=== PATIENT | male | born 1965 | race Caucasian/White ===

== ENCOUNTER → 2019-11-23 15:45 | Outpatient (BNVA) | payer MEDICARE, MEDICAID, SELFPAY | PROVIDERS: Family Provider Internal Medicine; PCP Internal Medicine; Visit Provider Urology | DX: N50.812 Left testicular pain (principal); Q55.22 Retractile testis; Z12.5 Encounter for screening for malignant neoplasm of prostate; R39.9 Unspecified symptoms and signs involving the genitourinary system; F17.210 Nicotine dependence, cigarettes, uncomplicated | CPT/HCPCS: 81001 ==

== ENCOUNTER → 2019-12-01 09:39 | Outpatient (BNVA) | payer MEDICARE, MEDICAID, SELFPAY | PROVIDERS: Family Provider Internal Medicine; PCP Internal Medicine; Visit Provider Urology | DX: N50.812 Left testicular pain (principal); Q55.22 Retractile testis; R39.9 Unspecified symptoms and signs involving the genitourinary system | CPT/HCPCS: 81001 ==

== ENCOUNTER 2020-07-10 16:34 | Emergency (ER) | payer MEDICARE, MEDICAID, SELFPAY ==
[2020-07-10 16:40] VITALS: BP 157/92; PULSE 102; RESP 18; TEMP 36.8; O2SAT 97; BMI 32.5
--- NOTE | 2020-07-10 16:48 | CTR_ITS ---
PROCEDURE INFORMATION: Exam: CT Head Without Contrast Exam date and time: 07/10/2020 4:58 PM Age: 54 years old Clinical indication: Injury or trauma; Fall; Blunt trauma (contusions or hematomas); Patient HX: PT could not hold still. Best images possible; Additional info: Frequent falling TECHNIQUE: Imaging protocol: Computed tomography of the head without contrast. Radiation optimization: All CT scans at this facility use at least one of these dose optimization techniques: automated exposure control; mA and/or kV adjustment per patient size (includes targeted exams where dose is matched to clinical indication); or iterative reconstruction. COMPARISON: No relevant prior studies available. RADIATION DOSE METRICS: Total DLP (mGy-cm): 969.8 FINDINGS: Brain: Mild diffuse cortical volume loss. No abnormal brain attenuation. No intracranial hemorrhage. Cerebral ventricles: Cavum septum pellucidum. Bones/joints: Unremarkable. No acute fracture. Paranasal sinuses: Visualized sinuses are unremarkable. No fluid levels. Mastoid air cells: Visualized mastoid air cells are well aerated. Auditory system: Filling defects in the bilateral external auditory canals are most likely cerumen. Vasculature: No hyperdense artery. Soft tissues: Right frontal scalp contusion or scar. Other findings: Images are degraded by motion artifact. CT/CT head wo con* [id number] IMPRESSION: 1. No fracture or acute intracranial abnormality. Radiation Dose CTDIVOL = (mGy): DLP = 969.8 (mGy-cm)
--- NOTE | 2020-07-10 16:48 | CTR_ITS ---
PROCEDURE INFORMATION: Exam: CT Lumbar Spine Without Contrast Exam date and time: 07/10/2020 4:58 PM Age: 54 years old Clinical indication: Injury or trauma; Fall; Blunt trauma (contusions or hematomas); Patient HX: Best images possible. PT unable to hold still or raise arms. ; Additional info: Lbp, frequent falling TECHNIQUE: Imaging protocol: Computed tomography images of the lumbar spine without contrast. Radiation optimization: All CT scans at this facility use at least one of these dose optimization techniques: automated exposure control; mA and/or kV adjustment per patient size (includes targeted exams where dose is matched to clinical indication); or iterative reconstruction. COMPARISON: MRI Lumbar Spine w/o [id number] 07/15/2015 10:01 AM RADIATION DOSE METRICS: Total DLP (mGy-cm): 0 FINDINGS: Vertebrae: Vertebral body heights are preserved. No compression fractures are noted. Vertebral alignment is physiologic. Chronic coarse bridging ossification noted of the right transverse processes from L3 through L5. This may represent a degenerative, congenital, or posttraumatic change. Discs/Spinal canal/Neural foramina: No significant intervertebral disc narrowing. There are disc bulges identified at L1-L2, L2-L3, L3-L4, L4-L5, and L5-S1. There is mild spinal stenosis at each of these levels. Soft tissues: Paraspinous soft tissues are unremarkable. CT/CT lumbar spine wo con* [id number] IMPRESSION: 1. Chronic degenerative changes are noted in the lumbar spine. 2. No acute abnormality demonstrated. Radiation Dose CTDIVOL = (mGy): DLP = 0 (mGy-cm)
--- NOTE | 2020-07-10 16:48 | CTR_ITS ---
PROCEDURE INFORMATION: Exam: CT Cervical Spine Without Contrast Exam date and time: 07/10/2020 4:58 PM Age: 54 years old Clinical indication: Injury or trauma; Fall; Blunt trauma; Patient HX: Best images, PT cannot stay still. ; Additional info: Fall, cerivcal spine point tenderness TECHNIQUE: Imaging protocol: Computed tomography images of the cervical spine without contrast. Radiation optimization: All CT scans at this facility use at least one of these dose optimization techniques: automated exposure control; mA and/or kV adjustment per patient size (includes targeted exams where dose is matched to clinical indication); or iterative reconstruction. COMPARISON: No relevant prior studies available. RADIATION DOSE METRICS: Total DLP (mGy-cm): 1345.55 FINDINGS: Bones/joints: The vertebral body alignment and stature is maintained. 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 The facets are intact with mild degenerative changes. Large subchondral cyst in the left C3 facet. No fracture. Old healed fractures in the posterior right 1st through 3rd ribs. Discs/Spinal canal/Neural foramina: Disc space narrowing at C5-C6 and C6-C7. Bilateral bony foraminal stenosis from C3-C4 through C5-C6. Disc bulges with mild central canal stenosis at C3-C4 and C5-C6. Soft tissues: Normal. Lungs: Lung apices are normal. CT/CT cervical spin wo con* [id number] IMPRESSION: 1. No acute fracture. Radiation Dose CTDIVOL = (mGy): DLP = 1345.55 (mGy-cm)
--- NOTE | 2020-07-10 16:53 | CTR_ITS ---
PROCEDURE INFORMATION: Exam: CT Thoracic Spine Without Contrast Exam date and time: 07/10/2020 4:58 PM Age: 54 years old Clinical indication: Injury or trauma; Fall; Blunt trauma (contusions or hematomas); Patient HX: Best images possible. PT unable to hold still and unable to raise arms. ; Additional info: Throacic spine pain S/P fall TECHNIQUE: Imaging protocol: Computed tomography images of the thoracic spine without contrast. Radiation optimization: All CT scans at this facility use at least one of these dose optimization techniques: automated exposure control; mA and/or kV adjustment per patient size (includes targeted exams where dose is matched to clinical indication); or iterative reconstruction. COMPARISON: No relevant prior studies available. RADIATION DOSE METRICS: Total DLP (mGy-cm): 1630.4 FINDINGS: Vertebrae: Vertebral body heights are preserved. No compression fractures are noted. Vertebral alignment is physiologic. Small bridging syndesmophytes are seen in the upper thoracic spine. Discs/Spinal canal/Neural foramina: No significant intervertebral disc narrowing. No spinal canal or neural foraminal stenosis. Other bones/joints: Old healed fractures of the right 1st through 6th posteromedial ribs. Soft tissues: The paraspinous soft tissues appear unremarkable. CT/CT thoracic spin wo con* [id number] IMPRESSION: 1. No acute fracture demonstrated. 2. Degenerative and old posttraumatic changes of the thoracic spine are noted. Radiation Dose CTDIVOL = (mGy): DLP = 1630.4 (mGy-cm)
--- NOTE | 2020-07-10 16:58 | XR_ITS ---
WS: [id number] Portable AP supine chest, 07/10/2020 Clinical Data: fall Comparison: None. Findings: No nodules, masses or effusions are seen. The heart is slightly enlarged. The pulmonary vas cularity is not increased. No pneumonia or pneumothorax is seen. There are calcified granulomas in th e left hilum and in both lungs.. There are old fractures involving the right first through third ribs in the posterior aspect and an old right clavicular fracture. XR/XR chest 1V portable [id number] Impression: Minimal cardiomegaly and old granulomatous disease.
--- NOTE | 2020-07-10 16:58 | XR_ITS ---
WS: [id number] Right shoulder, 3 views, 07/10/2020 Clinical Data: rt shoulder pain s/p fall Comparison: None. Findings: No new fractures or dislocations are seen. The AC joint is normal. There is an old right midclavicula r fracture. There are old fractures of the posterior right ribs.The soft tissues are normal. XR/XR shoulder RT min 2V* [id number] Impression: 1. Healed fractures of the posterior right ribs and right mid clavicle. 2. Negative right shoulder.
--- NOTE | 2020-07-10 17:11 | PC.NURSE ---
pt off unit to CT
--- NOTE | 2020-07-10 17:20 | ED_ITS ---
Documented by User: KRISTIAN Gonzalez 07/10/20 18:00 HPI - Fall General: Chief Complaint: Fall Stated Complaint: fall / neck pain / ETOH Time Seen by Provider: 07/10/20 16:35 Source: patient and EMS Mode of arrival: EMS Limitations: altered mental status History of Present Illness: HPI Narrative: 54-year-old male patient presents to the emergency department via EMS. EMS report patient was called to the residence, he had fallen and was not able to get up. Unknown amount of time he was down. Is complaining of neck pain and right shoulder pain. He reports numerous falls over the past several weeks, at least 1-2 daily. He reports intake of EtOH, 2 beers , today. Patient reports neck pain and low back pain upon exam. He also report c omplaining of right shoulder pain. He reports tripped on a rock which caused him to fall. MD complaint: fall Fall from: standing Fall witnessed: no Place fall occurred: home Loss of consciousness: Unsure Prolonged down time: unclear Symptoms prior to fall: other (Patient reports he tripped) Context: tripped/slipped (On a rock) Location of injury: neck, back and other (Right shoulder) Location of injury - extremities: Right: shoulder Severity: moderate Quality: dull and aching Associated symptoms-after fall: Reports confusion, difficulty walking, neck pain and weakness; Denies abdominal pain or chest pain Review of Systems General: Reports: 10 or more systems reviewed and unremarkable except in HPI and below Const: Reports: fatigue; Denies: fever(s), chills or diaphoresis Eyes: Denies: blurry vision or eye redness ENMT: Denies: throat pain, hoarseness, dental pain, disequilibrium, nasal discharge, nasal congestion, post nasal drip or sinus pain Card: Reports: orthopnea (after fall today); Denies: chest pain, palpitations or irregular heart rhythm Resp: Reports: dyspnea and wheezing; Denies: productive cough, non-productive cough, pain on inspiration or chest congestion GI: Denies: abdominal pain, nausea, vomiting, coffee ground emesis, diarrhea, constipation, fecal incontinence or hematochezia : Denies: difficulty urinating, dysuria, urinary urgency or urinary incontinence Musc: Reports: neck pain, back pain and joint pain (rt knee, rt shoulder) Skin/Breast: Denies: rash, pruritus, erythema, changing lesions or changes in skin color Neuro: Reports: difficulty walking and confusion Psych: Reports: difficulty concentrating; Denies: anxiety, depression or change in appetite Soto/Lymph: Denies: easy bruising [facility] ED PFSH: Medical History (Updated 07/10/20 @ 18:36 by LON Leblanc) Left testicular pain Lower urinary tract symptoms (LUTS) Retractile testis Family History Mother No problems noted. Father , 45-Cancer Cancer Social History Smoking and tobacco status: current every day smoker Alcohol intake: current Alcohol intake frequency: 3 or more drinks per day Marital status: Current occupational status: disabled History of recent travel: No Physical Exam Const: COMMON NORMALS: no acute distress, healthy appearing, alert and well nourished EXAM LIMITATIONS: altered mental status (smell of ETOH) GENERAL APPEARANCE: cooperative, well kempt, well hydrated and odor of alcohol detected NUTRITIONAL APPEARANCE: obese ORIENTATION/CONSCIOUSNESS: Yes awake, Yes oriented to person and Yes oriented to place HENMT: COMMON NORMALS: normocephalic, atraumatic, external ears normal, Normal external nose present and moist oral mucous membranes HEAD & SCALP: normal to inspection, normocephalic and atraumatic; no contusion, no hematoma and no scalp tenderness FACE & SINUS: normal facial exam, sinuses nontender and face symmetric NOSE: Normal external nose present and Normal nares present EXTERNAL EAR: Yes external ears normal MOUTH: Normal oral and palatal mucosa present Eye: COMMON NORMALS: Equal, round and reactive pupils present and EOMs intact bilaterally GENERAL EYE: appearance normal, both eyes and all related structures PUPIL: Yes Equal, round and reactive pupils present Neck/C-Spine: COMMON NORMALS: full ROM and no lymphadenopathy GENERAL: Yes normal visual inspection and Yes trachea midline CERVICAL SPINE: Yes cervical ROM normal, Yes pain with cervical ROM, Yes Cervical spine tenderness, Yes Trapezius muscle tenderness right and Yes collar present Lymph: LYMPHATIC: no lymphadenopathy noted Chest: COMMONS NORMALS: normal inspection of the chest, normal palpation of entire chest wall, normal inspection of the breasts and normal palpation of the breasts CHEST: No localized rib tenderness with anteroposterior compression Breast/axilla inspection: Yes normal inspection of the breasts BREAST/AXILLA PALPATION: Yes normal palpation of the breasts Resp: COMMON NORMALS: normal respiratory effort, No retractions and No use of accessory muscles EFFORT & INSPECTION: Yes able to speak in complete sentences, Yes symmetric chest movement and No respiratory distress AUSCULTATION: rhonchi right upper and right lower and wheezes right lower and right upper Cardio: COMMON NORMALS: regular rhythm, S1 normal heart sound present, S2 normal heart sound present and Peripheral pulses 2+ throughout RHYTHM: regular rhythm HEART SOUNDS: S1 normal heart sound present and S2 normal heart sound present PERIPHERAL PULSES: Peripheral pulses 2+ throughout GI: COMMON NORMALS: Normal to inspection, nondistended, normoactive bowel sounds present, Soft to palpation and non-tender INSPECTION: Yes normal to inspection PALPATION: Yes Soft to palpation : COMMON NORMALS: Yes no CVA tenderness BLADDER/KIDNEY EXAM: Yes no CVA tenderness Back/Pelvis: COMMON NORMALS: no CVA tenderness THORACIC SPINE/UPPER BACK: Yes normal to inspection, Yes thoracic spinal tenderness, Yes paraspinal muscle tenderness and Yes paraspinal muscle spasm LUMBAR SPINE/LOWER BACK: Yes normal to inspection, Yes lumbar spinal tenderness, Yes paraspinal muscle tenderness, Yes paraspinal muscle spasm, Yes straight leg raise positive right and Yes straight leg raise positive left SACROILIAC JOINTS: Yes SI joints normal Extremity: COMMON NORMALS: normal to inspection and capillary refill normal GENERAL: Yes normal exam except as noted RIGHT UPPER EXTREMITY: Yes shoulder joint (non-tender) Right shoulder: Yes Right shoulder joint inspection exam (small ecchymosis to the anterior axilla), Yes palpation, Yes Right shoulder joint ROM exam (limited due to pain) and Yes Right shoulder joint neurovascular exam (distally intact) RIGHT LOWER EXTREMITY: Yes knee joint Right knee: Yes palpation (pain with palpation), Yes ROM (limited flexion due to pain) and Yes neurovascular exam (distally intact) Neuro: DAMIEN COMA SCALE: document [facility] findings [place] coma scale eye opening: Spontaneous [place] coma scale verbal response: Confused Damien coma scale motor response: Obey commands Damien coma scale total score: 14 COMMON NORMALS: no focal motor deficits SENSORIUM/ORIENTATION: Yes alert, Yes oriented to person and Yes oriented to place SPEECH: speech normal GAIT: Yes Unable to assess gait MOTOR EXAM: 5/5 motor strength present throughout DEEP TENDON REFLEXES: Right ankle reflex intensity grade: 2+ and Left ankle reflex intensity grade: 2+ Right pupil size (mm): 4 Left pupil size (mm): 4 Psych: COMMON NORMALS: mental status grossly normal, Normal thought process present, cooperative, normal affect and speech normal APPEARANCE: Yes well kempt ATTITUDE: Yes calm ACTIVITY/MOTOR BEHAVIOR: Yes appropriate eye contact SPEECH: Yes normal speech THOUGHT PROCESS: Normal thought process present Skin: COMMON NORMALS: no rashes or lesions noted and turgor normal GENERAL SKIN EXAM: no rashes or lesions noted and turgor normal Course Vital Signs: Vital signs: Vital Signs Temperature 98.2 F 07/10/20 16:40 Pulse Rate 105 H 07/10/20 17:52 Respiratory Rate 17 07/10/20 17:52 Blood Pressure 148/87 07/10/20 17:52 Pulse Oximetry 96 07/10/20 17:52 - Fall Lab Data: Labs: Lab Results 07/10/20 07/10/20 Range/Units 17:57 17:57 WBC 8.6 (4.0-10.0) 10^3/ uL RBC 4.53 (4.1-5.3) 10^6/u L Hgb 14.7 (11.7-16.6) g/dL Hct 43.0 (42.0-52.0) % MCV 94.9 H (80-94) fL MCH 32.5 (28.0-34.0) pg MCHC 34.2 (30.0-36.0) g/dL RDW 11.5 L (12.1-15.1) % Plt Count 324 (130-400) 10^3/c mm MPV 9.2 (7.4-10.4) fL Neut % (Auto) 54.7 % Lymph % (Auto) 34.3 % [place] % (Auto) 8.8 % Eos % (Auto) 1.4 % Baso % (Auto) 0.6 % Neut # (Auto) 4.71 (1.8-7.7) 10^3/u L Lymph # (Auto) 3.0 (0.8-4.8) 10^3/u L [place] # (Auto) 0.8 (0.2-0.9) 10^3/u L Eos # (Auto) 0.1 (0.0-0.8) 10^3/u L Baso # (Auto) 0.1 (0.0-0.1) 10^3/u L Nucleated RBC % (a uto) 0 % Nucleated RBCs # 0.0 /100WBC Sodium 141 (136-145) mmol/L Potassium 3.9 (3.5-5.1) mmol/L Chloride 104 (98-107) mmol/L Carbon Dioxide 27 (22-29) mmol/L Anion Gap 13.9 (5-19) BUN 14 (6-20) mg/dL Creatinine 0.7 (0.7-1.2) mg/dL GFR Calculation 117.1 (90-130) mL/min Glucose 132 H (65-115) mg/dL Calculated Osmolal ity 294 (285-295) mOsm/k g Calcium 8.8 (8.5-10.5) mg/dL Total Bilirubin 0.2 (0.15-1.2) mg/dL AST 25 (0-40) U/L ALT 37 (0-41) U/L Alkaline Phosphata se 77 (40-130) IU/L Creatine Kinase 347 H* (39-308) U/L Total Protein 6.3 L (6.6-8.7) g/dL Albumin 4.0 (3.5-5.2) g/dL Globulin 2.3 (1.3-4.6) g/dL Ethyl Alcohol < 10 (0-10) mg/dL Discharge Plan Discharge Patient Disposition: Home Clinical Impression: Neck and shoulder pain Back pain Qualifiers: Back pain location: back pain in other location Chronicity: chronic Qualified Code(s): M54.9 - Dorsalgia, unspecified Condition: Stable Prescriptions: New tramadol 50 mg tablet 50 mg PO TID PRN (Reason: pain) Qty: 10 RF: 0 prednisone 10 mg tablet 20 mg PO DAILY 7 Days Qty: 14 RF: 0 No Action quetiapine [Seroquel] 25 mg tablet 50 mg PO DAILY RF: 0 tamsulosin 0.4 mg capsule 0.4 mg PO .at bedtime Qty: 90 RF: 3 Discharge Orders: Discharge ED (Routine); Ordered 07/10/20 Ordered By: Alberto Barker Referrals: Edward Garcia DO [Primary Care Provider] - Discharge Diet: Usual diet Discharge Activity: Increase activity as tolerated Patient Instructions: Cervical Radiculopathy (ED), Chronic Back Pain (ED) Activity Restrictions/Additional Instructions: Follow-up with medical provider as directed. Take medications as prescribed. Return to the ER or your medical provider if condition worsens. Please read and understand discharge instructions. If any questions ask please. Follow-up your primary care provider concerning your right arm pain that you are having in your neck pain also consider requesting MRI to further evaluate your chronic neck and back changes. Coding Level of Care Code ED Accounts Adjustable Clerk for Chg Fwd Exam Comprehensive Documented by User: LON Leblanc 07/10/20 18:38 HPI - Fall General: Chief Complaint: Fall Stated Complaint: fall / neck pain / ETOH Time Seen by Provider: 07/10/20 16:35 [facility] ED PFSH: Medical History (Updated 07/10/20 @ 18:36 by LON Leblanc) Left testicular pain Lower urinary tract symptoms (LUTS) Retractile testis Family History Mother No problems noted. Father , 45-Cancer Cancer Social History Smoking and tobacco status: current every day smoker Alcohol intake: current Alcohol intake frequency: 3 or more drinks per day Marital status: Current occupational status: disabled History of recent travel: No Course Vital Signs: Vital signs: Vital Signs Temperature 98.2 F 07/10/20 16:40 Pulse Rate 105 H 07/10/20 17:52 Respiratory Rate 17 07/10/20 17:52 Blood Pressure 148/87 07/10/20 17:52 Pulse Oximetry 96 07/10/20 17:52 MDM - Fall MDM Narrative: Medical decision making narrative: I have just discussed case with Dr. dunham. Patient knows he is to follow-up with his primary care provider see about getting MRI on his neck does have chronic degenerative changes neck and back. Patient denies any alcohol abuse call level appeared fine here today patient is drinking to help with his discomfort. Lab Data: Labs: Lab Results 07/10/20 07/10/20 Range/Units 17:57 17:57 WBC 8.6 (4.0-10.0) 10^3/ uL RBC 4.53 (4.1-5.3) 10^6/u L Hgb 14.7 (11.7-16.6) g/dL Hct 43.0 (42.0-52.0) % MCV 94.9 H (80-94) fL MCH 32.5 (28.0-34.0) pg MCHC 34.2 (30.0-36.0) g/dL RDW 11.5 L (12.1-15.1) % Plt Count 324 (130-400) 10^3/c mm MPV 9.2 (7.4-10.4) fL Neut % (Auto) 54.7 % Lymph % (Auto) 34.3 % [place] % (Auto) 8.8 % Eos % (Auto) 1.4 % Baso % (Auto) 0.6 % Neut # (Auto) 4.71 (1.8-7.7) 10^3/u L Lymph # (Auto) 3.0 (0.8-4.8) 10^3/u L [place] # (Auto) 0.8 (0.2-0.9) 10^3/u L Eos # (Auto) 0.1 (0.0-0.8) 10^3/u L Baso # (Auto) 0.1 (0.0-0.1) 10^3/u L Nucleated RBC % (a uto) 0 % Nucleated RBCs # 0.0 /100WBC Sodium 141 (136-145) mmol/L Potassium 3.9 (3.5-5.1) mmol/L Chloride 104 (98-107) mmol/L Carbon Dioxide 27 (22-29) mmol/L Anion Gap 13.9 (5-19) BUN 14 (6-20) mg/dL Creatinine 0.7 (0.7-1.2) mg/dL GFR Calculation 117.1 (90-130) mL/min Glucose 132 H (65-115) mg/dL Calculated Osmolal ity 294 (285-295) mOsm/k g Calcium 8.8 (8.5-10.5) mg/dL Total Bilirubin 0.2 (0.15-1.2) mg/dL AST 25 (0-40) U/L ALT 37 (0-41) U/L Alkaline Phosphata se 77 (40-130) IU/L Creatine Kinase 347 H* (39-308) U/L Total Protein 6.3 L (6.6-8.7) g/dL Albumin 4.0 (3.5-5.2) g/dL Globulin 2.3 (1.3-4.6) g/dL Ethyl Alcohol < 10 (0-10) mg/dL Discharge Plan Discharge Patient Disposition: Home Clinical Impression: Neck and shoulder pain Back pain Qualifiers: Back pain location: back pain in other location Chronicity: chronic Qualified Code(s): M54.9 - Dorsalgia, unspecified Condition: Stable Prescriptions: New tramadol 50 mg tablet 50 mg PO TID PRN (Reason: pain) Qty: 10 RF: 0 prednisone 10 mg tablet 20 mg PO DAILY 7 Days Qty: 14 RF: 0 No Action quetiapine [Seroquel] 25 mg tablet 50 mg PO DAILY RF: 0 tamsulosin 0.4 mg capsule 0.4 mg PO .at bedtime Qty: 90 RF: 3 Discharge Orders: Discharge ED (Routine); Ordered 07/10/20 Ordered By: Alberto Barker Referrals: Edward Garcia DO [Primary Care Provider] - Discharge Diet: Usual diet Discharge Activity: Increase activity as tolerated Patient Instructions: Cervical Radiculopathy (ED), Chronic Back Pain (ED) Activity Restrictions/Additional Instructions: Follow-up with medical provider as directed. Take medications as prescribed. Return to the ER or your medical provider if condition worsens. Please read and understand discharge instructions. If any questions ask please. Follow-up your primary care provider concerning your right arm pain that you are having in your neck pain also consider requesting MRI to further evaluate your chronic neck and back changes. Coding Level of Care Code ED Accounts Adjustable Clerk for Joe Fwd Exam Comprehensive
--- NOTE | 2020-07-10 17:23 | XR_ITS ---
WS: [id number] Right knee, 3 views, 07/10/2020 Clinical Data: rt knee pain Comparison: None. Findings: No new fractures or dislocations are seen. There is an healed fracture of the proximal right fibula T here is narrowing of the medial joint compartment with small spurs of the medial femoral condyle and medial tibial plateau.There is an anterior superior and a posterior superior patellar spur but no pat ellar fracture. The soft tissues are normal. XR/XR knee RT 3V* [id number] Impression: 1. 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 2. Old fracture of the proximal right fibula. 3. Negative for new fractures.
--- NOTE | 2020-07-10 17:36 | PC.NURSE ---
pt back from CT, Xray in room
[2020-07-10 17:52] VITALS: BP 148/87; PULSE 105; RESP 17; O2SAT 96
[2020-07-10] MEDS: sodium chloride 0.9% 500 ML 999 ML IV (18:04)
[2020-07-10 18:06] LABS: Basophils # 0.1 10^3/uL (0.0-0.1); Basophils % 0.6 %; Eosinophils # 0.1 10^3/uL (0.0-0.8); Eosinophils % 1.4 %; Hemoglobin 14.7 g/dL (11.7-16.6); Lymphocytes % 34.3 %; Mean Corpuscular HGB Conc 34.2 g/dL (30.0-36.0); Mean Corpuscular Hemoglobin 32.5 pg (28.0-34.0); Mean Corpuscular Volume 94.9 fL (80-94); Mean Platelet Volume 9.2 fL (7.4-10.4); Monocytes # 0.8 10^3/uL (0.2-0.9); Monocytes % 8.8 %; Neutrophils # 4.71 10^3/uL (1.8-7.7); Neutrophils % 54.7 %; Nucleated Red Blood Cells % 0 %; Platelet Count 324 10^3/cmm (130-400); Red Blood Count 4.53 10^6/uL (4.1-5.3); Red Cell Distribution Width 11.5 % (12.1-15.1); White Blood Count 8.6 10^3/uL (4.0-10.0)
[2020-07-10] MEDS: cyanocobalamin 1,000 mcg/mL SDV 1000 MCG IM (18:08)
[2020-07-10 18:22] LABS: Alanine Aminotransferase 37 U/L (0-41); Alkaline Phosphatase 77 IU/L (40-130); Aspartate Amino Transferase 25 U/L (0-40); Blood Urea Nitrogen 14 mg/dL (6-20); Calcium 8.8 mg/dL (8.5-10.5); Carbon Dioxide 27 mmol/L (22-29); Chloride 104 mmol/L (98-107); Globulin 2.3 g/dL (1.3-4.6); Glomerular Filtration Rate 117.1 mL/min (90-130); Glucose 132 mg/dL (65-115); Osmolality Calculated 294 mOsm/kg (285-295); Sodium 141 mmol/L (136-145); Total Bilirubin 0.2 mg/dL (0.15-1.2); Total Protein 6.3 g/dL (6.6-8.7)
[2020-07-10 18:23] LABS: Alcohol Level < 10 mg/dL (0-10); Anion Gap 13.9 (5-19); Potassium 3.9 mmol/L (3.5-5.1)
[2020-07-10 18:24] LABS: Creatine Phosphokinase 347 U/L (39-308)
[2020-07-10 18:54] VITALS: BP 147/99; PULSE 109; RESP 17; O2SAT 98
--- NOTE | 2020-07-11 00:46 | PC.NURSE ---
well patient call at [phone] by this RN no answer by patient
--- NOTE | 2020-07-11 06:16 | PC.NURSE ---
This RN called patient home phone for well check, no answer at [phone]
== END 2020-07-10 18:55 | disposition home or self-care (01) ==
PROVIDERS: Nurse Practitioner Family; Emergency Provider Nurse Practitioner Family; PCP Internal Medicine
DX: M54.2 Cervicalgia (principal); M54.9 Dorsalgia, unspecified; M25.511 Pain in right shoulder; F17.210 Nicotine dependence, cigarettes, uncomplicated
CPT/HCPCS: 12345; 70450; 71045; 72125; 72128; 72131; 73030; 73562; 80053; 80307; 82550; 85025; 96372; 99282; 99284; J3411; J3420; J7040

== ENCOUNTER 2020-08-02 19:59 | Inpatient (IN) | payer MEDICARE, MEDICAID, SELFPAY ==
[2020-08-02 19:59] VITALS: BP 163/112; PULSE 94; RESP 16; TEMP 37; O2SAT 98; BMI 31.7
--- NOTE | 2020-08-02 20:39 | XRR_ITS ---
PROCEDURE INFORMATION: Exam: XR Chest, 1 View Exam date and time: 08/02/2020 8:52 PM Age: 54 years old Clinical indication: Injury or trauma; Blunt trauma (contusions or hematomas); Injury date: 2 weeks ago; Injury details: Fall, right rib pain. ; Additional info: Dyspnea. Right rib pain TECHNIQUE: Imaging protocol: XR of the chest Views: 1 view. Total images: 1 COMPARISON: CR XR chest 1V portable [id number] 07/10/2020 5:30 PM FINDINGS: Lungs: No visible active interstitial or alveolar airspace disease. Evidence of antecedent granulomatous disease. Pleural space: Unremarkable. No pleural effusion. No pneumothorax. Heart/Mediastinum: Cardiac structures and configuration stable and within normal limits for age. Bones/joints: Unremarkable. XR/XR chest 1V portable [id number] IMPRESSION: Nonacute.
--- NOTE | 2020-08-02 20:49 | XRR_ITS ---
NOTE: Order was edited. Original signature date/time was: 08/02/20 2313 PROCEDURE INFORMATION: Exam: XR Bilateral Hips with Pelvis when Performed Exam date and time: 08/02/2020 8:52 PM Age: 54 years old Clinical indication: Injury or trauma; Blunt trauma (contusions or hematomas); Bilateral; Injury details: Fall x 2 weeks ago, hit right side of body, right leg pain and right rib pain. ; Prior surgery; Surgery type: Lt hip; Additional info: Falls/pain TECHNIQUE: Imaging protocol: XR bilateral hips with pelvis when performed. Views: 2 views. Total images: 5 COMPARISON: MRI Hip w/o RIGHT [id number] 07/19/2019 9:53 AM FINDINGS: Bones/joints: No visible acute osseous abnormality. Left total hip prosthesis in satisfactory position without evidence for loosening or dislocation. Soft tissues: Associated extensive myositis ossificans left hip. MTDD XR/XR hip BI 2V wo/w pel [id number] IMPRESSION: Nonacute.
--- NOTE | 2020-08-02 20:51 | ECG_ITS ---
[facility] Test Date: 2020-08-02 Pat Name: Spenser Lunsford Department: Room: Gender: Male Principal Trainer: : 1965 Requested By: Johnny Kaiser Order Number: [id number] Diaz MD: Magdy Washington M.D. Measurements Intervals [place] Rate: 93 P: 75 UT: 119 QRS: 56 QRSD: 81 T: 76 QT: 360 QTc: 448 Interpretive Statements SINUS RHYTHM WITH SINUS ARRHYTHMIA WITH SHORT UT INTERVAL No previous ECG available for comparison Electronically Signed On 08-03-2020 16:43:03 APPLICATION SUPPORT ENGINEER by Magdy Washington M.D. [email or web address] medical [email or web address] county [email or web address] Skip [id number] f
--- NOTE | 2020-08-02 20:51 | ED_ITS ---
HPI - Fall General: Chief Complaint: Fall Stated Complaint: WEAKNESS Time Seen by Provider: 08/02/20 20:09 History of Present Illness: HPI Narrative: The patient is a 54-year-old male with known alcoholism and drug abuse comes to the ER by ambulance today compl aining of continued right rib pain and bilateral hip pain related to falls 2 and 4 weeks ago. He says he comes in today to get admitted because he needs to stay for 3 days so he can get into a skilled nursing for rehab so he can get better to take care of his kids. He says he has chronic issues and weakness and shortness of breath related to his COPD and admits he is short of breath chronically with exertion and he is short of breath during history taking. He also admits to chronic alcoholism and stopping drinking alcohol within the last week or 2. He says over the past number of days he has started having his lower extremities shake uncontrollably and stiffen. Associated symptoms-after fall: Denies abdominal pain, chest pain, confusion, difficulty walking, headache(s) or neck pain Review of Systems General: Reports: 10 or more systems reviewed and unremarkable except in HPI and below Const: Denies: fatigue Eyes: Denies: change in vision, blurry vision or eye redness ENMT: Denies: throat pain, swelling of lips/tongue, ear or mastoid pain or nasal congestion Card: Reports: dyspnea on exertion; Denies: chest pain, palpitations, irregular heart rhythm, edema or orthopnea Resp: Reports: dyspnea and non-productive cough; Denies: productive cough GI: Denies: abdominal pain, diarrhea or GI cramping : Denies: flank pain, urinary frequency or urinary urgency Musc: Denies: neck pain, back pain, extremity pain, joint pain, joint redness, limited range of motion or muscle weakness Skin/Breast: Denies: rash, pruritus, erythema, skin pain or skin tenderness Neuro: Reports: involuntary movements (Of lower extremities); Denies: headache(s), numbness in extremities, weakness in extremities, sensory changes, difficulty walking, dizziness, confusion or Slurred speech present Psych: Denies: anxiety or depression Endo: Denies: polyuria All/Imm: Denies: urticaria, throat swelling or tongue swelling [facility] ED PFSH: Medical History COPD (chronic obstructive pulmonary disease) Left testicular pain Lower urinary tract symptoms (LUTS) Retractile testis Surgical History S/P hip arthroscopy Family History Mother No problems noted. Father , 45-Cancer Cancer Social History Smoking and tobacco status: current every day smoker Alcohol intake: current Alcohol intake frequency: 3 or more drinks per day Marital status: Current occupational status: disabled History of recent travel: No Physical Exam Narrative: EXAM NARRATIVE: He has myoclonic jerking of his lower extremities and horizontal nystagmus. These findings are consistent with alcohol withdrawal disorder. Also he is tachycardic which is also consistent. He has mild tenderness to his right chest wall and hips bilaterally. He has many scabs on his calfs and feet bilaterally possibly from injecting drugs versus picking scabs. He has very poor dentition. Const: COMMON NORMALS: no acute distress, average body habitus, patient oriented x3, no limitations, alert and well nourished GENERAL APPEARANCE: comfortable, well developed and disheveled ORIENTATION/CONSCIOUSNESS: Yes awake, Yes oriented to person, Yes oriented to place and Yes oriented to time HENMT: COMMON NORMALS: normocephalic, external ears normal and Normal external nose present HEAD & SCALP: normal to inspection and normocephalic NOSE: Normal external nose present EXTERNAL EAR: Yes external ears normal MOUTH: Normal oral and palatal mucosa present THROAT: posterior oropharynx normal Eye: COMMON NORMALS: Equal, round and reactive pupils present and EOMs intact bilaterally GENERAL EYE: appearance normal, both eyes and all related structures PUPIL: Yes Equal, round and reactive pupils present EOM: Yes Nystagmus present Neck/C-Spine: COMMON NORMALS: full ROM, no lymphadenopathy, no meningeal signs and no JVD GENERAL: Yes normal visual inspection Lymph: LYMPHATIC: no lymphadenopathy noted Chest: COMMONS NORMALS: normal inspection of the chest (Mild discomfort to palpation of right lower chest wall. ) Resp: COMMON NORMALS: normal respiratory effort, No retractions, No use of accessory muscles and percussion normal EFFORT & INSPECTION: Yes able to sp eak in complete sentences AUSCULTATION: wheezes and diminished lung sounds PERCUSSION: percussion normal Cardio: COMMON NORMALS: no JVD, regular rhythm, S1 normal heart sound present, S2 normal heart sound present and Peripheral pulses 2+ throughout RATE: tachycardic RHYTHM: regular rhythm HEART SOUNDS: S1 normal heart sound present and S2 normal heart sound present PERIPHERAL PULSES: Peripheral pulses 2+ throughout GI: COMMON NORMALS: Normal to inspection, nondistended, normoactive bowel sounds present, Soft to palpation, non-tender and no masses INSPECTION: Yes normal to inspection PALPATION: Yes Soft to palpation : COMMON NORMALS: Yes no CVA tenderness BLADDER/KIDNEY EXAM: Yes no CVA t enderness Back/Pelvis: COMMON NORMALS: no CVA tenderness, thoracic and lumbar spine normal to inspection, no thoracic nor lumbar tenderness and thoraco-lumbar ROM normal Extremity: COMMON NORMALS: normal to inspection, full ROM, capillary refill normal, no joint enlargement and no pedal edema NARRATIVE EXTREMITY EXAM: Scabs to lower extremities approximately 20 in number possibly from picking scabs versus drug injection but unclear of cause. GENERAL: Yes normal exam except as noted Neuro: COMMON NORMALS: patient oriented x3, CN's II-XII intact bilaterally, moves all extremities, no focal motor deficits and no sensory deficits noted SENSORIUM/ORIENTATION: Yes alert, Yes oriented to person, Yes oriented to place and Yes oriented to time MENINGEAL SIGNS: Yes no meningeal signs GAIT: Yes Unable to assess gait MOTOR EXAM: 5/5 motor strength present throughout (Power 4 to 5 out of 5 in all extremities. No focal deficit) OTHER: Distal lower extremities bilaterally. Consistent with alcohol withdrawal disorder Psych: COMMON NORMALS: mental status grossly normal, Normal thought process present, cooperative and speech normal APPEARANCE: Yes unkempt ATTITUDE: Yes paranoid, Yes bizarre and Yes uncooperative SPEECH: Yes normal speech THOUGHT PROCESS: Normal thought process present Skin: COMMON NORMALS: no rashes or lesions noted GENERAL SKIN EXAM: no rashes or lesions noted Course Vital Signs: Vital signs: Vital Signs Temperature 98.6 F 08/02/20 19:59 Pulse Rate 79 08/02/20 21:54 Respiratory Rate 16 08/02/20 21:40 Blood Pressure 163/112 08/02/20 19:59 Pulse Oximetry 97 08/02/20 21:40 MDM - Fall MDM Narrative: Medical decision making narrative: This patient came in for pain related to recent falls although he is clearly in alcohol withdrawal disorder with myoclonus to bilateral lower extremities. He is also tachycardic. He was given Ativan and is resting comfortably. Recommended admission to the ICU which he is excepting of. accepts to ICU. Differential Diagnosis: Fall Differential Diagnosis: Likely syncope and compression fracture Lab Data: Labs: Lab Results 08/02/20 08/02/20 08/02/20 Range/Units 20:40 20:40 20:40 WBC 5.8 (4.0-10.0) 10^3/ uL RBC 4.52 (4.1-5.3) 10^6/u L Hgb 14.5 (11.7-16.6) g/dL Hct 42.9 (42.0-52.0) % MCV 94.9 H (80-94) fL MCH 32.1 (28.0-34.0) pg MCHC 33.8 (30.0-36.0) g/dL RDW 11.3 L (12.1-15.1) % Plt Count 403 H (130-400) 10^3/c mm MPV 9.7 (7.4-10.4) fL Neut % (Auto) 49.3 % Lymph % (Auto) 36.1 % Candler % (Auto) 10.9 % Eos % (Auto) 2.8 % Baso % (Auto) 0.7 % Neut # (Auto) 2.84 (1.8-7.7) 10^3/u L Lymph # (Auto) 2.1 (0.8-4.8) 10^3/u L Candler # (Auto) 0.6 (0.2-0.9) 10^3/u L Eos # (Auto) 0.2 (0.0-0.8) 10^3/u L Baso # (Auto) 0.0 (0.0-0.1) 10^3/u L Nucleated RBC % (a uto) 0 % Nucleated RBCs # 0.0 /100WBC PT (12.1-14.9) SECO NDS INR (0.8-1.2) Specimen Type Sample Site ABG pH (7.35-7.45) ABG pCO2 (35-45) mmHg ABG pO2 (80.0-100.0) mmH g ABG HCO3 (22-26) mmol/L ABG Base Excess (-2.0-2.0) mmol/ L Servando Test Hematocrit (42-52) % Hgb O2 Saturation (95-100) % Carboxyhemoglobin (0.4-20.1) %THgb Methemoglobin (0.4-1.5) % Total Hemoglobin (14-18) g/dL O2 Delivery Device FiO2 % Road Design Engineer ID Sodium 143 (136-145) mmol/L Potassium 4.1 (3.5-5.1) mmol/L Chloride 105 (98-107) mmol/L Carbon Dioxide 30 H (22-29) mmol/L Anion Gap 12.1 (5-19) BUN 10 (6-20) mg/dL Creatinine 0.7 (0.7-1.2) mg/dL GFR Calculation 117.1 (90-130) mL/min Glucose 125 H (65-115) mg/dL Calculated Osmolal ity 297 H (285-295) mOsm/k g Lactate 1.7 (0.5-2.2) mmol/L Calcium 9.2 (8.5-10.5) mg/dL Total Bilirubin 0.3 (0.15-1.2) mg/dL AST 23 (0-40) U/L ALT 32 (0-41) U/L Alkaline Phosphata se 209 H (40-130) IU/L Troponin T Baselin e (0-15) ng/L Troponin T 120 Min [place] (0-15) ng/L Delta Troponin T (0-10) ABS# Total Protein 6.2 L (6.6-8.7) g/dL Albumin 4.0 (3.5-5.2) g/dL Globulin 2.2 (1.3-4.6) g/dL TSH 2.34 (0.27-4.20) uIU/ mL Urine Color (Yellow) Urine Appearance (CLEAR) Urine pH (5-7) Ur Specific Gravit y (1.005-1.030) Urine Protein (Negative) Urine Glucose (UA) (Normal) Urine Ketones (Negative) Urine Blood (Negative) Urine Nitrate (Negative) Urine Bilirubin (Negative) Urine Urobilinogen (Negative) mg/dL Ur Leukocyte Dede ase (Negative) Urine Opiates Scre en (Negative) ng/mL Ur Barbiturates Sc reen (Negative) ng/mL Ur Phencyclidine S crn (Negative) ng/mL Ur Amphetamines Sc reen (Negative) ng/mL U Benzodiazepines Scrn (Negative) ng/mL Urine Cocaine Scre en (Negative) ng/mL U Marijuana (THC) Screen (Negative) ng/mL Ethyl Alcohol < 10 (0-10) mg/dL Influenza Type A A g (Negative) Influenza Type B A g (Negative) 08/02/20 08/02/20 08/02/20 Range/Units 20:40 20:40 21:50 WBC (4.0-10.0) 10^3/ uL RBC (4.1-5.3) 10^6/u L Hgb (11.7-16.6) g/dL Hct (42.0-52.0) % MCV (80-94) fL MCH (28.0-34.0) pg MCHC (30.0-36.0) g/dL RDW (12.1-15.1) % Plt Count (130-400) 10^3/c mm MPV (7.4-10.4) fL Neut % (Auto) % Lymph % (Auto) % Candler % (Auto) % Eos % (Auto) % Baso % (Auto) % Neut # (Auto) (1.8-7.7) 10^3/u L Lymph # (Auto) (0.8-4.8) 10^3/u L Candler # (Auto) (0.2-0.9) 10^3/u L Eos # (Auto) (0.0-0.8) 10^3/u L Baso # (Auto) (0.0-0.1) 10^3/u L Nucleated RBC % (a uto) % Nucleated RBCs # /100WBC PT 12.70 (12.1-14.9) SECO NDS INR 0.93 (0.8-1.2) Specimen Type Arterial Sample Site Radial, left ABG pH 7.44 (7.35-7.45) ABG pCO2 45.4 H (35-45) mmHg ABG pO2 69.9 L (80.0-100.0) mmH g ABG HCO3 30.7 H (22-26) mmol/L ABG Base Excess 5.6 H (-2.0-2.0) mmol/ L Servando Test Pos Hematocrit 45.8 (42-52) % Hgb O2 Saturation 92.7 L (95-100) % Carboxyhemoglobin 2.3 (0.4-20.1) %THgb Methemoglobin 0.6 (0.4-1.5) % Total Hemoglobin 14.9 (14-18) g/dL O2 Delivery Device Room air FiO2 21.0 % Road Design Engineer ID Jlg Sodium (136-145) mmol/L Potassium (3.5-5.1) mmol/L Chloride (98-107) mmol/L Carbon Dioxide (22-29) mmol/L Anion Gap (5-19) BUN (6-20) mg/dL Creatinine (0.7-1.2) mg/dL GFR Calculation (90-130) mL/min Glucose (65-115) mg/dL Calculated Osmolal ity (285-295) mOsm/k g Lactate (0.5-2.2) mmol/L Calcium (8.5-10.5) mg/dL Total Bilirubin (0.15-1.2) mg/dL AST (0-40) U/L ALT (0-41) U/L Alkaline Phosphata se (40-130) IU/L Troponin T Baselin e 22 H (0-15) ng/L Troponin T 120 Min [place] (0-15) ng/L Delta Troponin T (0-10) ABS# Total Protein (6.6-8.7) g/dL Albumin (3.5-5.2) g/dL Globulin (1.3-4.6) g/dL TSH (0.27-4.20) uIU/ mL Urine Color (Yellow) Urine Appearance (CLEAR) Urine pH (5-7) Ur Specific Gravit y (1.005-1.030) Urine Protein (Negative) Urine Glucose (UA) (Normal) Urine Ketones (Negative) Urine Blood (Negative) Urine Nitrate (Negative) Urine Bilirubin (Negative) Urine Urobilinogen (Negative) mg/dL Ur Leukocyte Dede ase (Negative) Urine Opiates Scre en (Negative) ng/mL Ur Barbiturates Sc reen (Negative) ng/mL Ur Phencyclidine S crn (Negative) ng/mL Ur Amphetamines Sc reen (Negative) ng/mL U Benzodiazepines Scrn (Negative) ng/mL Urine Cocaine Scre en (Negative) ng/mL U Marijuana (THC) Screen (Negative) ng/mL Ethyl Alcohol (0-10) mg/dL Influenza Type A A g (Negative) Influenza Type B A g (Negative) 08/02/20 08/02/20 08/02/20 Range/Units 21:53 21:53 21:58 WBC (4.0-10.0) 10^3/ uL RBC (4.1-5.3) 10^6/u L Hgb (11.7-16.6) g/dL Hct (42.0-52.0) % MCV (80-94) fL MCH (28.0-34.0) pg MCHC (30.0-36.0) g/dL RDW (12.1-15.1) % Plt Count (130-400) 10^3/c mm MPV (7.4-10.4) fL Neut % (Auto) % Lymph % (Auto) % Candler % (Auto) % Eos % (Auto) % Baso % (Auto) % Neut # (Auto) (1.8-7.7) 10^3/u L Lymph # (Auto) (0.8-4.8) 10^3/u L Candler # (Auto) (0.2-0.9) 10^3/u L Eos # (Auto) (0.0-0.8) 10^3/u L Baso # (Auto) (0.0-0.1) 10^3/u L Nucleated RBC % (a uto) % Nucleated RBCs # /100WBC PT (12.1-14.9) SECO NDS INR (0.8-1.2) Specimen Type Sample Site ABG pH (7.35-7.45) ABG pCO2 (35-45) mmHg ABG pO2 (80.0-100.0) mmH g ABG HCO3 (22-26) mmol/L ABG Base Excess (-2.0-2.0) mmol/ L Servando Test Hematocrit (42-52) % Hgb O2 Saturation (95-100) % Carboxyhemoglobin (0.4-20.1) %THgb Methemoglobin (0.4-1.5) % Total Hemoglobin (14-18) g/dL O2 Delivery Device FiO2 % Road Design Engineer ID Sodium (136-145) mmol/L Potassium (3.5-5.1) mmol/L Chloride (98-107) mmol/L Carbon Dioxide (22-29) mmol/L Anion Gap (5-19) BUN (6-20) mg/dL Creatinine (0.7-1.2) mg/dL GFR Calculation (90-130) mL/min Glucose (65-115) mg/dL Calculated Osmolal ity (285-295) mOsm/k g Lactate (0.5-2.2) mmol/L Calcium (8.5-10.5) mg/dL Total Bilirubin (0.15-1.2) mg/dL AST (0-40) U/L ALT (0-41) U/L Alkaline Phosphata se (40-130) IU/L Troponin T Baselin e (0-15) ng/L Troponin T 120 Min [place] (0-15) ng/L Delta Troponin T (0-10) ABS# Total Protein (6.6-8.7) g/dL Albumin (3.5-5.2) g/dL Globulin (1.3-4.6) g/dL TSH (0.27-4.20) uIU/ mL Urine Color Yellow (Yellow) Urine Appearance Clear (CLEAR) Urine pH 7 (5-7) Ur Specific Gravit y 1.010 (1.005-1.030) Urine Protein Neg (Negative) Urine Glucose (UA) Norm (Normal) Urine Ketones 1+ H (Negative) Urine Blood Neg (Negative) Urine Nitrate Negative (Negative) Urine Bilirubin Neg (Negative) Urine Urobilinogen Norm (Negative) mg/dL Ur Leukocyte Dede ase Negative (Negative) Urine Opiates Scre en Negative (Negative) ng/mL Ur Barbiturates Sc reen Negative (Negative) ng/mL Ur Phencyclidine S crn Negative (Negative) ng/mL Ur Amphetamines Sc reen Positive H (Negative) ng/mL U Benzodiazepines Scrn Negative (Negative) ng/mL Urine Cocaine Scre en Negative (Negative) ng/mL U Marijuana (THC) Screen Positive H (Negative) ng/mL Ethyl Alcohol (0-10) mg/dL Influenza Type A A g Negative (Negative) Influenza Type B A g Negative (Negative) 08/02/20 Range/Units 23:30 WBC (4.0-10.0) 10^3/ uL RBC (4.1-5.3) 10^6/u L Hgb (11.7-16.6) g/dL Hct (42.0-52.0) % MCV (80-94) fL MCH (28.0-34.0) pg MCHC (30.0-36.0) g/dL RDW (12.1-15.1) % Plt Count (130-400) 10^3/c mm MPV (7.4-10.4) fL Neut % (Auto) % Lymph % (Auto) % Candler % (Auto) % Eos % (Auto) % Baso % (Auto) % Neut # (Auto) (1.8-7.7) 10^3/u L Lymph # (Auto) (0.8-4.8) 10^3/u L Candler # (Auto) (0.2-0.9) 10^3/u L Eos # (Auto) (0.0-0.8) 10^3/u L Baso # (Auto) (0.0-0.1) 10^3/u L Nucleated RBC % (a uto) % Nucleated RBCs # /100WBC PT (12.1-14.9) SECO NDS INR (0.8-1.2) Specimen Type Sample Site ABG pH (7.35-7.45) ABG pCO2 (35-45) mmHg ABG pO2 (80.0-100.0) mmH g ABG HCO3 (22-26) mmol/L ABG Base Excess (-2.0-2.0) mmol/ L Servando Test Hematocrit (42-52) % Hgb O2 Saturation (95-100) % Carboxyhemoglobin (0.4-20.1) %THgb Methemoglobin (0.4-1.5) % Total Hemoglobin (14-18) g/dL O2 Delivery Device FiO2 % Road Design Engineer ID Sodium (136-145) mmol/L Potassium (3.5-5.1) mmol/L Chloride (98-107) mmol/L Carbon Dioxide (22-29) mmol/L Anion Gap (5-19) BUN (6-20) mg/dL Creatinine (0.7-1.2) mg/dL GFR Calculation (90-130) mL/min Glucose (65-115) mg/dL Calculated Osmolal ity (285-295) mOsm/k g Lactate (0.5-2.2) mmol/L Calcium (8.5-10.5) mg/dL Total Bilirubin (0.15-1.2) mg/dL AST (0-40) U/L ALT (0-41) U/L Alkaline Phosphata se (40-130) IU/L Troponin T Baselin e (0-15) ng/L Troponin T 120 Min [place] 24.45 H (0-15) ng/L Delta Troponin T 2.45 (0-10) ABS# Total Protein (6.6-8.7) g/dL Albumin (3.5-5.2) g/dL Globulin (1.3-4.6) g/dL TSH (0.27-4.20) uIU/ mL Urine Color (Yellow) Urine Appearance (CLEAR) Urine pH (5-7) Ur Specific Gravit y (1.005-1.030) Urine Protein (Negative) Urine Glucose (UA) (Normal) Urine Ketones (Negative) Urine Blood (Negative) Urine Nitrate (Negative) Urine Bilirubin (Negative) Urine Urobilinogen (Negative) mg/dL Ur Leukocyte Dede ase (Negative) Urine Opiates Scre en (Negative) ng/mL Ur Barbiturates Sc reen (Negative) ng/mL Ur Phencyclidine S crn (Negative) ng/mL Ur Amphetamines Sc reen (Negative) ng/mL U Benzodiazepines Scrn (Negative) ng/mL Urine Cocaine Scre en (Negative) ng/mL U Marijuana (THC) Screen (Negative) ng/mL Ethyl Alcohol (0-10) mg/dL Influenza Type A A g (Negative) Influenza Type B A g (Negative) Discharge Plan Discharge Patient Disposition: Admitted As Inpatient Clinical Impression: Episode of generalized weakness Alcohol withdrawal Qualifiers: Complication of substance-induced condition: with unspecified complication Qualified Code(s): F10.239 - Alcohol dependence with withdrawal, unspecified Condition: Stable Discharge Diet: Usual diet Coding Level of Care Code ED Industrial Analyst for g Fwd Exam Comprehensive
[2020-08-02 21:08] LABS: Basophils % 0.7 %; Eosinophils # 0.2 10^3/uL (0.0-0.8); Eosinophils % 2.8 %; Hematocrit 42.9 % (42.0-52.0); Hemoglobin 14.5 g/dL (11.7-16.6); Lymphocytes # 2.1 10^3/uL (0.8-4.8); Lymphocytes % 36.1 %; Mean Corpuscular HGB Conc 33.8 g/dL (30.0-36.0); Mean Corpuscular Hemoglobin 32.1 pg (28.0-34.0); Mean Corpuscular Volume 94.9 fL (80-94); Mean Platelet Volume 9.7 fL (7.4-10.4); Monocytes # 0.6 10^3/uL (0.2-0.9); Monocytes % 10.9 %; Neutrophils # 2.84 10^3/uL (1.8-7.7); Neutrophils % 49.3 %; Nucleated Red Blood Cells % 0 %; Platelet Count 403 10^3/cmm (130-400); Red Blood Count 4.52 10^6/uL (4.1-5.3); Red Cell Distribution Width 11.3 % (12.1-15.1); White Blood Count 5.8 10^3/uL (4.0-10.0)
[2020-08-02 21:18] LABS: INR 0.93 (0.8-1.2)
[2020-08-02 21:28] LABS: Lactate (Lactic Acid level) 1.7 mmol/L (0.5-2.2)
[2020-08-02 21:30] LABS: Troponin(5th) Baseline 22 ng/L (0-15)
[2020-08-02 21:34] LABS: Alanine Aminotransferase 32 U/L (0-41); Alkaline Phosphatase 209 IU/L (40-130); Anion Gap 12.1 (5-19); Aspartate Amino Transferase 23 U/L (0-40); Blood Urea Nitrogen 10 mg/dL (6-20); Calcium 9.2 mg/dL (8.5-10.5); Carbon Dioxide 30 mmol/L (22-29); Chloride 105 mmol/L (98-107); Globulin 2.2 g/dL (1.3-4.6); Glomerular Filtration Rate 117.1 mL/min (90-130); Glucose 125 mg/dL (65-115); Osmolality Calculated 297 mOsm/kg (285-295); Potassium 4.1 mmol/L (3.5-5.1); Sodium 143 mmol/L (136-145); Thyroid Stimulating Hormone 2.34 uIU/mL (0.27-4.20); Total Bilirubin 0.3 mg/dL (0.15-1.2); Total Protein 6.2 g/dL (6.6-8.7)
[2020-08-02 21:39] LABS: Alcohol Level < 10 mg/dL (0-10)
[2020-08-02 21:40] VITALS: PULSE 77; RESP 16; O2SAT 97
[2020-08-02] MEDS: albuterol 8 gm MDI 2 PUFF INHALATION (21:40)
[2020-08-02 21:54] VITALS: PULSE 79
[2020-08-02 22:01] LABS: Add Urine Microscopic? NO
[2020-08-02 22:02] LABS: Blood Urine Neg (Negative); Glucose Urine UA Norm (Normal); Ketones Urine 1+ (Negative); Protein Urine Neg (Negative); Urine Appearance Clear (CLEAR); Urine Color Yellow (Yellow); pH Urine 7 (5-7)
[2020-08-02 22:03] LABS: Bilirubin Urine Neg (Negative); Leukocyte Esterase Urine Negative (Negative); Nitrate Urine Negative (Negative); Urobilinogen Urine Norm (Negative)
[2020-08-02 22:04] VITALS: BP 144/80; PULSE 109; RESP 18; O2SAT 95
[2020-08-02 22:06] LABS: ABG PCO2 45.4 mmHg (35-45); ABG PH Result 7.44 (7.35-7.45); Arterial Blood Gas Hematocrit 45.8 % (42-52); Base Excess ABG 5.6 mmol/L (-2.0-2.0); Blood Gas Allen Test Pos; Blood Gas Sample Site Radial, left; Blood Gas Sample Type Arterial; Carboxyhemoglobin 2.3 %THgb (0.4-20.1); HCO3 ABG 30.7 mmol/L (22-26); HGB O2 Sat 92.7 % (95-100); Methemoglobin 0.6 % (0.4-1.5); Oxygen Device ROOM AIR; PO2 ABG 69.9 mmHg (80.0-100.0); Total Hemoglobin 14.9 g/dL (14-18)
[2020-08-02 22:11] LABS: Amphetamines Screen Urine Positive (Negative); Barbiturates Screen Urine Negative (Negative); Benzodiazepines Screen Urine Negative (Negative); Cocaine Screen Urine Negative (Negative); Opiate Screen Urine Negative (Negative); PCP Screen Urine Negative (Negative); THC Screen Urine Positive (Negative)
[2020-08-02] MEDS: LORazepam 2 mg/mL INJ 1 mL 1 MG IVP (22:32)
[2020-08-02] MEDS: cefTRIAXone 1,000 MG in sodium chloride 0.9% (plus) 50 ML 100 MG IV (22:34)
[2020-08-02] MEDS: sodium chloride 0.9% 1,000 ML 999 ML IV (22:35)
[2020-08-02 23:28] LABS: Influenza A by IFA Negative (Negative); Influenza B by IFA Negative (Negative)
[2020-08-03] VITALS (63 sets, daily range): BP systolic 128–180; BP diastolic 81–110; PULSE 94–125; RESP 13–32; TEMP 36.5–37.2; O2SAT 92–99
--- NOTE | 2020-08-03 00:07 | P.HP_ITS ---
Providers/Chief Complaint Primary Care Provider: Edward Garcia DO Chief Complaint: WEAKNESS History of Present Illness Spenser Lunsford is a 54 year old male who is endorsing previous history of methamphetamine abuse, alcohol intoxication presented today for generalized weakness. Patient is stating that he fell twice last few months, his recent fall was about 2 weeks ago, he is not a reliable historian, he stating that he came to the hospital because he was feeling extremely weak and was thinking of getting to a jail in order to strengthen himself to take care of his children. Patient kept falling asleep during my interview, he stated that today he took sleeping pills and then he was not able to move his arms that is why he called EMS. He is endorsing methamphetamine abuse and stating marijuana is in my system: Diagnosis in the ER revealed tachycardia, hypertension, I do not have neck or head CT which I have requested however chest x-ray and hip x-ray did not show any fractures, Patient shows signs of alcohol withdrawal versus opioid withdrawal has autonomic dysfunction, myoclonus of lower extremity, his attention span is very short, no facial asymmetry NIH 6 last known well time is unknown, code stroke was not called in the ER, he will not be a TPA candidate because he is out of window because of unknown time of beginning of symptom. Drug screen revealed amphetamines and marijuana alcohol level undetectable telemetry showing sinus tachycardia with hypertension Review of Systems Const: Reports: chills and body aches Eyes: Denies: change in vision ENMT: Denies: throat pain Card: Denies: chest pain Resp: Denies: dyspnea GI: Denies: abdominal pain : Denies: flank pain Musc: Reports: neck pain, back pain, extremity pain, joint stiffness and limited range of motion Skin/Breast: Reports: rash, skin tenderness, changing lesions and changes in skin color Neuro: Denies: headache(s) Psych: Denies: anxiety or depression Endo: Denies: polyuria Soto/Lymph: Denies: easy bruising All/Imm: Denies: urticaria Medications/Allergies Home Medications Medication Instructions Recorded Confirmed Last Taken Type quetiapine 25 mg tablet 50 mg PO DAILY tab 08/23/19 07/10/20 07/10/20 History tamsulosin 0.4 mg capsule 0.4 mg PO .at bedtime #90 cap 11/28/19 07/10/20 Unknown Rx tramadol 50 mg PO TID PRN #10 tab 07/10/20 Unknown Rx Allergies Allergy/AdvReac Type Severity Reaction Status Date / Time No Known Allergies Allergy Verified 12/01/19 09:38 PFSH Acute PFSH: Medical History COPD (chronic obstructive pulmonary disease) Left testicular pain Lower urinary tract symptoms (LUTS) Retractile testis Surgical History S/P hip arthroscopy Family History Mother No problems noted. Father , 45-Cancer Cancer Social History Smoking and tobacco status: current every day smoker Alcohol intake: current Alcohol intake frequency: 3 or more drinks per day Marital status: Current occupational status: disabled History of recent travel: No Vitals/I&O/Wt Last Vital Signs Temp 98.6 F 08/02/20 19:59 Pulse 79 08/02/20 21:54 Resp 16 08/02/20 21:40 BP 163/112 08/02/20 19:59 Pulse Ox 97 08/02/20 21:40 Weight last 48 hrs Weight 97.522 kg Physical Exam Narrative: EXAM NARRATIVE: Middle-aged male with unkept appearance Signs of alcohol/opiate withdrawal with dilated pupil, skin goosebumps, t achypnea, tachycardia patient keeps falling asleep during my evaluation and interview He has some activity against gravity of right and lower upper extremities, he open his eyes to verbal command, no facial asymmetry, rotational nystagmus noted, weak handgrip bilateral, hip extension left leg 3/5, right leg 2/5 Myoclonus noted of lower extremities S1, S2 sinus tachycardia clinically looks dehydrated Abdomen soft nontender Multiple needle track alba No active sign of cellulitis of lower extremities No acute respiratory distress Bilateral breath sounds without adventitious rhonchi or crackles Data : 08/02/20 20:40 08/02/20 20:40 A&P Assessment and plan (1) Alcohol intoxication: Status: Acute (2) Neck pain: Status: Acute Additional A&P Information Generalized weakness NIH score 6 Last well known time unknown, symptoms started today however patient notes a history of recurrent falls endorsing taking sleeping pills today not a TPA candidate I am requesting CT head and CT cervical neck We will start him on aspirin and Plavix along high-dose statins He also depicts sign of opioid withdrawal We will keep him on CIWA protocol with monitoring ICU Check B12 level Alcohol intoxication: Alcohol level undetectable, started thiamine folic acid and CIWA protocol Neck pain: Patient is stating having multiple falls in last few weeks No active neck pain or headache Complaining of limited range of motion 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 Yost Features of left epididymitis also noted in November of this year, plan was removal of testicle but patient wanted to hold off because his pain resolved He had received ceftriaxone in the ER Not complaining of any active genital pain at this time Full code Start diet once he is more awake and alert DVT prophylaxis Lovenox Attestations Medical Necessity Statement*: Anticipating stay in hospital to cross more than 2 midnights for management of alcohol intoxication and bilateral upper extremity paresis Time Spent in Patient Care: (>than 50% of time spent in counselling and/or direct pt care on unit) . 50mins Coding Level of Care Code Acute Intrusion Analyst for Joe Ledezma Diagnoses Alcohol intoxication F10.929 Neck pain M54.2
--- NOTE | 2020-08-03 00:09 | CTR_ITS ---
PROCEDURE INFORMATION: Exam: CT Cervical Spine Without Contrast Exam date and time: 08/03/2020 12:10 AM Age: 54 years old Clinical indication: Injury or trauma; Fall; Blunt trauma; Injury date: Today; Additional info: Fall, neck pain TECHNIQUE: Imaging protocol: Computed tomography images of the cervical spine without contrast. Total images: 375 Radiation optimization: All CT scans at this facility use at least one of these dose optimization techniques: automated exposure control; mA and/or kV adjustment per patient size (includes targeted exams where dose is matched to clinical indication); or iterative reconstruction. COMPARISON: CT cervical spin wo con* [id number] 07/10/2020 5:05 PM RADIATION DOSE METRICS: Total DLP (mGy-cm): 2518.68 FINDINGS: Bones/joints: No acute fracture. Normal alignment. Degenerative disease with spondylosis deformans and large anterior claw syndesmophytes C4, C5, C6, and C7. Left facet arthrosis C3/C4. Simple bone cyst again identified left facet C3. Incidental note of dysplastic appearing right 1st, 2nd, and 3rd ribs. Discs/Spinal canal/Neural foramina: Mild degenerative disc disease C5/C6 with a mild posterior disc bulge osteophyte complex not resulting in significant central canal stenosis. Bilateral neural foraminal stenosis, right greater than left, C5/C6. No significant disc protrusion. No severe spinal canal stenosis. Lungs: Lung apices are normal. Soft tissues: Unremarkable. CT/CT cervical spin wo con* [id number] IMPRESSION: No acute findings. Radiation Dose CTDIVOL = (mGy): DLP = 2518.68 (mGy-cm)
--- NOTE | 2020-08-03 00:10 | CTR_ITS ---
PROCEDURE INFORMATION: Exam: CT Head Without Contrast Exam date and time: 08/03/2020 12:12 AM Age: 54 years old Clinical indication: Injury or trauma; Fall; Blunt trauma (contusions or hematomas); Injury date: Today TECHNIQUE: Imaging protocol: Computed tomography of the head without contrast. Total images: 233 Radiation optimization: All CT scans at this facility use at least one of these dose optimization techniques: automated exposure control; mA and/or kV adjustment per patient size (includes targeted exams where dose is matched to clinical indication); or iterative reconstruction. COMPARISON: CT head wo con* [id number] 07/10/2020 4:59 PM RADIATION DOSE METRICS: Total DLP (mGy-cm): 931.28 FINDINGS: Brain: No evidence of active or acute intracranial pathologic process, hemorrhage, or trauma. No visible evidence of diffuse cerebral edema or generalized demyelination. No mass effect. No midline shift. Atrophic changes greater than anticipated for patient's chronological age. Cerebral ventricles: Patent cavum septum pellucidum which is a normal anatomical variant. Bones/joints: Unremarkable. No acute fracture. Paranasal sinuses: Visualized sinuses are unremarkable. No fluid levels. Mastoid air cells: Visualized mastoid air cells are well aerated. Soft tissues: Unremarkable. CT/CT head wo con* [id number] IMPRESSION: No evidence of active or acute intracranial pathologic process, hemorrhage, or trauma. Radiation Dose CTDIVOL = (mGy): DLP = 931.28 (mGy-cm)
[2020-08-03 00:13] LABS: Troponin 5 2HR 24.45 ng/L (0-15); Troponin 5 2HR Delta 2.45 ABS# (0-10)
--- NOTE | 2020-08-03 02:51 | ECG_ITS ---
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 Measurements Intervals [place] Rate: 99 P: 77 NE: 120 QRS: 62 QRSD: 88 T: 79 QT: 365 QTc: 470 Interpretive Statements SINUS RHYTHM NONSPECIFIC T-WAVE ABNORMALITY Compared to ECG 08/02/2020 23:01:24 T-wave abnormality now present Sinus arrhythmia no longer present Short NE interval no longer present Electronically Signed On 08-03-2020 16:56:47 SUPERVISOR QUALITY CONTROL by Magdy Washington M.D. [id number]
--- NOTE | 2020-08-03 03:17 | PC.NURSE ---
pt initially refusing provide urine sample and blood work due to concerns of positive drug screen of street drugs. Dr notified. Pt consented to blood work after being informed that was notified of his refusal.
[2020-08-03 03:34] LABS: Troponin 5 6HR 25.84 ng/L (0-15); Troponin 5 6HR Delta 3.84 ng/L (0-12)
--- NOTE | 2020-08-03 07:23 | PC.NURSE ---
during pt rounding, pt had become incontinent of bladder. while changing bedding and clothing, IV became dislodged. 18g L AC. Dayshijason RN notified
--- NOTE | 2020-08-03 10:01 | CTR_ITS ---
PROCEDURE INFORMATION: Exam: CT Thoracic Spine Without Contrast Exam date and time: 08/03/2020 3:26 PM Age: 54 years old Clinical indication: Injury or trauma; Blunt trauma (contusions or hematomas); Patient HX: Recent falls C/O neck and upper back pain w bue weakness; Additional info: Back pain after fall few weeks ago, trouble walking TECHNIQUE: Imaging protocol: Computed tomography images of the thoracic spine without contrast. Radiation optimization: All CT scans at this facility use at least one of these dose optimization techniques: automated exposure control; mA and/or kV adjustment per patient size (includes targeted exams where dose is matched to clinical indication); or iterative reconstruction. COMPARISON: CT thoracic spin wo con* [id number] 07/10/2020 5:09 PM RADIATION DOSE METRICS: Total DLP (mGy-cm): 2401.52 FINDINGS: Vertebrae: Mild chronic appearing T7 compression deformity. No acute fracture. Normal alignment. Discs/Spinal canal/Neural foramina: There are degenerative changes throughout the visualized spine including marginal osteophyte formations, endplate degenerative changes, and facet arthropathy. Multilevel disc space narrowing. Other bones/joints: There are acute appearing fractures through the right 9th, 10th, and the left 10th rib with. Multiple old right rib fractures. Soft tissues: Edema and/or hematoma is present in the soft tissues adjacent to the fracture sites. Lymph nodes: There are calcified mediastinal and perihilar lymph nodes consistent with prior granulomatous exposure. Lungs: There are pulmonary parenchymal calcifications consistent with remote granulomatous organism exposure. Small right pleural effusion with adjacent compressive atelectasis. CT/CT thoracic spin wo con* [id number] IMPRESSION: 1. There are acute appearing fractures through the right 9th, 10th, and the left 10th rib with. Small right pleural effusion. 2. There are degenerative changes as described above. Radiation Dose CTDIVOL = (mGy): DLP = 2401.52 (mGy-cm)
[2020-08-03] MEDS: clopidogrel 75 mg Tablet PO (10:30)
[2020-08-03] MEDS: folic acid 1 mg Tablet PO (10:30)
[2020-08-03] MEDS: aspirin 81 mg EC Tablet PO (10:30)
[2020-08-03] MEDS: atorvastatin 40 mg Tablet 80 MG PO (10:31)
[2020-08-03] MEDS: enoxaparin 40 mg/0.4 mL Syringe SUBCUT (10:33)
[2020-08-03] MEDS: multivitamin therapeutic Tablet 1 TAB PO (10:34)
[2020-08-03 11:16] LABS: Folate Level 8.9 ng/mL (4.5-32.2)
[2020-08-03 11:17] LABS: Vitamin B12 470 pg/mL (232-1245)
--- NOTE | 2020-08-03 13:20 | PM.PN ---
Subjective Subjective: Interval history: Has been having progressive weakness, numbness in the right upper extremity since his fall several weeks ago with neck injury at the time, but also has had another fall between then and now when he hit his right side upper back after falling in the bathtub. Reports today could not lift or open his right forearm and hand, with numbness, as well as weakness on the left side as well, and this prompted him to come to the hospital. Also says has been unable to walk unassisted for the past 2 weeks. Reports pain also in his lower back with electric shocks , although not radiating anywhere. Reports that sometimes when trying to raise his legs they rise up on their own. Reports he took Seroquel yesterday morning. He is requesting for something to eat. States he did not eat dinner yesterday evening. Vitals/I&O/Wt Last Vital Signs Temp 98.9 F 08/03/20 09:00 Pulse 108 H 08/03/20 09:00 Resp 26 H 08/03/20 09:00 BP 138/89 08/03/20 09:00 Pulse Ox 94 08/03/20 09:00 Weight last 48 hrs Weight 97.522 kg Physical Exam Const: COMMON NORMALS: no acute distress and patient oriented x3 GENERAL APPEARANCE: disheveled ORIENTATION/CONSCIOUSNESS: Yes awake (Seomewhat slowed mentation, sluggish responses.) HENMT: COMMON NORMALS: oropharynx normal Neck/C-Spine: COMMON NORMALS: no meningeal signs and no JVD Resp: COMMON NORMALS: normal respiratory effort and clear to auscultation bilaterally AUSCULTATION: clear to auscultation bilaterally Cardio: COMMON NORMALS: no JVD, regular rhythm, S1 normal heart sound present, S2 normal heart sound present and No murmurs present (Cardio) RHYTHM: regular rhythm HEART SOUNDS: S1 normal heart sound present and S2 normal heart sound present GI: COMMON NORMALS: Normal to inspection, nondistended, normoactive bowel sounds present, Soft to palpation and non-tender PALPATION: Yes Soft to palpation Extremity: COMMON NORMALS: no joint enlargement and no pedal edema Neuro: COMMON NORMALS: patient oriented x3 and moves all extremities MENINGEAL SIGNS: Yes no meningeal signs GAIT: Yes Unable to assess gait SENSORY EXAM: Yes extremities (Reports paresthesia and decreased sensation over the radial aspect of his r) MOTOR EXAM: Other motor observations present (Mild myoclonus LE, worse on the left. Power 2/5 on the right, 3/5 left upp) Skin: COMMON NORMALS: no rashes or lesions noted GENERAL SKIN EXAM: no rashes or lesions noted Data : 08/02/20 20:40 08/02/20 20:40 A&P Assessment and plan (1) Alcohol intoxication: He still appears somewhat intoxicated, but actually states does not drink alcohol in close to 2 weeks. EtOH level is low. Symptoms may be related to another cause, however, there is possible alcohol withdrawal. Continue CIWA protocol. Reported history of taking sleeping pills. Per prior review of his visit to ER, concern is that he is self-medicating his chronic back problems with alcohol, possibly other medicines. He says he was instructed not to drink any alcohol by his PCP, and says that is why he has not had any for some time, but says he did not stop drinking right away because he had to finish his supply first . Urine tox screen is positive for marijuana but also amphetamines. With acute encephalopathy, will monitor mental status, provide supportive care. Appears to have perhaps some mild clonus, which appears perhaps is better compared to admission. Reports last dose Seroquel was yesterday. Thiamine, folic acid supplementation, multivitamin. Status: Acute (2) Arm weakness: Reports weakness in bilateral arms, on the left side does have some pain with passive range of motion, without any erythema, tenderness on palpation of the shoulder. Says has chronic rotator cuff injury there. However, on the right shoulder is painless, and on the right is where his weakness is worst. Also reports paresthesia/partial numbness on the radial side of the forearm, but also of the hand. He had previously had a fracture of his right forearm, which had to be operated on, and bones set, however, says did not have issues with residual weakness or paresthesia of the extremity afterward. CT head rather unremarkable with a normal anatomical variant, CT C-spine with degenerative changes noted with spondylosis deformans and large anterior claw syndesmophytes C4, C5, C6 and 7, left facet arthrosis C3/C4. Mild degenerative disc disease C5-C6, with mild posterior disc bulge osteophyte complex not resulting in significant central canal stenosis. Bilateral neuroforaminal stenosis, right greater than left C5/C6. No significant disc protrusion. No severe spinal canal stenosis. Incidentally noted dysplastic appearing 1-3 right-sided ribs. I am not sure whether this is enough to explain severity of his symptoms, and he also reports leg weakness as well. At this time will request for CT angiogram head and neck to rule out vascular abnormality, including dissection of neck or intracranial vessels given recent multiple falls, injury to his neck, injury to his upper back. Will request CT thoracic spine. Will request also MRI head and neck, although these likely cannot be accomplished today. Assessment by PT and OT. Status: Acute (3) Neck pain: As above. Status: Acute (4) Unable to ambulate: Complains of weakness in lower extremities, recurrent falls. Also complains of sharp pain from the calluses on the balls of his feet and large toes which are poking him like pains . Does not have any ulcers on his feet. We will start with CT thoracic spine given recent injury there, pain. Monitor and treat withdrawal from alcohol or other substance. Discourage self-medication of symptoms with alcohol or other medications not intended for the purpose. May benefit from follow-up with pain clinic. PT OT. Check vitamin B12. Folic acid level. A1c. Status: Acute Additional A&P Information Alcohol intoxication: Alcohol level undetectable, started thiamine folic acid and CIWA protocol Troponin abnormality: 2225, without significant delta. No chest pain. He is a current everyday smoker. Does have risk factors for coronary disease, and may benefit from additional assessment towards coronary disease, stress testing on nonurgent basis once he is doing better. We will continue aspirin, statin. Check lipid profile. Urine tox screen was positive for amphetamine. Alk phos elevation: Check GGT. 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 Retractile testes: Continue follow-up with urology. He had marked improvement after initiation of tamsulosin by Dr. Yost Features of left epididymitis also noted in November of this year, plan was removal of testicle but patient wanted to hold off because his pain resolved He had received ceftriaxone in the ER Not complaining of any active genital pain at this time Full code DVT prophylaxis Lovenox Attestations Medical Necessity Statement*: Continue admission for assessment management of progressive weakness of upper extremities, right greater than left, but also lower extremities, with progressive loss of ability to ambulate. Coding Level of Care Code Acute Artist Mannequin Coloring for Chg Fwd Exam Comprehensive Diagnoses Alcohol intoxication F10.929 Arm weakness R29.898 Neck pain M54.2 Unable to ambulate R26.2
--- NOTE | 2020-08-03 13:23 | CTR_ITS ---
PROCEDURE INFORMATION: Exam: CT Angiography Head With Contrast Exam date and time: 08/03/2020 3:26 PM Age: 54 years old Clinical indication: Injury or trauma; Blunt trauma; Head; Patient HX: Recent falls C/O neck and upper back pain w bue weakness; Additional info: Recent falls, neck pain, trouble walking, upper extrem weak TECHNIQUE: Imaging protocol: Computed tomography angiography of the head with intravenous contrast. 3D rendering (Not supervised by radiologist): MIP and/or 3D reconstructed images were created by the technologist. Radiation optimization: All CT scans at this facility use at least one of these dose optimization techniques: automated exposure control; mA and/or kV adjustment per patient size (includes targeted exams where dose is matched to clinical indication); or iterative reconstruction. Contrast material: OMNI 350; Contrast volume: 95 ml; Contrast route: INTRAVENOUS (IV); COMPARISON: CT head wo con* [id number] 08/03/2020 12:14 AM RADIATION DOSE METRICS: Total DLP (mGy-cm): 2283.89 FINDINGS: ANTERIOR CIRCULATION: Right internal carotid artery: Scattered atherosclerotic plaque most prominent in the region of the carotid siphons. Intracranial segment is patent with no significant stenosis. No aneurysm. Right middle cerebral artery: Unremarkable. No occlusion or significant stenosis. No aneurysm. Right anterior cerebral artery: Unremarkable. No occlusion or significant stenosis. No aneurysm. Left internal carotid artery: Scattered atherosclerotic plaque most prominent in the region of the carotid siphons. Intracranial segment is patent with no significant stenosis. No aneurysm. Left middle cerebral artery: Unremarkable. No occlusion or significant stenosis. No aneurysm. Left anterior cerebral artery: Unremarkable. No occlusion or significant stenosis. No aneurysm. POSTERIOR CIRCULATION: Right vertebral artery: Unremarkable. No occlusion or significant stenosis. No aneurysm. Left vertebral artery: Unremarkable. No occlusion or significant stenosis. No aneurysm. Basilar artery: Unremarkable. No occlusion or significant stenosis. No aneurysm. Right posterior cerebral artery: Unremarkable. No occlusion or significant stenosis. No aneurysm. Left posterior cerebral artery: Normal variant origin. No occlusion or significant stenosis. No aneurysm. Brain: There is diffuse cerebral atrophy present, consistent with this patient's age. No definite mass, mass effect, or midline shift. Cerebral ventricles: No ventriculomegaly. Bones/joints: Unremarkable. No acute fracture. Soft tissues: Unremarkable. IMPRESSION: No large vessel stenosis or occlusion. PROCEDURE INFORMATION: Exam: CT Angiography Neck With Contrast Exam date and time: 08/03/2020 3:26 PM Age: 54 years old Clinical indication: Injury or trauma; Blunt trauma; Head; Patient HX: Recent falls C/O neck and upper back pain w bue weakness; Additional info: Recent falls, neck pain, trouble walking, upper extrem weak TECHNIQUE: Imaging protocol: Computed tomography angiography of the neck with intravenous contrast. 3D rendering (Not supervised by radiologist): MIP and/or 3D reconstructed images were created by the technologist. Radiation optimization: All CT scans at this facility use at least one of these dose optimization techniques: automated exposure control; mA and/or kV adjustment per patient size (includes targeted exams where dose is matched to clinical indication); or iterative reconstruction. Contrast material: OMNI 350; Contrast volume: 95 ml; Contrast route: INTRAVENOUS (IV); COMPARISON: CT head wo con* [id number] 08/03/2020 12:14 AM RADIATION DOSE METRICS: Total DLP (mGy-cm): 2283.89 FINDINGS: Right common carotid artery: No stenosis. No dissection or occlusion. Right internal carotid artery: Scattered atherosclerotic plaque. No stenosis of the extracranial segment. No dissection or occlusion. Right external carotid artery: No occlusion or stenosis of the origin. Right vertebral artery: There is calcified plaque at the proximal aspect of the right vertebral artery near the origin with a short segment of 20% stenosis. No dissection or occlusion. Left common carotid artery: No stenosis. No dissection or occlusion. Left internal carotid artery: Scattered atherosclerotic plaque. No stenosis of the extracranial segment. No dissection or occlusion. Left external carotid artery: No occlusion or stenosis of the origin. Left vertebral artery: No stenosis. No dissection or occlusion. Bones/joints: There are old right rib fractures. Old right clavicle fracture. Please see the CT scan of the thoracic spine for description of the lower ribs. Soft tissues: There are calcified mediastinal lymph nodes consistent with prior granulomatous exposure. There are pulmonary parenchymal calcifications consistent with remote granulomatous organism exposure. CT/CT angio headneck* [id number] IMPRESSION: No stenosis or occlusion. REFERENCES: NASCET CRITERIA. The degree of internal carotid artery stenosis is based on NASCET criteria. Normal is no stenosis. Mild is less than 50% stenosis. Moderate is 50-69% stenosis. Severe is 70% to 99% stenosis. Total occlusion is no detectable patent lumen. Radiation Dose CTDIVOL = (mGy): DLP = 2283.89~2283.89 (mGy-cm)
[2020-08-03] MEDS: iohexol 350 mg/mL 100 mL Btl IV (15:47)
[2020-08-03 16:19] LABS: Creatine Phosphokinase 292 U/L (39-308); Gamma Glutamyl Transferase 31 U/L (8-61); Magnesium 1.8 mg/dL (1.7-2.3)
[2020-08-03] MEDS: LORazepam 2 mg/mL INJ 1 mL IVP (22:08)
[2020-08-04] VITALS (24 sets, daily range): BP systolic 129–189; BP diastolic 84–123; PULSE 81–119; RESP 14–26; TEMP 36.2–37.1; O2SAT 91–99
[2020-08-04 05:23] LABS: Basophils # 0.1 10^3/uL (0.0-0.1); Basophils % 0.9 %; Eosinophils # 0.1 10^3/uL (0.0-0.8); Eosinophils % 2.4 %; Hematocrit 45.4 % (42.0-52.0); Hemoglobin 15.3 g/dL (11.7-16.6); Lymphocytes # 2.6 10^3/uL (0.8-4.8); Lymphocytes % 43.7 %; Mean Corpuscular HGB Conc 33.7 g/dL (30.0-36.0); Mean Corpuscular Hemoglobin 32.1 pg (28.0-34.0); Mean Corpuscular Volume 95.2 fL (80-94); Mean Platelet Volume 9.3 fL (7.4-10.4); Monocytes # 0.6 10^3/uL (0.2-0.9); Monocytes % 10.8 %; Neutrophils # 2.45 10^3/uL (1.8-7.7); Nucleated Red Blood Cells % 0 %; Platelet Count 369 10^3/cmm (130-400); Red Blood Count 4.77 10^6/uL (4.1-5.3); White Blood Count 5.8 10^3/uL (4.0-10.0)
[2020-08-04 05:54] LABS: Chol HDL Ratio 4.22 mg/dL (1.0-5.00); Cholesterol 156 mg/dL (0-200); HDL Cholesterol 37 mg/dL (60-100); LDL Cholesterol Calculated 92 mg/dL (50-129); LDL HDL Ratio 2.49 RATIO (0.00-3.22); Triglycerides 137 mg/dL (0-150)
[2020-08-04 07:52] LABS: Estmated Average Glucose 117; Hemoglobin A1C 5.7 % (4.0-6.0)
[2020-08-04 09:00] LABS: Alanine Aminotransferase 26 U/L (0-41); Albumin Level 3.9 g/dL (3.5-5.2); Alkaline Phosphatase 195 IU/L (40-130); Anion Gap 14.7 (5-19); Aspartate Amino Transferase 23 U/L (0-40); Blood Urea Nitrogen 12 mg/dL (6-20); Calcium 9.1 mg/dL (8.5-10.5); Carbon Dioxide 25 mmol/L (22-29); Chloride 102 mmol/L (98-107); Glomerular Filtration Rate 117.1 mL/min (90-130); Glucose 98 mg/dL (65-115); Osmolality Calculated 286 mOsm/kg (285-295); Potassium 3.7 mmol/L (3.5-5.1); Sodium 138 mmol/L (136-145); Total Bilirubin 0.5 mg/dL (0.15-1.2); Total Protein 6.9 g/dL (6.6-8.7)
[2020-08-04] MEDS: clopidogrel 75 mg Tablet PO (09:31)
[2020-08-04] MEDS: folic acid 1 mg Tablet PO (09:31)
[2020-08-04] MEDS: thiamine 100 mg Tablet PO (09:31)
[2020-08-04] MEDS: aspirin 81 mg EC Tablet PO (09:31)
[2020-08-04] MEDS: multivitamin therapeutic Tablet 1 TAB PO (09:32)
--- NOTE | 2020-08-04 10:58 | PM.PN ---
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 mild clonus persisting, reports last dose Seroquel was yesterday. Thiamine, folic acid supplementation, multivitamin. Status: Acute (2) Arm weakness: Reports weakness in bilateral arms, and also right leg, apepars more proximal weakness CT head rather unremarkable with a normal anatomical variant, CT C-spine with degenerative changes noted with spondylosis deformans and large anterior claw syndesmophytes C4, C5, C6 and 7, left facet arthrosis C3/C4. Mild degenerative disc disease C5-C6, with mild posterior disc bulge osteophyte complex not resulting in significant central canal stenosis. Bilateral neuroforaminal stenosis, right greater than left C5/C6. No significant disc protrusion. No severe spinal canal stenosis. Incidentally noted dysplastic appearing 1-3 right-sided ribs. I am not sure whether this is enough to explain severity of his symptoms, and he also reports leg weakness as well. CTa head and neck withotu acute occlusions, acute rib fractures noted B/L, add incentive spirometry Appears to have more proximal weakness and scaly red rash over face and neck folds, which may be seborrheic dermatitis vs photosensitivity,However given proximal muscle weakness therefore also concerned about possibility of dermatomyositis. CK was normal. Check ESR, CRP, GIANNI rheumatology screening, HIV screening, acute hepatitis screen, RPR screen additionally to rule out tertiary syphilis. We will discuss with rheumatology tomorrow if patient may additionally benefit from muscle biopsy if fails to improve. Status: Acute (3) Neck pain: As above. Status: Acute (4) Unable to ambulate: Complains of weakness in lower extremities, recurrent falls. Also complains of sharp pain from the calluses on the balls of his feet and large toes which are poking him like pains . Does not have any ulcers on his feet. Monitor and treat withdrawal from alcohol or other substance. Discourage self-medication of symptoms with alcohol or other medications not intended for the purpose. May benefit from follow-up with pain clinic. PT OT. Check vitamin B12. Folic acid level. A1c. Status: Acute (5) Rib fracture: incentive siprometry lidocaine patch prn if needed Status: Acute Additional A&P Information Alcohol intoxication: Alcohol level undetectable, started thiamine folic acid and CIWA protocol Troponin abnormality: 2225, without significant delta. No chest pain. He is a current everyday smoker. Does have risk factors for coronary disease, and may benefit from additional assessment towards coronary disease, stress testing on nonurgent basis once he is doing better. We will continue aspirin, statin. Check lipid profile. Urine tox screen was positive for amphetamine. Alk phos elevation: Check GGT. 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 Retractile testes: Continue follow-up with urology. He had marked improvement after initiation of tamsulosin by Dr. Yost Features of left epididymitis also noted in November of this year, plan was removal of testicle but patient wanted to hold off because his pain resolved He had received ceftriaxone in the ER, no further indication for abx Not complaining of any active genital pain at this time Full code DVT prophylaxis Lovenox planf or today: montior for alcohol withdrawal, pending MRI , additional testing for dermatomyositis, dispo planning Attestations Medical Necessity Statement*: MRI pending, additonal testing as noted above Coding Level of Care Code Acute Sales Planning Coordinator for Chg Fwd Diagnoses Alcohol intoxication F10.929 Arm weakness R29.898 Neck pain M54.2 Unable to ambulate R26.2 Rib fracture S22.39XA
--- NOTE | 2020-08-04 12:13 | PC.NURSE ---
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 However, this morning the patient's strength has improved. He was able to eat breakfast with minimal assistance. Thoughout the morning the patient appears less lethargic and is more conversational as well.
[2020-08-04] MEDS: enoxaparin 40 mg/0.4 mL Syringe SUBCUT (12:17)
[2020-08-04 14:55] LABS: Erythrocyte Sedimentation Rate 25 mm/hr (0-10)
[2020-08-04 15:16] LABS: C Reactive Protein 2.5 mg/L (0.0-4.9)
[2020-08-04 15:30] LABS: HIV 1 & 2 Antibody Non-Reactive (Non-Reactiv); HIV 1 & 2 Antigen Non-Reactive (Non-Reactiv)
[2020-08-04 18:47] LABS: Rapid Plasma Reagin Syphilis Nonreactive (Nonreactive)
[2020-08-04 18:49] LABS: Hepatitis A Antibody IgM Non-Reactive (Nonreactive); Hepatitis B Core AB, Total Non-Reactive (Nonreactive); Hepatitis B Surface Antigen Non-Reactive (Nonreactive); Hepatitis C Virus Antibody Non-Reactive (Nonreactive)
--- NOTE | 2020-08-04 22:48 | PC.NURSE ---
Patient resting in bed with eyes closed at this time. Patient is alert and orientated x4. Patient is able to make needs known and voice concerns. Call light within reach. Continue care.
[2020-08-04] MEDS: acetaminophen 325 mg Tablet 650 MG PO (23:27)
[2020-08-05] VITALS (13 sets, daily range): BP systolic 120–169; BP diastolic 87–113; PULSE 90–117; RESP 15–20; TEMP 36.3–36.9; O2SAT 92–95
--- NOTE | 2020-08-05 03:11 | PC.NURSE ---
Patient requested snack, nurse gave patient snack, and patient was able to eat snack and feed self without feeding assistance from staff, just set up help. Call light within reach. Continue care.
[2020-08-05 05:09] LABS: Alanine Aminotransferase 22 U/L (0-41); Albumin Level 3.7 g/dL (3.5-5.2); Alkaline Phosphatase 182 IU/L (40-130); Anion Gap 13.8 (5-19); Aspartate Amino Transferase 19 U/L (0-40); Blood Urea Nitrogen 14 mg/dL (6-20); Calcium 8.7 mg/dL (8.5-10.5); Carbon Dioxide 27 mmol/L (22-29); Chloride 101 mmol/L (98-107); Globulin 2.8 g/dL (1.3-4.6); Glomerular Filtration Rate 100.4 mL/min (90-130); Glucose 100 mg/dL (65-115); Osmolality Calculated 287 mOsm/kg (285-295); Potassium 3.8 mmol/L (3.5-5.1); Sodium 138 mmol/L (136-145); Total Bilirubin 0.3 mg/dL (0.15-1.2); Total Protein 6.5 g/dL (6.6-8.7)
[2020-08-05 05:21] LABS: Cortisol Random 1.45 ug/mL (2.47-19.5)
--- NOTE | 2020-08-05 05:58 | PC.NURSE ---
Uneventful shift: Patient rested in bed with eyes closed most of the night. Patient did have a few episodes of incontinence. New linens changed and more care performed. Call light within reach. Continue care.
[2020-08-05] MEDS: aspirin 81 mg EC Tablet PO (08:56)
[2020-08-05] MEDS: clopidogrel 75 mg Tablet PO (08:57)
[2020-08-05] MEDS: thiamine 100 mg Tablet PO (08:57)
[2020-08-05] MEDS: folic acid 1 mg Tablet PO (08:57)
[2020-08-05] MEDS: multivitamin therapeutic Tablet 1 TAB PO (08:57)
--- NOTE | 2020-08-05 09:39 | PC.CHAP ---
Pastoral Care Encounter/Spiritual Assessment Type of Contact [] Declined rn interventional visit [] Patient/Family/Request visit [] Outpatient visit [] Follow-up visit [] Physician referral [] Code/Alert [] Routine visit [] Staff referral [] Actively dying [] Patient sleeping [] Family support [] [] Out of room [] Palliative care [] [] Receiving care in room [] Pre-surgical visit [] Trauma [] Long length of stay [x] ICU visit [] Other: Relational/Emotional Strength [] Patient feels connected with others/family/visitors/staff [] Distress [] Loneliness/isolation [] Abandonment Spirituality of Patient [] Person of Lynette [] Attends Moravian of their Lynette [] Believes in Prayer [] Reads Bible or Shinto materials [] There are Spiritual issues to be addressed 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 [employer] Salesperson Interventions [x] Prayer [] Active listening [] Non-anxious presence [] Spiritual/emotional support [] Crisis/trauma care [] Spiritual counseling [] Bereavement support [] Provided bereavement packet [] Provided Bible/devotional materials [] Provided toy/stuffed animal, coloring book to patient or family member [] Provided Communion [] Anointing/[place] [] Salvation [x] Completed spiritual assessment [] Other: Impact on Illness or Injury [] Angry [] Fearful [] Anxious [] Often cries [] Exhaustion [] Unable to work [] Unable to attend gnosticism [] Unable to walk/stand [] Unable to read [] Unable to drive [] Unable to eat/drink [] Unable to sleep [] Unable to be with family [] Patient intubated [] Other: Summary Time spent with patient
--- NOTE | 2020-08-05 10:15 | MR_ITS ---
WS: [id number] MRI HEAD WITHOUT CONTRAST TECHNIQUE: Sagittal T1, T2 axial, T2 axial FLAIR, axial and coronal T1 images, axial susceptibility w eighted imaging, axial diffusion weighted images, and coronal T2 images were obtained. CLINICAL INFORMATION: Upper ext weak, numb, R>L COMPARISON: CT August 03, 2020 FINDINGS: Limited examination with fast acquisition propeller sequences only due to patient motion. Mild small vessel changes. Moderate parenchymal volume loss. No hydrocephalus. Incidental cavum septu m pellucidum and vergae. Normal posterior fossa. Normal vascular flow voids at the skull base. No ext ra-axial fluid collections. No evidence of mass or mass effect. Paranasal sinuses and mastoid air cadence ls well aerated. Mild mucosal thickening in the ethmoid air cells. No hemosiderin on susceptibly weighted images. Diffuse chronic thinning of the corpus callosum. Ree l optic chiasm and pituitary infundibulum. Moderate symmetric atrophy involving the temporal lobes an d hippocampal formations. MR/MR head wo con* [id number] IMPRESSION: 1. Limited examination due to patient motion. 2. Mild small vessel changes. Moderate parenchymal volume loss. 3. No hydrocephalus or mass effect. 4. No hemosiderin on susceptibly weighted images. 5. Moderate symmetric atrophy involving the temporal lobes and hippocampal for mations. 6. Mild mucosal thickening in the ethmoid air cells.
--- NOTE | 2020-08-05 10:15 | MR_ITS ---
WS: [id number] MRA HEAD TE [id number] venogramE: Axial 3-D TOF images obtained with axial images and axial, sagittal, and c oronal 2-D reformatted images. CLINICAL INFORMATION: upper extremities weak, numb, R>L COMPARISON: None. FINDINGS: Sagittal sinus is patent. Normal straight sinus and internal cerebral veins. Dominant right transvers e sinus. Normal variant hypoplastic left transverse sinus. This appears patent on the prior recent CT A. No evidence of dural sinus thrombosis. MR/[place] [id number] IMPRESSION: No evidence of dural sinus thrombosis.
--- NOTE | 2020-08-05 10:15 | MR_ITS ---
WS: [id number] MRI CERVICAL SPINE NONCONTRAST TECHNIQUE: Sagittal T1, T2 and STIR imaging. Axial T2, gradient, and fiesta imaging. CLINICAL INFORMATION: upper extremities weak, numb, R>L COMPARISON: None. FINDINGS: Exam somewhat limited due to patient motion. Straightening of the normal cervical lordosis. Cord signal appears normal considering patient motion. Moderate central canal stenosis C3-C5. C2-C3: Disc osteophyte complex with endplate ridging. Moderate central canal stenosis with indentatio n on cervical cord. Moderate bilateral bony foraminal narrowing. Mild facet arthropathy. C3-C4: Disc osteophyte complex with endplate ridging. Moderate central canal stenosis. Moderate to se kash bilateral bony foraminal narrowing left greater than right. Small left facet effusion. Moderate facet arthropathy. C4-C5: Disc osteophyte complex eccentric to the left with moderate central canal stenosis and slight contact of the cervical cord. Severe left greater than right bony foraminal narrowing. Moderate facet arthropathy. C5-C6: Disc osteophyte complex with endplate ridging. Slight retrolisthesis C5 on C6. Mild to moderat e central canal stenosis and slight contact of the cervical cord. Severe left greater than right bony foraminal narrowing. C6-C7: Mild disc osteophytic ridging. Severe left and moderate right bony foraminal narrowing. Spinal canal is patent. C7-T1: Mild bilateral bony foraminal narrowing. Spinal canal is patent Visualized brain stem structures: Normal. Prevertebral soft tissues: Normal. MR/MR cervical spin wo con* [id number] IMPRESSION: 1. Images somewhat degraded due to patient motion. 2. Straightening of the normal cervical lordosis with moderate central canal s tenosis at C3-C5 with slight contact of the cervical cord. Spinal cord signal a ppears normal considering patient motion. 3. Multilevel moderate to severe bony foraminal narrowing described above wors e at bilateral C3-4, bilateral C4-5 worse in the left, bilateral C5-C6 left gre ater than right, and left C6-7. 4. Edema in the articulating left C3-4 facets consistent with synovitis/degene rative change. 5. No other significant findings.
--- NOTE | 2020-08-05 10:16 | PC.NURSE ---
MRI notified nurse that patient was experiencing anxiety before procedure. Dr. Martinez updated. Verbal order received for 2 mg ativan IVP ONCE. Nurse to continue to monitor.
[2020-08-05] MEDS: LORazepam 2 mg/mL INJ 1 mL IVP (10:26)
[2020-08-05] MEDS: enoxaparin 40 mg/0.4 mL Syringe SUBCUT (13:17)
--- NOTE | 2020-08-05 14:00 | PC.NURSE ---
Patient up to chair with 2 assist and gait belt. tolerating activity well. Nurse to continue to monitor.
--- NOTE | 2020-08-05 15:57 | P.PN_ITS ---
Subjective Subjective: Interval history: MRI taken this mornng, results pending, morning cortisol level returned low, upper and lower extremty weakness unchanged overall Medications: Reviewed: Yes Vitals/I&O/Wt Last Vital Signs Temp 97.9 F 08/05/20 08:00 Pulse 94 08/05/20 08:00 Resp 20 H 08/05/20 08:00 BP 146/94 08/05/20 08:00 Pulse Ox 94 08/05/20 08:00 08/05/20 08/05/20 08/05/20 06:59 14:59 22:59 Intake Total 270 / 1120 1530 / 1530 Output Total 475 / 875 Balance -205 / 245 1530 / 1530 Physical Exam Narrative: EXAM NARRATIVE: GEN: Awake, alert and oriented, no acute distress CVS: S1S2 N RS: CTA B/L Abd: Soft, nt/nd , bs+ 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 protocol for alcohol withdrawal Awake, alert and orinetd at this time Urine tox screen is positive for marijuana but also amphetamines. mild clonus persisting, reports last dose Seroquel was yesterday. Thiamine, folic acid supplementation, multivitamin. Status: Acute (2) Arm weakness: Reports weakness in bilateral arms, and also right leg, apepars more proximal weakness CT head rather unremarkable with a normal anatomical variant, CT C-spine with degenerative changes noted with spondylosis deformans and large anterior claw syndesmophytes C4, C5, C6 and 7, left facet arthrosis C3/C4. Mild degenerative disc disease C5-C6, with mild posterior disc bulge osteophyte complex not resulting in significant central canal stenosis. Bilateral neuroforaminal stenosis, right greater than left C5/C6. No significant disc protrusion. No severe spinal canal stenosis. Incidentally noted dysplastic appearing 1-3 right-sided ribs. I am not sure whether this is enough to explain severity of his symptoms, and he also reports leg weakness as well. CTa head and neck withotu acute occlusions, acute rib fractures noted B/L, add incentive spirometry Appears to have more proximal weakness and scaly red rash over face and neck folds, which may be seborrheic dermatitis vs photosensitivity,However given proximal muscle weakness therefore also concerned about possibility of dermatomyositis. CK was normal. Check ESR, CRP, GIANNI rheumatology screening, HIV screening, acute hepatitis screen, RPR screen additionally to rule out tertiary syphilis. We will discuss with rheumatology tomorrow if patient may additionally benefit from muscle biopsy if fails to improve. Status: Acute (3) Neck pain: As above. Status: Acute (4) Unable to ambulate: Complains of weakness in lower extremities, recurrent falls. Also complains of sharp pain from the calluses on the balls of his feet and large toes which are poking him like pains . Does not have any ulcers on his feet. Monitor and treat withdrawal from alcohol or other substance. Discourage self-m edication of symptoms with alcohol or other medications not intended for the purpose. May benefit from follow-up with pain clinic. PT OT. Check vitamin B12. Folic acid level. A1c. Status: Acute (5) Rib fracture: incentive siprometry lidocaine patch prn if needed Status: Acute Additional A&P Information Alcohol intoxication: Alcohol level undetectable, started thiamine folic acid and CIWA protocol Troponin abnormality: 2224-25, without significant delta. No chest pain. He is a current everyday smoker. Does have risk factors for coronary disease, and may benefit from additional assessment towards coronary disease, stress testing on nonurgent basis once he is doing better. We will continue aspirin, statin. Miriam hanley lipid profile. Urine tox screen was positive for amphetamine. Alk phos elevation: Check GGT. 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 Retractile testes: Continue follow-up with urology. He had marked improvement after initiation of tamsulosin by Dr. Yost Features of left epididymitis also noted in November of this year, plan was removal of testicle but patient wanted to hold off because his pain resolved He had received ceftriaxone in the ER, no further indication for abx Not complaining of any active genital pain at this time Full code DVT prophylaxis Lovenox planf or today:await MRI imaging results, ACTH stimulation test given low cortisol level to evalute for possible adrenal insufficiency Attestations Medical Necessity Statement*: ACTH stimulation test, pending MRI results Coding Level of Care Code Acute Branch Office Administrator for Chg Fwd Diagnoses Alcohol intoxication F10.929 Arm weakness R29.898 Neck pain M54.2 Unable to ambulate R26.2 Rib fracture S22.39XA
--- NOTE | 2020-08-05 16:36 | PC.RESP ---
Smoking Cessation and Pulmonary Rehab packet sent to patient.
--- NOTE | 2020-08-05 16:44 | PC.NURSE ---
Verbal permission from patient to update daughter, Alaina Gillette on patient condition. .
--- NOTE | 2020-08-05 16:54 | PC.NURSE ---
Report called to Jenny on Med surg. No further questions. Family notified of transfer.
[2020-08-06] VITALS (8 sets, daily range): BP systolic 140–180; BP diastolic 73–96; PULSE 89–106; RESP 16–18; TEMP 36.7–37.3; O2SAT 93–97
[2020-08-06 05:40] LABS: Alanine Aminotransferase 28 U/L (0-41); Albumin Level 3.8 g/dL (3.5-5.2); Alkaline Phosphatase 188 IU/L (40-130); Anion Gap 10.9 (5-19); Aspartate Amino Transferase 25 U/L (0-40); Blood Urea Nitrogen 13 mg/dL (6-20); Carbon Dioxide 28 mmol/L (22-29); Chloride 102 mmol/L (98-107); Globulin 2.6 g/dL (1.3-4.6); Glomerular Filtration Rate 139.9 mL/min (90-130); Glucose 96 mg/dL (65-115); Osmolality Calculated 284 mOsm/kg (285-295); Potassium 3.9 mmol/L (3.5-5.1); Sodium 137 mmol/L (136-145); Total Bilirubin 0.4 mg/dL (0.15-1.2); Total Protein 6.4 g/dL (6.6-8.7)
[2020-08-06] MEDS: cosyntropin 0.25 mg SDV IVP (06:10)
[2020-08-06 06:14] LABS: Cosyntropin Baseline 4.58 mcg/dL
[2020-08-06 07:22] LABS: Cosyntropin 30 Minute 24.84 mcg/dL
[2020-08-06] MEDS: folic acid 1 mg Tablet PO (08:25)
[2020-08-06] MEDS: thiamine 100 mg Tablet PO (08:25)
[2020-08-06] MEDS: clopidogrel 75 mg Tablet PO (08:25)
[2020-08-06] MEDS: multivitamin therapeutic Tablet 1 TAB PO (08:25)
[2020-08-06] MEDS: aspirin 81 mg EC Tablet PO (08:25)
[2020-08-06 11:38] LABS: Cosyntropin 1 Hour 28.99 mcg/dL
[2020-08-06] MEDS: enoxaparin 40 mg/0.4 mL Syringe SUBCUT (12:57)
--- NOTE | 2020-08-06 13:36 | PM.PN ---
Subjective Subjective: Interval history: Patient continues to complain of significant weakness. MRI of the spine were performed, suboptimal images due to patient motion, however did not show any gross mass-effect. Degenerative changes of the C-spine were noted. ACTH stimulation test did not reveal adrenal insufficiency. ESR very mildly elevated at 25. CRP normal at 2.5. GIANNI panel pending. 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 Improved. Status: Acute (2) Arm weakness: Reports weakness in bilateral arms, and also right leg, apepars more proximal weakness CT head rather unremarkable with a normal anatomical variant, CT C-spine with degenerative changes noted with spondylosis deformans and large anterior claw syndesmophytes C4, C5, C6 and 7, left facet arthrosis C3/C4. Mild degenerative disc disease C5-C6, with mild posterior disc bulge osteophyte complex not resulting in significant central canal stenosis. Bilateral neuroforaminal stenosis, right greater than left C5/C6. No significant disc protrusion. No severe spinal canal stenosis. Incidentally noted dysplastic appearing 1-3 right-sided ribs. MRI performed yesterday also with similar findings of degenerative disease of the cervical spine spine. MRI of the brain with moderate symmetric atrophy involving the temporal lobes and hippocampal formations. I am not sure whether this is enough to explain severity of his symptoms, and he also reports leg weakness as well. Will provide outpatient referral for neurology for further assessment. Given scaly violaceous rash over the face, initially was concerned about dermatomyositis as well as possible etiology, however given negative CRP, normal CK, mildly elevated ESR this appears to be less likely. GIANNI panel remains pending at this time. HIV, RPR and hepatitis screens returned negative. Patient is participating with physical therapy, OT added Status: Acute (3) Neck pain: As above. Degenerative changes noted on MRI of the spine As needed [place] and lidocaine patch locally to the C-spine Status: Acute (4) Unable to ambulate: Complains of weakness in lower extremities, recurrent falls. Also complains of sharp pain from the calluses on the balls of his feet and large toes which are poking him like pains . Does not have any ulcers on his feet. Monitor and treat withdrawal from alcohol or other substance. Discourage self-medication of symptoms with alcohol or other medications not intended for the purpose. May benefit from follow-up with pain clinic. PT OT. Check vitamin B12. Folic acid level. A1c. Status: Acute (5) Rib fracture: incentive siprometry lidocaine patch prn if needed Status: Acute Additional A&P Information Alcohol intoxication: Alcohol level undetectable, started thiamine folic acid and CIWA protocol Troponin abnormality: 22-24-25, without significant delta. No chest pain. He is a current everyday smoker. Does have risk factors for coronary disease, and may benefit from additional assessment towards coronary disease, stress testing on nonurgent basis once he is doing better. We will continue aspirin, statin. . Urine tox screen was positive for amphetamine. Retractile testes: Continue follow-up with urology. He had marked improvement after initiation of tamsulosin by Dr. Yost Full code DVT prophylaxis Lovenox Dispo: SNF placement given significant deconditioning, recurrent falls . 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
[2020-08-06 13:43] LABS: CENTROMERE B ANTIBODY <1.0 NEG AI (<1.0 NEG); JO-1 ANTIBODY <1.0 NEG AI (<1.0 NEG); RNP ANTIBODY <1.0 NEG AI (<1.0 NEG); SCL-70 ANTIBODY <1.0 NEG AI (<1.0 NEG); SJOGREN'S ANTIBODY (SS-A) <1.0 NEG AI (<1.0 NEG); SM ANTIBODY <1.0 NEG AI (<1.0 NEG); SS-B <1.0 NEG AI (<1.0 NEG)
--- NOTE | 2020-08-06 14:03 | PC.NURSE ---
Patient gave permission for this song writer to talk with his sister Vaishnavi Burgess at this time [phone]. Sister updated at this time.
[2020-08-06] MEDS: HYDROcodone-acetaminophen 5-325 mg Tablet 1 TAB PO ×2 (15:46→20:30)
--- NOTE | 2020-08-06 17:08 | PC.SOCIAL ---
IMM Update Pg. 2 of IMM updated and reviewed with patient who verbalized understanding. Copy provided.
[2020-08-06] MEDS: ciprofloxacin 0.3% Op Soln 2.5 mL Btl 1 DROP EYE-BOTH ×2 (17:45→20:29)
[2020-08-06 19:14] LABS: SARS Covid-2 Antigen Negative (Negative)
[2020-08-06] MEDS: lidocaine 5% Patch 1 PATCH TOPICAL (20:29)
[2020-08-06] MEDS: tamsulosin 0.4 mg Capsule PO (20:30)
[2020-08-07] MEDS: HYDROcodone-acetaminophen 5-325 mg Tablet 1 TAB PO ×2 (02:31→08:32)
[2020-08-07 03:00] VITALS: BP 148/87; PULSE 97; RESP 18; TEMP 36.9; O2SAT 95
[2020-08-07 07:00] VITALS: BP 152/92; PULSE 107; RESP 16; TEMP 36.9; O2SAT 94
[2020-08-07] MEDS: ciprofloxacin 0.3% Op Soln 2.5 mL Btl 1 DROP EYE-BOTH ×4 (08:32→22:52)
[2020-08-07] MEDS: lidocaine 5% Patch 1 PATCH TOPICAL ×2 (08:33→22:44)
[2020-08-07] MEDS: folic acid 1 mg Tablet PO (08:33)
[2020-08-07] MEDS: aspirin 81 mg EC Tablet PO (08:33)
[2020-08-07] MEDS: multivitamin therapeutic Tablet 1 TAB PO (08:33)
[2020-08-07] MEDS: thiamine 100 mg Tablet PO (08:33)
[2020-08-07 10:50] VITALS: BP 131/85; PULSE 92; RESP 18; TEMP 36.6; O2SAT 95
--- NOTE | 2020-08-07 11:50 | PM.PN ---
Subjective Subjective: Interval history: Continues to complain of upper extremity weakness, not significantly changed since previous admission, also complains of numbness in the right upper extremity which he states has been going on for the past several months. 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 Awake, alert and oriented at this time Urine tox screen is positive for marijuana but also amphetamines. This is currently resolved Status: Acute (2) Arm weakness: Reports weakness in bilateral arms, and also right leg, apepars more proximal weakness CT head rather unremarkable with a normal anatomical variant, CT C-spine with degenerative changes noted with spondylosis deformans and large anterior claw syndesmophytes C4, C5, C6 and 7, left facet arthrosis C3/C4. Mild degenerative disc disease C5-C6, with mild posterior disc bulge osteophyte complex not resulting in significant central canal stenosis. Bilateral neuroforaminal stenosis, right greater than left C5/C6. No significant disc protrusion. No severe spinal canal stenosis. Incidentally noted dysplastic appearing 1-3 right-sided ribs. MRI performed 08/06 also with similar findings of degenerative disease of the cervical spine spine and likely some posttraumatic changes from multiple falls. MRI of the brain with moderate symmetric atrophy involving the temporal lobes and hippocampal formations, which may be related to alcohol use. Continue participation with PT OT. Use soft cervical collar. Will make follow-up appointments with spine surgeon Dr. Young upon discharge to assess for any potential need for surgery down the line. Patient does continue to complain of upper arm weakness and numbness, however this is pre-existing at least dating back the last 6 to 8 weeks. Given scaly violaceous rash over the face, initially was concerned about dermatomyositis as well as possible etiology, however given negative CRP, normal CK, mildly elevated ESR this appears to be less likely. Vasculitic/connective tissue disorder screen returned negative however pending for still GIANNI and antidsDNA.. HIV, RPR and hepatitis screens returned negative. Negative B12 folate TSH within normal range. Low normal random cortisol however ACTH stimulation test without evidence of adrenal insufficiency Status: Acute (3) Neck pain: As above. Degenerative changes noted on MRI of the spine As needed [place] and lidocaine patch locally to the C-spine Status: Acute (4) Unable to ambulate: Complains of weakness in lower extremities, recurrent falls. Also complains of sharp pain from the calluses on the balls of his feet and large toes which are poking him like pains . Does not have any ulcers on his feet. Status: Acute (5) Rib fracture: incentive siprometry lidocaine patch prn if needed Status: Acute (6) Conjunctivitis: Erythema bilateral eyes, right greater than left well with ciprofloxacin drops and refresh eyedrops were added with significant improvement Status: Acute Additional A&P Information Alcohol intoxication: This is resolved, continue thiamine and folic acid Troponin abnormality: 22-24-25, without significant delta. No chest pain. Retractile testes: Continue follow-up with urology as outpatient, Flomax has been resumed Full code DVT prophylaxis Lovenox Dispo: SNF placement given significant deconditioning, recurrent falls . 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
[2020-08-07 11:58] LABS: COMPLEMENT, TOTAL (CH50) >60 U/mL (31-60)
[2020-08-07] MEDS: TRAMadol 50 mg Tablet PO (12:25)
[2020-08-07] MEDS: enoxaparin 40 mg/0.4 mL Syringe SUBCUT (12:25)
[2020-08-07 12:57] LABS: COMPLEMENT COMPONENT C3C 144 mg/dL (82-185); COMPLEMENT COMPONENT C4C 39 mg/dL (15-53)
[2020-08-07] MEDS: HYDROcodone-acetaminophen 5-325 mg Tablet 2 TAB PO ×3 (13:52→22:43)
[2020-08-07 13:57] LABS: THYROID PEROXIDASE ANTIBODIES <1 IU/mL (<9)
[2020-08-07 15:00] VITALS: BP 143/88; PULSE 102; RESP 18; TEMP 37.2; O2SAT 96
--- NOTE | 2020-08-07 16:39 | PC.NURSE ---
Soft Cervical Collar applied at this time. Patient states, The emergency room doctor says I have to wear this collar the rest of my life. Explained to patient that it is for comfort only that he does not have to wear it all the time. Patient verbalized understanding.
[2020-08-07 19:00] VITALS: BP 143/83; PULSE 95; RESP 20; TEMP 36.9; O2SAT 98
--- NOTE | 2020-08-07 19:20 | PC.NURSE ---
Report to Gr[facility] DE JES[facility]
[2020-08-08] VITALS: BP 142/85; PULSE 87; RESP 19; TEMP 37.1; O2SAT 95
[2020-08-08 04:00] VITALS: BP 164/92; PULSE 85; RESP 20; TEMP 37.3; O2SAT 95
[2020-08-08] MEDS: HYDROcodone-acetaminophen 5-325 mg Tablet 2 TAB PO ×5 (04:07→22:44)
[2020-08-08] MEDS: lanolin oint 7 gm 1 APPLIC TOPICAL (04:21)
[2020-08-08 07:44] VITALS: BP 130/81; PULSE 90; RESP 17; TEMP 36.6; O2SAT 94
[2020-08-08] MEDS: aspirin 81 mg EC Tablet PO (08:29)
--- NOTE | 2020-08-08 08:29 | PC.NURSE ---
patient reports pain to neck and all over PRN norco given, see MAR for further details.
[2020-08-08] MEDS: artificial tears Op Soln 15 mL Btl 1 DROP EYE-BOTH (08:30)
[2020-08-08] MEDS: thiamine 100 mg Tablet PO (08:30)
[2020-08-08] MEDS: folic acid 1 mg Tablet PO (08:30)
[2020-08-08] MEDS: multivitamin therapeutic Tablet 1 TAB PO (08:30)
--- NOTE | 2020-08-08 10:00 | PC.NURSE ---
Patient resting in chair with call light in reach, no distress noted.
[2020-08-08] MEDS: ciprofloxacin 0.3% Op Soln 2.5 mL Btl 1 DROP EYE-BOTH ×4 (10:17→22:44)
--- NOTE | 2020-08-08 10:51 | PC.SOCIAL ---
IMM Update Pg. 2 of IMM updated and reviewed with patient who verbalized understanding. Copy provided.
[2020-08-08 11:09] VITALS: BP 138/83; PULSE 86; RESP 17; TEMP 37; O2SAT 90
[2020-08-08] MEDS: enoxaparin 40 mg/0.4 mL Syringe SUBCUT (12:12)
--- NOTE | 2020-08-08 12:13 | PC.NURSE ---
Patient reports pain to neck and all over prn NORCO given per doctors orders, see MAR for further details.
--- NOTE | 2020-08-08 13:00 | PC.NURSE ---
Patient requested to go back to bed, patient has been up to chair since therapy this morning, assisted back to bed, call light in reach, pillows in place to reduce pressure, side rails up X2 and padded with pillows, denies further needs.
[2020-08-08 14:14] LABS: ANA SCREEN, IFA NEGATIVE (NEGATIVE)
[2020-08-08 15:24] VITALS: BP 160/97; PULSE 101; RESP 17; TEMP 36.7; O2SAT 97
[2020-08-08 19:10] VITALS: BP 146/82; PULSE 94; RESP 17; TEMP 36.9; O2SAT 97
--- NOTE | 2020-08-08 22:13 | P.PN_ITS ---
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 Awake, alert and oriented at this time Urine tox screen is positive for marijuana but also amphetamines. This is currently resolved Status: Acute (2) Arm weakness: Reports weakness in bilateral arms, and also right leg, apepars more proximal weakness CT head rather unremarkable with a normal anatomical variant, CT C-spine with degenerative changes noted with spondylosis deformans and large anterior claw syndesmophytes C4, C5, C6 and 7, left facet arthrosis C3/C4. Mild degenerative disc disease C5-C6, with mild posterior disc bulge osteophyte complex not resulting in significant central canal stenosis. Bilateral neuroforaminal stenosis, right greater than left C5/C6. No significant disc protrusion. No severe spinal canal stenosis. Incidentally noted dysplastic appearing 1-3 right-sided ribs. MRI performed 08/06 also with similar findings of degenerative disease of the cervical spine spine and likely some posttraumatic changes from multiple falls. MRI of the brain with moderate symmetric atrophy involving the temporal lobes and hippocampal formations, which may be related to alcohol use. Continue participation with PT OT. Use soft cervical collar. Will make follow-up appointments with spine surgeon Dr. Young upon discharge to assess for any potential need for surgery down the line. Patient does continue to complain of upper arm weakness and numbness, however this is pre-existing at least dating back the last 6 to 8 weeks. Given scaly violaceous rash over the face, initially was concerned about dermatomyositis as well as possible etiology, however given negative CRP, normal CK, mildly elevated ESR this appears to be less likely. Vasculitic/connective tissue disorder screen returned negative however pending for still GIANNI and antidsDNA.. HIV, RPR and hepatitis screens returned negative. Negative B12 folate TSH within normal range. Low normal random cortisol however ACTH stimulation test without evidence of adrenal insufficiency Status: Acute (3) Neck pain: As above. Degenerative changes noted on MRI of the spine As needed [place] and lidocaine patch locally to the C-spine Status: Acute (4) Unable to ambulate: Complains of weakness in lower extremities, recurrent falls. Also complains of sharp pain from the calluses on the balls of his feet and large toes which are poking him like pains . Does not have any ulcers on his feet. Status: Acute (5) Rib fracture: incentive siprometry lidocaine patch prn if needed Status: Acute (6) Conjunctivitis: Erythema bilateral eyes, right greater than left well with ciprofloxacin drops and refresh eyedrops were added with significant improvement Status: Acute Additional A&P Information Alcohol intoxication: This is resolved, continue thiamine and folic acid Troponin abnormality: 22-24-25, without significant delta. No chest pain. Retractile testes: Continue follow-up with urology as outpatient, Flomax has been resumed Full code DVT prophylaxis Lovenox Dispo: SNF placement given significant deconditioning, recurrent falls . ongoing need for PT/OT Attestations Medical Necessity Statement*: Pending placement at facility Coding Level of Care Code Acute Clinical Staff Anesthesiologist for Chg Fwd Diagnoses Alcohol intoxication F10.929 Arm weakness R29.898 Neck pain M54.2 Unable to ambulate R26.2 Rib fracture S22.39XA Conjunctivitis H10.9
[2020-08-08] MEDS: lidocaine 5% Patch 1 PATCH TOPICAL (22:20)
[2020-08-08] MEDS: diphenhydrAMINE 50 mg Capsule PO (22:44)
[2020-08-08 23:18] LABS: DNA AB (DS) CRITHIDIA,IFA NEGATIVE (NEGATIVE)
[2020-08-09] VITALS (7 sets, daily range): BP systolic 113–160; BP diastolic 68–89; PULSE 74–97; RESP 13–20; TEMP 36.5–37; O2SAT 93–98
[2020-08-09] MEDS: HYDROcodone-acetaminophen 5-325 mg Tablet 2 TAB PO ×4 (08:09→21:33)
[2020-08-09] MEDS: folic acid 1 mg Tablet PO (08:10)
[2020-08-09] MEDS: artificial tears Op Soln 15 mL Btl 1 DROP EYE-BOTH (08:10)
[2020-08-09] MEDS: thiamine 100 mg Tablet PO (08:10)
[2020-08-09] MEDS: aspirin 81 mg EC Tablet PO (08:10)
[2020-08-09] MEDS: duloxetine 30 mg Capsule PO (08:10)
[2020-08-09] MEDS: multivitamin therapeutic Tablet 1 TAB PO (08:10)
[2020-08-09] MEDS: ciprofloxacin 0.3% Op Soln 2.5 mL Btl 1 DROP EYE-BOTH ×4 (08:11→21:39)
[2020-08-09] MEDS: enoxaparin 40 mg/0.4 mL Syringe SUBCUT (10:58)
--- NOTE | 2020-08-09 17:15 | P.PN_ITS ---
Subjective Subjective: Interval history: No acute events today, reports feeling extremely depressed because he is worried about his young kids at home. It appears he has a strained relationship with his ex- to continue to reside together and that appears to be adding to his anxiety. 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 Awake, alert and oriented at this time Urine tox screen is positive for marijuana but also amphetamines. This is currently resolved Status: Acute (2) Arm weakness: Reports weakness in bilateral arms, and also right leg, apepars more proximal weakness CT head rather unremarkable with a normal anatomical variant, CT C-spine with degenerative changes noted with spondylosis deformans and large anterior claw syndesmophytes C4, C5, C6 and 7, left facet arthrosis C3/C4. Mild degenerative disc disease C5-C6, with mild posterior disc bulge osteophyte complex not resulting in significant central canal stenosis. Bilateral neuroforaminal stenosis, right greater than left C5/C6. No significant disc protrusion. No severe spinal canal stenosis. Incidentally noted dysplastic appearing 1-3 right-sided ribs. MRI performed 08/06 also with similar findings of degenerative disease of the cervical spine spine and likely some posttraumatic changes from multiple falls. MRI of the brain with moderate symmetric atrophy involving the temporal lobes and hippocampal formations, which may be related to alcohol use. Continue participation with PT OT. Use soft cervical collar. Will make follow-up appointments with spine surgeon Dr. Young upon discharge to assess for any potential need for surgery down the line. Patient does continue to complain of upper arm weakness and numbness, however this is pre-existing at least dating back the last 6 to 8 weeks. Given scaly violaceous rash over the face, initially was concerned about dermatomyositis as well as possible etiology, however given negative CRP, normal CK, mildly elevated ESR this appears to be less likely. Vasculitic/connective tissue disorder screen returned negative however pending for still GIANNI and antidsDNA.. HIV, RPR and hepatitis screens returned negative. Negative B12 folate TSH within normal range. Low normal random cortisol however ACTH stimulation test without evidence of adrenal insufficiency Status: Acute (3) Neck pain: As above. Degenerative changes noted on MRI of the spine As needed [place] and lidocaine patch locally to the C-spine Status: Acute (4) Unable to ambulate: Complains of weakness in lower extremities, recurrent falls. Also complains of sharp pain from the calluses on the balls of his feet and large toes which are poking him like pains . Does not have any ulcers on his feet. Status: Acute (5) Rib fracture: incentive siprometry lidocaine patch prn if needed Status: Acute (6) Conjunctivitis: Erythema bilateral eyes, right greater than left well with ciprofloxacin drops and refresh eyedrops were added with significant improvement Status: Acute (7) Depression: No current suicidal ideation or intention. Depression mostly related to his home situation, taking care of his young kids etc. Add Cymbalta to his existing regimen to help with depression, which will additionally help with pain control and neuropathic pain Status: Acute Additional A&P Information Alcohol intoxication: This is resolved, continue thiamine and folic acid Troponin abnormality: 22-25, without significant delta. No chest pain. Retractile testes: Continue follow-up with urology as outpatient, Flomax has been resumed Full code DVT prophylaxis Lovenox Dispo: SNF placement given significant deconditioning, recurrent falls . ongoing need for PT/OT . Patient has been declined for placement at several facilities that have been contacted. If SNF placement unlikely to happen, alternate plan for discharge would be home health services with follow-up with Dr. Young and possibly neurology in the office Attestations Medical Necessity Statement*: Patient has severe deconditioning and proximal muscle weakness resulting in recurrent falls, would benefit from SNF placement, attempts at placement are ongoing. 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
[2020-08-09] MEDS: tamsulosin 0.4 mg Capsule PO (21:39)
[2020-08-09] MEDS: lidocaine 5% Patch 1 PATCH TOPICAL (21:39)
[2020-08-10] VITALS (7 sets, daily range): BP systolic 123–137; BP diastolic 70–86; PULSE 78–97; RESP 17–20; TEMP 36.6–36.8; O2SAT 92–95
[2020-08-10] MEDS: HYDROcodone-acetaminophen 5-325 mg Tablet 2 TAB PO ×2 (01:52→08:50)
--- NOTE | 2020-08-10 05:53 | PC.NURSE ---
Patient has rested well requiring pain medication Q4H as prescribed PRN by doctor. Patient's output is good. Patient was able to use the urinal with minimal assist. Patient has refused for this nurse to check brief to ensure it is dry. Patient says that it is getting harder to use his left hand and unable to use his right hand at this time. Vitals WNL.
[2020-08-10] MEDS: multivitamin therapeutic Tablet 1 TAB PO (08:49)
[2020-08-10] MEDS: aspirin 81 mg EC Tablet PO (08:49)
[2020-08-10] MEDS: folic acid 1 mg Tablet PO (08:49)
[2020-08-10] MEDS: thiamine 100 mg Tablet PO (08:49)
[2020-08-10] MEDS: duloxetine 30 mg Capsule PO (08:50)
[2020-08-10] MEDS: ciprofloxacin 0.3% Op Soln 2.5 mL Btl 1 DROP EYE-BOTH ×4 (08:53→21:03)
[2020-08-10] MEDS: enoxaparin 40 mg/0.4 mL Syringe SUBCUT (10:31)
--- NOTE | 2020-08-10 11:39 | PC.SOCIAL ---
IMM Updated Updated pt on Pg 2 IMM. No questions voiced. Provided pt a copy. Signed, dated, & timed copy in chart.
--- NOTE | 2020-08-10 13:00 | PM.PN ---
Subjective Subjective: Interval history: Lower extremity strength is significantly improved today. Patient is able to flex at the hip, leg lifts leg off the bed greater than 90 degrees. Upper extremity strength also appears to be improving, able to move both upper extremities beyond level of shoulder. Complains of restless leg, intermittent jerking movements of the left leg. Complaining also of pain in the right first interphalangeal joint because of which he states he was unable to bear weight on his right foot. States today that he has a past history of gout and used to be on allopurinol daily which he stopped as he has not had a flare in a long time. Medications: Reviewed: Yes Vitals/I&O/Wt Last Vital Signs Temp 98.2 F 08/10/20 11:18 Pulse 84 08/10/20 11:18 Resp 18 08/10/20 11:18 BP 127/72 08/10/20 11:18 Pulse Ox 93 08/10/20 11:18 08/09/20 08/10/20 08/10/20 22:59 06:59 14:59 Intake Total 600 / 1440 480 / 1920 360 / 360 Output Total 300 / 675 600 / 1275 475 / 475 Balance 300 / 765 -120 / 645 -115 / -115 Physical Exam Narrative: EXAM NARRATIVE: GEN: Awake, alert and oriented, no acute distress CVS: S1S2 N RS: CTA B/L Abd: Soft, nt/nd , bs+ Data : 08/04/20 05:10 08/06/20 04:58 Micro: Microbiology 08/04/20 13:30 Blood Culture - Final Blood NO GROWTH AFTER 5 DAYS 08/04/20 13:36 Blood Culture - Final Blood NO GROWTH AFTER 5 DAYS A&P Assessment and plan (1) Alcohol intoxication: This is currently resolved Status: Acute (2) Arm weakness: Reports weakness in bilateral arms, and also right leg, apepars more proximal weakness His lower extremity strength does appear to be improved today, he is now able to lift both his legs off the bed, flexes his legs at the hip greater than 90 degrees. Intermittent jerking movements noted of left lower extremity, likely related to restless legs. Upper extremity strength also mildly improved since admission. When first seen his right-sided cloth colorer was significantly weaker than the left one, this is now appearing to improve, though still asymmetric. Patient is also able to move both arms above the level of his shoulder today which is an improvement over the last exam. Paresthesias still persisting over the right arm MRI of the brain with moderate symmetric atrophy involving the temporal lobes and hippocampal formations, which may be related to alcohol use. This does not appear to explain his muscle weakness and paresthesias Continue participation with PT OT. He appears to be improving with physical therapy. Use soft cervical collar. Will make follow-up appointments with spine surgeon Dr. Young upon discharge to assess for any potential need for surgery down the line for spinal stenosis. If patient is still in the hospital on Wednesday we will try to get this assessment as an inpatient. Given scaly violaceous rash over the face, initially was concerned about dermatomyositis as well as possible etiology, however given negative CRP, normal CK, mildly elevated ESR this appears to be less likely. Vasculitic/connective tissue disorder screen returned negative. HIV, RPR and hepatitis screens returned negative. B12 folate TSH within normal range. Low normal random cortisol however ACTH stimulation test without evidence of adrenal insufficiency. Status: Acute (3) Neck pain: As above. Degenerative changes noted on MRI of the spine along with spinal stenosis As needed [place] and lidocaine patch locally to the C-spine Status: Acute (4) Unable to ambulate: Complains of weakness in lower extremities, recurrent falls. Continue participation with PT OT Status: Acute (5) Rib fracture: From recurrent falls incentive siprometry lidocaine patch prn if needed Add albuterol nebulization as needed Status: Acute (6) Conjunctivitis: Erythema bilateral eyes, right greater than left well with ciprofloxacin drops and refresh eyedrops were added with significant improvement Status: Acute (7) Depression: No current suicidal ideation or intention. Depression mostly related to his home situation, taking care of his young kids etc. Added Cymbalta to his existing regimen to help with depression, which will additionally help with pain control and neuropathic pain. Complains of insomnia, will add xanax at night time Status: Acute (8) Cervical stenosis of spinal canal: Status: Acute (9) Degenerative arthritis of spine: Status: Acute Additional A&P Information Alcohol intoxication: This is resolved, continue thiamine and folic acid Troponin abnormality: 22-24-25, without significant delta. No chest pain. Retractile testes: Continue follow-up with urology as outpatient, Flomax has been resumed Full code DVT prophylaxis Lovenox Dispo: SNF placement given significant deconditioning, recurrent falls , muscle weakness and paresthesias likely related to cervical stenosis. ongoing need for PT/OT . Patient has been declined for placement at several facilities that have been contacted. If SNF placement unlikely to happen, alternate plan for discharge would be home health services with follow-up with Dr. Young and possibly neurology in the office. Attestations Medical Necessity Statement*: Pending placement at SNF, patient would benefit from skilled therapy given significant muscle weakness and paresthesias, recurrent falls at home resulting in multiple rib fractures and degenerative spinal changes Coding Level of Care Code Acute Transportation Mechanic for Chg Fwd Diagnoses Alcohol intoxication F10.929 Arm weakness R29.898 Neck pain M54.2 Unable to ambulate R26.2 Rib fracture S22.39XA Conjunctivitis H10.9 Depression F32.9 Cervical stenosis of spinal canal M48.02 Degenerative arthritis of spine M47.9
[2020-08-10] MEDS: TRAMadol 50 mg Tablet PO (17:49)
[2020-08-10] MEDS: cyclobenzaprine 10 mg Tablet 5 MG PO (17:50)
[2020-08-10] MEDS: ALPRAZolam 0.5 mg Tablet PO (21:04)
[2020-08-10] MEDS: ibuprofen 200 mg Tablet 400 MG PO (21:04)
[2020-08-10] MEDS: tamsulosin 0.4 mg Capsule PO (21:04)
[2020-08-10] MEDS: lidocaine 5% Patch 1 PATCH TOPICAL (21:05)
[2020-08-11] VITALS (8 sets, daily range): BP systolic 109–135; BP diastolic 74–87; PULSE 77–99; RESP 16–18; TEMP 36.4–37.4; O2SAT 92–96
--- NOTE | 2020-08-11 04:00 | XRR_ITS ---
PROCEDURE INFORMATION: Exam: XR Chest, 1 View Exam date and time: 08/11/2020 5:40 AM Age: 55 years old Clinical indication: Dyspnea; Additional info: Atelactasis TECHNIQUE: Imaging protocol: XR of the chest Views: 1 view. COMPARISON: CR XR chest 1V portable [id number] 08/02/2020 10:32 PM FINDINGS: Lungs: Unremarkable. No consolidation. Pleural space: Unremarkable. No pleural effusion. No pneumothorax. Heart/Mediastinum: Unremarkable. No cardiomegaly. Bones/joints: Unremarkable. XR/XR chest 1V portable [id number] IMPRESSION: No acute findings.
[2020-08-11 05:22] LABS: Basophils # 0.1 10^3/uL (0.0-0.1); Eosinophils # 0.1 10^3/uL (0.0-0.8); Eosinophils % 2.7 %; Hematocrit 40.6 % (42.0-52.0); Hemoglobin 13.5 g/dL (11.7-16.6); Lymphocytes # 2.5 10^3/uL (0.8-4.8); Lymphocytes % 50.5 %; Mean Corpuscular HGB Conc 33.3 g/dL (30.0-36.0); Mean Corpuscular Hemoglobin 31.4 pg (28.0-34.0); Mean Corpuscular Volume 94.4 fL (80-94); Mean Platelet Volume 9.9 fL (7.4-10.4); Monocytes # 0.5 10^3/uL (0.2-0.9); Monocytes % 10.6 %; Neutrophils # 1.71 10^3/uL (1.8-7.7); Nucleated Red Blood Cells % 0 %; Platelet Count 306 10^3/cmm (130-400); Red Cell Distribution Width 11.1 % (12.1-15.1); White Blood Count 4.9 10^3/uL (4.0-10.0)
[2020-08-11 05:50] LABS: Alanine Aminotransferase 53 U/L (0-41); Albumin Level 3.7 g/dL (3.5-5.2); Alkaline Phosphatase 145 IU/L (40-130); Anion Gap 11.9 (5-19); Aspartate Amino Transferase 29 U/L (0-40); Blood Urea Nitrogen 13 mg/dL (6-20); Calcium 8.7 mg/dL (8.5-10.5); Carbon Dioxide 29 mmol/L (22-29); Chloride 102 mmol/L (98-107); Creatinine Clr Calc Pharmacy 135.7147; Globulin 2.6 g/dL (1.3-4.6); Glomerular Filtration Rate 116.7 mL/min (90-130); Glucose 90 mg/dL (65-115); Osmolality Calculated 288 mOsm/kg (285-295); Potassium 3.9 mmol/L (3.5-5.1); Sodium 139 mmol/L (136-145); Total Bilirubin 0.4 mg/dL (0.15-1.2); Total Protein 6.3 g/dL (6.6-8.7); Uric Acid 6.3 mg/dL (3.4-7.0)
[2020-08-11] MEDS: TRAMadol 50 mg Tablet PO ×2 (08:09→17:40)
[2020-08-11] MEDS: polyethylene glycol 3350 Pkt 17 gm PO (08:09)
[2020-08-11] MEDS: thiamine 100 mg Tablet PO (08:09)
[2020-08-11] MEDS: pantoprazole DR 40 mg Tablet PO (08:09)
[2020-08-11] MEDS: folic acid 1 mg Tablet PO (08:09)
[2020-08-11] MEDS: duloxetine 30 mg Capsule PO (08:09)
[2020-08-11] MEDS: predniSONE 20 mg Tablet 40 MG PO (08:09)
[2020-08-11] MEDS: aspirin 81 mg EC Tablet PO (08:10)
[2020-08-11] MEDS: multivitamin therapeutic Tablet 1 TAB PO (08:10)
[2020-08-11] MEDS: ciprofloxacin 0.3% Op Soln 2.5 mL Btl 1 DROP EYE-BOTH ×4 (08:11→20:30)
--- NOTE | 2020-08-11 10:38 | P.PN_ITS ---
Subjective Subjective: Interval history: no new complaints today, started on steroids for gout flare Medications: Reviewed: Yes Vitals/I&O/Wt Last Vital Signs Temp 97.9 F 08/11/20 07:40 Pulse 86 08/11/20 08:42 Resp 18 08/11/20 08:42 BP 117/81 08/11/20 07:40 Pulse Ox 94 08/11/20 08:42 08/10/20 08/11/20 08/11/20 22:59 06:59 14:59 Intake Total 480 / 480 Output Total 600 / 1075 150 / 1225 150 / 150 Balance -600 / -715 -150 / -865 330 / 330 Physical Exam Narrative: EXAM NARRATIVE: GEN: Awake, alert and oriented, no acute distress CVS: S1S2 N RS: CTA B/L Abd: Soft, nt/nd , bs+ Data : 08/11/20 04:30 08/11/20 04:30 A&P Assessment and plan (1) Alcohol intoxication: This is currently resolved Status: Acute (2) Arm weakness: Reports weakness in bilateral arms, and also right leg, apepars more proximal weakness His lower extremity strength does appear to be improved today, he is now able to lift both his legs off the bed, flexes his legs at the hip greater than 90 degrees. Intermittent jerking movements noted of left lower extremity, likely related to restless legs. Upper extremity strength also mildly improved since admission. When first seen his right-sided director fraud was significantly weaker than the left one, this is now appearing to improve, though still asymmetric. Patient is also able to move both arms above the level of his shoulder today which is an improvement over the last exam. Paresthesias still persisting over the right arm MRI of the brain with moderate symmetric atrophy involving the temporal lobes and hippocampal formations, which may be related to alcohol use. This does not appear to explain his muscle weakness and paresthesias Continue participation with PT OT. He appears to be improving with physical therapy. Use soft cervical collar. Will make follow-up appointments with spine surgeon Dr. Young upon discharge to assess for any potential need for surgery down the line for spinal stenosis. If patient is still in the hospital on Wednesday we will try to get this assessment as an inpatient. Given scaly violaceous rash over the face, initially was concerned about dermatomyositis as well as possible etiology, however given negative CRP, normal CK, mildly elevated ESR this appears to be less likely. Vasculitic/connective tissue disorder screen returned negative. HIV, RPR and hepatitis screens returned negative. B12 folate TSH within normal range. Low normal random cortisol however ACTH stimulation test without evidence of adrenal insuffici ency. Status: Acute (3) Neck pain: As above. Degenerative changes noted on MRI of the spine along with spinal stenosis As needed [place] and lidocaine patch locally to the C-spine Status: Acute (4) Unable to ambulate: Complains of weakness in lower extremities, recurrent falls. Continue participation with PT OT Status: Acute (5) Rib fracture: From recurrent falls incentive siprometry lidocaine patch prn if needed Add albuterol nebulization as needed Status: Acute (6) Conjunctivitis: Erythema bilateral eyes, right greater than left well with ciprofloxacin drops and refresh eyedrops were added with significant improvement Status: Acute (7) Depression: No current suicidal ideation or intention. Depression mostly related to his home situation, taking care of his young kids etc. Added Cymbalta to his existing regimen to help with depression, which will additionally help with pain control and neuropathic pain. Complains of insomnia, will add xanax at night time Status: Acute (8) Cervical stenosis of spinal canal: Status: Acute (9) Degenerative arthritis of spine: Status: Acute (10) Gout flare: Right first PIP of foot improving Status: Acute Additional A&P Information Alcohol intoxication: This is resolved, continue thiamine and folic acid Troponin abnormality: 22-24-25, without significant delta. No chest pain. Retractile testes: Continue follow-up with urology as outpatient, Flomax has been resumed Full code DVT prophylaxis Lovenox Dispo: SNF placement given significant deconditioning, recurrent falls , muscle weakness and paresthesias likely related to cervical stenosis. ongoing need for PT/OT . Patient has been declined for placement at several facilities that have been contacted. If SNF placement unlikely to happen, alternate plan for discharge would be home health services with follow-up with Dr. Young and possibly neurology in the office. Attestations Medical Necessity Statement*: awaiting SNF placement Coding Level of Care Code Acute Pure Pak Machine Operator for Chg Fwd Diagnoses Alcohol intoxication F10.929 Arm weakness R29.898 Neck pain M54.2 Unable to ambulate R26.2 Rib fracture S22.39XA Conjunctivitis H10.9 Depression F32.9 Cervical stenosis of spinal canal M48.02 Degenerative arthritis of spine M47.9 Gout flare M10.9
[2020-08-11] MEDS: enoxaparin 40 mg/0.4 mL Syringe SUBCUT (11:16)
[2020-08-11] MEDS: ibuprofen 200 mg Tablet 400 MG PO (14:09)
[2020-08-11] MEDS: cyclobenzaprine 10 mg Tablet 5 MG PO (18:31)
[2020-08-11] MEDS: tamsulosin 0.4 mg Capsule PO (20:28)
[2020-08-11] MEDS: lidocaine 5% Patch 1 PATCH TOPICAL (20:28)
[2020-08-11] MEDS: ALPRAZolam 0.5 mg Tablet PO (20:28)
[2020-08-12] VITALS (8 sets, daily range): BP systolic 128–147; BP diastolic 72–87; PULSE 71–115; RESP 17–18; TEMP 36.5–37.3; O2SAT 93–97
[2020-08-12] MEDS: TRAMadol 50 mg Tablet PO ×2 (04:26→18:02)
[2020-08-12] MEDS: cyclobenzaprine 10 mg Tablet 5 MG PO ×3 (05:57→21:52)
[2020-08-12] MEDS: predniSONE 20 mg Tablet 40 MG PO (08:28)
[2020-08-12] MEDS: thiamine 100 mg Tablet PO (08:28)
[2020-08-12] MEDS: folic acid 1 mg Tablet PO (08:29)
[2020-08-12] MEDS: duloxetine 30 mg Capsule PO (08:29)
[2020-08-12] MEDS: aspirin 81 mg EC Tablet PO (08:29)
[2020-08-12] MEDS: pantoprazole DR 40 mg Tablet PO (08:29)
[2020-08-12] MEDS: multivitamin therapeutic Tablet 1 TAB PO (08:29)
[2020-08-12] MEDS: ciprofloxacin 0.3% Op Soln 2.5 mL Btl 1 DROP EYE-BOTH ×4 (08:37→21:44)
[2020-08-12] MEDS: ibuprofen 200 mg Tablet 400 MG PO (08:37)
--- NOTE | 2020-08-12 11:01 | PC.SOCIAL ---
IMM Update Pg. 2 of IMM updated and reviewed with patient who verbalized understanding. Copy provided.
[2020-08-12] MEDS: enoxaparin 40 mg/0.4 mL Syringe SUBCUT (12:16)
--- NOTE | 2020-08-12 14:08 | PM.PN ---
Documented by User: MICA Givens STDNT 08/12/20 14:24 Subjective Subjective: Interval history: Mr. Lunsford is a 55 yo male who presented August 02 for alcohol intoxication and progressive muscle weakness. Today he states he feels numb in his right hand today, but it is better than yesterday. Otherwise he says he feels fine. Pt reports that he hasn't been taking his prednisone for his gout for the past two years. Medications: Reviewed: Yes Vitals/I&O/Wt Last Vital Signs Temp 99.1 F 08/12/20 12:00 Pulse 88 08/12/20 12:00 Resp 18 08/12/20 12:00 BP 146/87 08/12/20 12:00 Pulse Ox 94 08/12/20 12:00 08/11/20 08/12/20 08/12/20 22:59 06:59 14:59 Intake Total 480 / 1200 240 / 1440 300 / 300 Output Total 600 / 950 500 / 1450 Balance -120 / 250 -260 / -10 300 / 300 Physical Exam Narrative: EXAM NARRATIVE: GEN: Awake, alert and oriented, no acute distress CVS: S1S2 N RS: CTA B/L Abd: Soft, nt/nd , bs+ Const: COMMON NORMALS: no acute distress, average body habitus, patient oriented x3, no limitations, alert and well nourished GENERAL APPEARANCE: comfortable, well developed and disheveled ORIENTATION/CONSCIOUSNESS: Yes awake (Seomewhat slowed mentation, sluggish responses.), Yes oriented to person, Yes oriented to place and Yes oriented to time HENMT: COMMON NORMALS: normocephalic, external ears normal, Normal external nose present and oropharynx normal HEAD & SCALP: normal to inspection and normocephalic NOSE: Normal external nose present EXTERNAL EAR: Yes external ears normal MOUTH: Normal oral and palatal mucosa present THROAT: posterior oropharynx normal Eye: COMMON NORMALS: Equal, round and reactive pupils present and EOMs intact bilaterally GENERAL EYE: appearance normal, both eyes and all related structures PUPIL: Yes Equal, round and reactive pupils present EOM: Yes Nystagmus present Neck/C-Spine: COMMON NORMALS: full ROM, no lymphadenopathy, no meningeal signs and no JVD GENERAL: Yes normal visual inspection Lymph: LYMPHATIC: no lymphadenopathy noted Chest: COMMONS NORMALS: normal inspection of the chest (Mild discomfort to palpation of right lower chest wall. ) Resp: COMMON NORMALS: normal respiratory effort, No retractions, No use of accessory muscles, clear to auscultation bilaterally and percussion normal EFFORT & INSPECTION: Yes able to speak in complete sentences AUSCULTATION: clear to auscultation bilaterally, wheezes and diminished lung sounds PERCUSSION: percussion normal Cardio: COMMON NORMALS: no JVD, regular rhythm, S1 normal heart sound present, S2 normal heart sound present, No murmurs present (Cardio) and Peripheral pulses 2+ throughout RATE: tachycardic RHYTHM: regular rhythm HEART SOUNDS: S1 normal heart sound present and S2 normal heart sound present PERIPHERAL PULSES: Peripheral pulses 2+ throughout GI: COMMON NORMALS: Normal to inspection, nondistended, normoactive bowel sounds present, Soft to palpation, non-tender and no masses INSPECTION: Yes normal to inspection PALPATION: Yes Soft to palpation : COMMON NORMALS: Yes no CVA tenderness BLADDER/KIDNEY EXAM: Yes no CVA tenderness Back/Pelvis: COMMON NORMALS: no CVA tenderness, thoracic and lumbar spine normal to inspection, no thoracic nor lumbar tenderness and thoraco-lumbar ROM normal Extremity: COMMON NORMALS: normal to inspection, full ROM, capillary refill normal, no joint enlargement and no pedal edema NARRATIVE EXTREMITY EXAM: Scabs to lower extremities approximately 20 in number possibly from picking scabs versus drug injection but unclear of cause. GENERAL: Yes normal exam except as noted RIGHT UPPER EXTREMITY: Yes shoulder joint (non-tender) RIGHT LOWER EXTREMITY: Yes hip joint (There is minimal to no pain with range of motion of the hip) and Yes knee joint Neuro: COMMON NORMALS: patient oriented x3, CN's II-XII intact bilaterally, moves all extremities, no focal motor deficits and no sensory deficits noted SENSORIUM/ORIENTATION: Yes alert, Yes oriented to person, Yes oriented to place and Yes oriented to time MENINGEAL SIGNS: Yes no meningeal signs GAIT: Yes Unable to assess gait SENSORY EXAM: Yes extremities (Reports paresthesia and decreased sensation over the radial aspect of his r) MOTOR EXAM: 5/5 motor strength present throughout (Power 4 to 5 out of 5 in all extremities. No focal deficit) and Other motor observations present (Mild myoclonus LE, worse on the left. Power 2/5 on the right, 3/5 left upp) OTHER: Pt is able to lift distal lower extremities bilaterally. Right hand presents with ulnar claw. Pt is unable to fully extend his 4th and 5th digit. Electrician Locomotive strength in L hand 5/5 and in right 4/5. Psych: COMMON NORMALS: mental status grossly normal, Normal thought process present, cooperative and speech normal APPEARANCE: Yes unkempt ATTITUDE: Yes paranoid, Yes bizarre and Yes uncooperative SPEECH: Yes normal speech THOUGHT PROCESS: Normal thought process present Skin: COMMON NORMALS: no rashes or lesions noted GENERAL SKIN EXAM: no rashes or lesions noted Data : 08/11/20 04:30 08/11/20 04:30 A&P Assessment and plan (1) Alcohol intoxication: Resolved Status: Acute (2) Arm weakness: Reports weakness in bilateral arms, and also right leg, apepars more proximal weakness His lower extremity strength does appear to be improved today, he is now able to lift both his legs off the bed, flexes his legs at the hip greater than 90 degrees. Intermittent jerking movements noted of left lower extremity, likely related to restless legs. Upper extremity strength also mildly improved since admission. When first seen his right-sided ela teacher was significantly weaker than the left one, this is now appearing to improve, though still asymmetric. Patient is also able to move both arms above the level of his shoulder today which is an improvement over the last exam. Paresthesias still persisting over the right arm. MRI of the brain with moderate symmetric atrophy involving the temporal lobes and hippocampal formations, which may be related to alcohol use. This does not appear to explain his muscle weakness and paresthesias Continue participation with PT OT. He appears to be improving with physical therapy. Use soft cervical collar. Will make follow-up appointments with spine surgeon Dr. Young upon discharge to assess for any potential need for surgery down the line for spinal stenosis. Given scaly violaceous rash over the face, initially was concerned about dermatomyositis as well as possible etiology, however given negative CRP, normal CK, mildly elevated ESR this appears to be less likely. Vasculitic/connective tissue disorder screen returned negative. HIV, RPR and hepatitis screens returned negative. B12 folate TSH within normal range. Low normal random cortisol however ACTH stimulation test without evidence of adrenal insufficiency. Status: Acute (3) Neck pain: As above. Degenerative changes noted on MRI of the spine along with spinal stenosis As needed [place] and lidocaine patch locally to the C-spine Status: Acute (4) Unable to ambulate: Complains of weakness in lower extremities, recurrent falls. Continue participation with PT OT Status: Acute (5) Rib fracture: From recurrent falls incentive siprometry lidocaine patch prn if needed Add albuterol nebulization as needed Status: Acute (6) Conjunctivitis: Erythema bilateral eyes, right greater than left well with ciprofloxacin drops and refresh eyedrops were added with significant improvement Status: Acute (7) Depression: No current suicidal ideation or intention. Depression mostly related to his home situation, taking care of his young kids etc. Added Cymbalta to his existing regimen to help with depression, which will additionally help with pain control and neuropathic pain. Complains of insomnia, will add xanax at night time Status: Acute (8) Cervical stenosis of spinal canal: Status: Acute (9) Degenerative arthritis of spine: Status: Acute (10) Gout flare: Right first PIP of foot Has improved since yesterday. Continue prednisone treatment. Status: Acute Additional A&P Information Alcohol intoxication: This is resolved, continue thiamine and folic acid Troponin abnormality: , without significant delta. No chest pain. Retractile testes: Continue follow-up with urology as outpatient, Flomax has been resumed Full code DVT prophylaxis Lovenox Dispo: SNF placement given significant deconditioning, recurrent falls , muscle weakness and paresthesias likely related to cervical stenosis. ongoing need for PT/OT . Patient has been declined for placement at several facilities that have been contacted. If SNF placement unlikely to happen, alternate plan for discharge would be home health services with follow-up with Dr. Young and possibly neurology in the office. Attestations Medical Necessity Statement*: Will continue to monitor gout flare symptoms Coding Level of Care Code Acute Construction Equipment Technician for Chg Fwd Exam Comprehensive Diagnoses Alcohol intoxication F10.929 Arm weakness R29.898 Neck pain M54.2 Unable to ambulate R26.2 Rib fracture S22.39XA Conjunctivitis H10.9 Depression F32.9 Cervical stenosis of spinal canal M48.02 Degenerative arthritis of spine M47.9 Gout flare M10.9 Documented by User: Tiffanie Martinez MD 08/12/20 14:59 Data : 08/11/20 04:30 08/11/20 04:30 A&P Additional A&P Information Agree with med student A&P as above. Spine surgery consult with Hannah Nieves, patient elaning towards returning home with HH at this time, states he needs ~24 hrs to make arrangements at home for safe return. Coding Level of Care Code Acute Construction Equipment Technician for g Fwd Exam Comprehensive Diagnoses Alcohol intoxication F10.929 Arm weakness R29.898 Neck pain M54.2 Unable to ambulate R26.2 Rib fracture S22.39XA Conjunctivitis H10.9 Depression F32.9 Cervical stenosis of spinal canal M48.02 Degenerative arthritis of spine M47.9 Gout flare M10.9
--- NOTE | 2020-08-12 18:19 | PC.NURSE ---
End of shift report Patient states that he wants to go home tomorrow but he needs help because his significant other is injured herself and can not take care of him. He would like us to set us meals on wheels for him as his food stamps have been cut off for some reason. Patient wants to talk to the doctor tomorrow about home health and meals on wheels. Patient had a large bowel movement today as well as yesterday.
[2020-08-12] MEDS: ALPRAZolam 0.5 mg Tablet PO (21:43)
[2020-08-12] MEDS: lidocaine 5% Patch 1 PATCH TOPICAL (21:43)
[2020-08-13 00:04] VITALS: BP 150/87; PULSE 87; RESP 18; TEMP 36.7; O2SAT 96
[2020-08-13 04:32] VITALS: BP 135/79; PULSE 84; RESP 18; TEMP 36.6; O2SAT 96
[2020-08-13] MEDS: TRAMadol 50 mg Tablet PO (05:12)
[2020-08-13] MEDS: cyclobenzaprine 10 mg Tablet 5 MG PO (06:20)
[2020-08-13 07:45] VITALS: BP 145/73; PULSE 58; RESP 20; TEMP 36.7; O2SAT 91
[2020-08-13] MEDS: multivitamin therapeutic Tablet 1 TAB PO (08:08)
[2020-08-13] MEDS: predniSONE 20 mg Tablet 40 MG PO (08:08)
[2020-08-13] MEDS: polyethylene glycol 3350 Pkt 17 gm PO (08:08)
[2020-08-13] MEDS: lidocaine 5% Patch 1 PATCH TOPICAL (08:09)
[2020-08-13] MEDS: pantoprazole DR 40 mg Tablet PO (08:09)
[2020-08-13] MEDS: ciprofloxacin 0.3% Op Soln 2.5 mL Btl 1 DROP EYE-BOTH ×2 (08:09→11:18)
[2020-08-13] MEDS: folic acid 1 mg Tablet PO (08:09)
[2020-08-13] MEDS: thiamine 100 mg Tablet PO (08:09)
[2020-08-13] MEDS: aspirin 81 mg EC Tablet PO (08:09)
[2020-08-13] MEDS: duloxetine 30 mg Capsule PO (08:09)
--- NOTE | 2020-08-13 08:14 | PM.CONSULT ---
Providers/Reason For Consult Consulting Physican/Specialty*: Spine Reason for Consult*: Central cord syndrome Attending Physician: Tiffanie Martinez MD Primary Care Provider: Edward Garcia DO History of Present Illness History of Present Illness Spenser Lunsford is a 55 year old male alcohol intoxication presented last week for generalized weakness. Patient is stating that he fell twice last few months, his recent fall was about 2 weeks ago, he is not a reliable historian, he stating that he came to the hospital because he was feeling extremely weak and was thinking of getting to a [facility] in order to strengthen himself to take care of his children. Patient kept falling asleep during my interview, he stated that today he took sleeping pills and then he was not able to move his arms that is why he called EMS. He is endorsing methamphetamine abuse and stating marijuana is in my system: Diagnosis in the ER revealed tachycardia, hypertension, I do not have neck or head CT which I have requested however chest x-ray and hip x-ray did not show any fractures, I was consulted for hand numbness and neck pain. Review of Systems Narrative: General ROS: negative for weight changes, fever ENT ROS: negative for nasal congestion, drainage or bleeding, sore throat, dysphagia or ear pain Eyes: PERRL Hematological and Lymphatic ROS: negative for swollen glands or abnormal bleeding Endocrine ROS: negative for polyuria/polydpsia or new changes in weight Respiratory ROS: negative for cough, shortness of breath, or wheezing Cardiovascular ROS: negative for chest pain or dyspnea on exertion Gastrointestinal ROS: negative for reflux, abdominal pain, change in bowel habits, or black or bloody stools Musculoskeletal ROS: negative for back pain, neck pain, or joint pain or swelling except for current problem Neurological ROS: negative for TIA or stoke symptoms Skin: no rashes Meds/Allergies Home Medications and Allergies Home Medications Medication Instructions Recorded Confirmed Last Taken Type tamsulosin 0.4 mg capsule 0.4 mg PO .at bedtime #90 cap 11/28/19 08/03/20 Unknown Rx Allergies Allergy/AdvReac Type Severity Reaction Status Date / Time No Known Allergies Allergy Verified 12/01/19 09:38 Current Medications Current Medications Generic Name Dose Route Start Last Admin Trade Name Freq PRN Reason Stop Dose Admin Alprazolam 0.5 mg 08/10/20 21:00 08/12/20 21:43 Alprazolam 0.5 Mg Tablet PO 0.5 mg BEDTIME CHARBEL Administration Artificial Tears 1 drop 08/06/20 13:45 08/09/20 08:10 Artificial Tears Op Soln 15 Ml Btl EYE-BOTH 1 drop Q4H PRN Administration DRY EYE(S) Aspirin 81 mg 08/03/20 10:01 08/13/20 08:09 Aspirin 81 Mg Ec Tablet PO 81 mg DAILY CHARBEL Administration Ciprofloxacin HCl 1 drop 08/06/20 17:00 08/13/20 08:09 Ciprofloxacin 0.3% Op Soln 2.5 Ml Btl EYE-BOTH 1 drop QID CHARBEL Administration Protocol Cyclobenzaprine HCl 5 mg 08/10/20 13:21 08/13/20 06:20 Cyclobenzaprine 10 Mg Tablet PO 5 mg TID PRN Administration MUSCLE SPASMS Diphenhydramine HCl 50 mg 08/07/20 04:55 08/08/20 22:44 Diphenhydramine 50 Mg Capsule PO 50 mg BEDTIME PRN Administration INSOMNIA Duloxetine HCl 30 mg 08/09/20 09:00 08/13/20 08:09 Duloxetine 30 Mg Capsule PO 30 mg DAILY CHARBEL Administration Enoxaparin Sodium 40 mg 08/03/20 11:00 08/12/20 12:16 Enoxaparin 40 Mg/0.4 Ml Syringe SUBCUT 40 mg Q24H CHARBEL Administration Folic Acid 1 mg 08/03/20 10:01 08/13/20 08:09 Folic Acid 1 Mg Tablet PO 1 mg DAILY CHARBEL Administration Ibuprofen 400 mg 08/10/20 13:23 08/12/20 08:37 Ibuprofen 200 Mg Tablet PO 400 mg BID PRN Administration pain Lanolin 1 applic 08/08/20 04:08 08/08/20 04:21 Lanolin Oint 7 Gm TOPICAL 1 applic PRN PRN Administration DRYNESS Lidocaine 1 patch 08/06/20 21:00 08/13/20 08:09 Lidocaine 5% Patch TOPICAL 1 patch [id number] CHARBEL Administration Multivitamins Therapeutic 1 tab 08/03/20 10:01 08/13/20 08:08 Multivitamin Therapeutic Tablet PO 1 tab DAILY CHARBEL Administration Pantoprazole Sodium 40 mg 08/11/20 09:00 08/13/20 08:[address] 40 Mg Tablet PO 40 mg DAILY CHARBEL Administration Polyethylene Glycol 17 gm 08/11/20 09:00 08/13/20 08:08 Polyethylene Glycol 3350 Pkt 17 Gm PO 17 gm DAILY CHARBEL Administration Prednisone 40 mg 08/11/20 09:00 08/13/20 08:08 Prednisone 20 Mg Tablet PO 08/16/20 08:59 40 mg DAILY CHARBEL Administration Tamsulosin HCl 0.4 mg 08/06/20 21:00 08/12/20 22:20 Tamsulosin 0.4 Mg Capsule PO Not Given BEDTIME CHARBEL Thiamine Mononitrate 100 mg 08/04/20 09:00 08/13/20 08:09 Thiamine 100 Mg Tablet PO 100 mg DAILY CHARBEL Administration Tramadol HCl 50 mg 08/07/20 11:58 08/13/20 05:12 Tramadol 50 Mg Tablet PO 50 mg Q8H PRN Administration MODERATE PAIN PFSH Acute PFSH: Medical History COPD (chronic obstructive pulmonary disease) Left testicular pain Lower urinary tract symptoms (LUTS) Retractile testis Surgical History S/P hip arthroscopy Family History Mother No problems noted. Father , 45-Cancer Cancer Social History Smoking and tobacco status: current every day smoker Alcohol intake: current Alcohol intake frequency: 3 or more drinks per day Marital status: Current occupational status: disabled History of recent travel: No Vitals/I&O/Wt Last Vital Signs Temp 98.0 F 08/13/20 07:45 Pulse 58 L 08/13/20 07:45 Resp 20 H 08/13/20 07:45 BP 145/73 08/13/20 07:45 Pulse Ox 91 08/13/20 07:45 08/12/20 08/13/20 08/13/20 22:59 06:59 14:59 Output Total 500 / 500 300 / 800 Balance -500 / 120 -300 / -180 Physical Exam Narrative: EXAM NARRATIVE: GENERAL: Patient in no acute distress. CARDIAC: Regular rate and rhythm. CHEST: Normal inspiratory effort, normal respiratory rate. ABDOMEN: Soft and nontender. SKIN: Clear, warm and intact. NEURO?PSYCH: The patient is alert and oriented to person, place and time. Sensorv /SILT Motor StrengthShoulder abduction C5 5/5Wrist extension C6 5/5Elbow extension C7 5/5Hand Soccer Coach C8 5/5Finger abduction T15/5 Radial/ Ulnar/ Median n intact LowerSensory (SILT)Motor StrengthHin flexion L2/3Ant/inner thigh 5/5Hip adduction L2/3 5/5Knee extension L4 Lat thigh, 5/5Toe dorsiflexion L5 5/5Ankle dorsiflexion L5/ [id number] flexion S1 5/5 Right side 4/5 DTRBleeps 2+Triceps 2+Brachioradialis 2+Patellar 2+Achilles 2+ MUSCULOSKELETAL: Bilateral hand weakness and numbness with the right greater than left UPPEREXTREMITIES: The patient had full active ROM in fingers, wrist, elbow, and shoulder. The patient demonstrated ability to fully flex/extend/abduct/adduct fingers, make ok sign, cross 2nd/3rd digits, extend 1st digit fully.. Radial pulse 2+, CR<2 seconds. LOWER EXTREMITIES: Pt has full, active ROM of toes, ankle, knee, and hip. Dorsalis pedis/posterior tibialis pulses 2+, CR<2 seconds. SPINE: Skin warm, dry, intact. A&P Assessment and plan (1) Central cord synd/C1-C4: Patient appears to have a central cord syndrome. His MRI is reviewed and shows significant stenosis at C3/4, C4/5, C5/6. Patient will likely need surgery. At this point I will see him in clinic in 1-2 weeks to see how he is progressing and decide if surgery is necessary. Status: Acute (2) Central cord synd/C5-C7: Status: Acute Coding Level of Care Code Acute Volunteer Patient Representative for [facility] Diagnoses Central cord synd/C1-C4 S14.121A Central cord synd/C5-C7
[2020-08-13] MEDS: enoxaparin 40 mg/0.4 mL Syringe SUBCUT (11:18)
[2020-08-13 11:34] VITALS: BP 136/89; PULSE 99; RESP 18; TEMP 36.9; O2SAT 95
[2020-08-13 14:50] VITALS: BP 136/89; PULSE 99; RESP 18; TEMP 36.9; O2SAT 95
--- NOTE | 2020-08-13 17:11 | P.DS_ITS ---
Discharge Providers Date of Admission: 08/03/20 00:11 Date of Discharge: August 13, 2020 Attending Provider at Admission: Lesia Lazcano MD Attending Provider at Discharge: Tiffanie Martinez MD Primary Care Provider: Edward Garcia DO Diagnoses at Discharge Discharge Diagnosis (1) Central cord synd/C1-C4: Status: Acute (2) Central cord synd/C5-C7: Status: Acute (3) Gout flare: Status: Acute (4) Degenerative arthritis of spine: Status: Acute (5) Cervical stenosis of spinal canal: Status: Acute (6) Conjunctivitis: Status: Acute (7) Depression: Status: Acute (8) Unable to ambulate: Status: Acute (9) Rib fracture: Status: Acute (10) Alcohol withdrawal: Status: Acute Qualifiers: Complication of substance-induced condition: with unspecified complication Qualified Code(s): F10.239 - Alcohol dependence with withdrawal, unspecified (11) Alcohol intoxication: Status: Acute Reason for Visit Reason for Visit: WEAKNESS Hospital Course Hospital Course 54 year old male who is endorsing previous history of methamphetamine abuse, alcohol intoxication presented 08/03 for generalized weakness. Patient is stating that he fell twice last few months, his recent fall was about 2 weeks ago. Had been having progressive weakness, numbness in the right upper extremity since his fall several weeks ago with neck injury at the time, but also has had another fall between then and now when he hit his right side upper back after falling in the bathtub. Reports that could not lift or open his right forearm and hand, with numbness, as well as weakness on the left side as well, and this prompted him to come to the hospital. Also says has been unable to walk unassisted for the past 2 weeks. His power was noted to be 2/5 RUE, 3/5 LUE, mild myoclonus LLE, on first exam, unable to lift left leg off the bed. During course of admission, his UE strength did improve with PT/OT, he was able to lift both arms above the level of the shoulder a few days prior to discharge. Right sided patients transporter did remain weaker than the left and he also continues to experience paresthesias on the right side. Lower extremity strength also improved significantly he was able to flex at both the knees and able to have greater than 90 degrees motion at both hip joints. He was still unsteady with walking, however was able to bear weight on both his legs which he states he was unable to do upon admission. Weightbearing was also limited by a gout flare that he had prior to his discharge for which p.o. prednisone has been prescribed to him. Work-up for his presentation included CT of the head which was unremarkable degenerative disc disease of C5-C6 with mild posterior disc bulge. MRI of the brain was performed which showed moderate asymmetric atrophy involving the temporal lobes and hippocampal formations, no CVA was noted. MRI of the spine revealed significant stenosis at the levels of C3-C4, C4-C5, C5-C6 with central cord syndrome for which she was seen by Dr. Young spine surgery and reassessment within 1 to 2 weeks as an outpatient is recommended to see if he will need surgery for the same. Given scaly violaceous rash over the face, initially was concerned about dermatomyositis as well as possible etiology, however given negative CRP, normal CK, mildly elevated ESR this appears to be less likely. Vasculitic/connective tissue disorder screen returned negative. HIV, RPR and hepatitis screens returned negative. B12 folate TSH within normal range. Low normal random cortisol however ACTH stimulation test without evidence of adrenal insufficiency. Other hospital issues included monitoring for alcohol withdrawal upon admission. For his gout flare p.o. prednisone was prescribed for 5 days. He requested a new primary care provider and referral was provided to Dr. Garcia, may need to resume allopurinol on which he was continued for several years until patient stopped it himself 2 years ago. He reported being severely depressed due to his home situation, he has recently reconciled with his ex- and they are living together now to take care of his 2 children. Most of his anxiety revolves around their future and his ability to take care of them given his recent diagnosis and increasing muscular weakness. He was started on duloxetine during the admission to help with depression and neuropathic pain. Xanax was also additionally given at bedtime with which patient reported improved insomnia. He had rib fractures, serial chest x-rays did not show any evidence of pneumothorax or hemothorax. Spirometry was encouraged and lidocaine patch was used as needed. He had conjunctivitis bilaterally for which he was given refresh eyedrops and ciprofloxacin eyedrops with significant improvement. This is resolved at the time of discharge. SNF placement was attempted given significant deconditioning recurrent falls muscle weakness and paresthesias, however he was declined at several facilities, patient then elected to return home with home health services. He is encouraged to follow-up with provided referrals for the next 2 to 3 weeks. Physical Exam Narrative: EXAM NARRATIVE: GEN: Awake, alert and oriented, no acute distress CVS: S1S2 N RS: CTA B/L Abd: Soft, nt/nd , bs+ Neuro: Right correct slightly weaker than the left, reports paresthesia, full range of motion at ankle knee, able to lift both lower extremities off the bed, flexion at hip joint noted to be greater than 90 degrees. Able to lift both arms above the level of the shoulder which she was unable to do previously Discharge Data Data Completed and Pending: Completed Studies During Hospitalization Category Date Time Status CT angio headneck * 54979/44121 Rout ine Cat Scan 08/03/20 13:[address] cervical spin wo con* 67331 Urge nt Cat Scan 08/03/20 00:[address] head wo con* 7 0450 Stat Cat Scan 08/03/20 00:[address] thoracic spin wo con* [id number] Rout ine Cat Scan 08/03/20 10:01 Completed XR chest 1V holly ble [id number] AM LABS Exams 08/11/20 04:00 Completed XR chest 1V holly ble [id number] Urgent Exams 08/02/20 20:39 Completed XR hip BI m 5V wo /w pel* [id number] Stat Exams 08/02/20 20:49 Completed MR cervical spin wo con* [id number] Rout ine MRI 08/05/20 10:15 Completed MR head wo con* 7 0551 Routine MRI 08/05/20 10:15 [place] [address] Routine MRI 08/05/20 10:15 Completed Vitals: Last Vital Signs Temp 98.4 F 08/13/20 14:50 Pulse 99 08/13/20 14:50 Resp 18 08/13/20 14:50 BP 136/89 08/13/20 14:50 Pulse Ox 95 08/13/20 14:50 Discharge Plan Discharge Patient Disposition: Home Health Service Condition: Stable Prescriptions: New cyclobenzaprine 10 mg Tablet 5 mg PO TID PRN (Reason: Muscle Spasms) 7 Days Qty: 21 RF: 0 aspirin 81 mg Tablet,Delayed Release (Dr/Ec) 81 mg PO DAILY 30 Days Qty: 30 RF: 0 alprazolam 0.5 mg Tablet 0.25 mg PO BID PRN (Reason: anxiety) 7 Days Qty: 14 RF: 0 Isopto Tears 0.5 % Drops 1 drp eye-both Q4H PRN (Reason: Dry Eye(S)) 14 Days Qty: 1 RF: 0 hydrocodone-acetaminophen 5-325 mg Tablet 1 tab PO Q8H PRN (Reason: Moderate Pain) 7 Days Qty: 20 RF: 0 prednisone 20 mg Tablet 40 mg PO DAILY 5 Days Qty: 5 RF: 0 pantoprazole 40 mg Tablet,Delayed Release (Dr/Ec) 40 mg PO DAILY 30 Days Qty: 30 RF: 0 duloxetine 30 mg Capsule,Delayed Release(Dr/Ec) 30 mg PO DAILY 14 Days Qty: 14 RF: 0 Thera 400 mcg Tablet 1 tab PO DAILY Qty: 0 RF: 0 Continued tamsulosin 0.4 mg capsule 0.4 mg PO .at bedtime Qty: 90 RF: 3 Discharge Orders: Discharge Order (Routine); Ordered 08/13/20 Ordered By: Tiffanie Martinez Other Ambulatory Orders: DME: Wheelchair (Order) Location: None Selected Ordered By: Tiffanie Martinez Referrals: Kat Magallon MD [Physician] - 09/26/20 11:30 am (central cord syndrome, fluctuating muscle weakness will be on cancellation list.) Meet Young DO [Physician] - 08/22/20 9:00 am Edward Garcia DO [Primary Care Provider] - 08/19/20 3:00 pm Discharge Diet: Usual diet Discharge Activity: Increase activity as tolerated, Use walker/crutches as instructed and As per PT/OT instructions Patient Instructions: Hydrocodone/Acetaminophen (By mouth), Alprazolam (By mouth), Prednisone (By mouth), Cyclobenzaprine (By mouth), Duloxetine (By mouth) Activity Restrictions/Additional Instructions: To follow up on your food stamps, please call and follow the prompts. Discharge Attestations Time Spent in Discharge Care*: greater than 30 min Specific Discharge Activities: educating patient, discussing with pcp/other providers, discussing with child support case officer/social workers/dc planners, documenting/other paperwork and evaluating patient/reviewing data Status at Discharge: Cognitive status at discharge: cognitively intact , Behavioral status at discharge: cooperative , Functional status at discharge: other assisted ambulation Overall status at discharge: patient is not back to baseline Quality Metrics Clinical Quality Measures During this hospital stay, did patient experience: None Coding Level of Care Code 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
== END 2020-08-13 14:51 | disposition home health service (06) | DRG 56 ==
LOC: ER 08-03 00:52 → ICU 08-03 01:02 → MEDSURG 08-05 17:39
PROVIDERS: Internal Medicine; Admitting Provider Internal Medicine; Emergency Provider Family Medicine; PCP Internal Medicine; Visit Provider Student in an Organized Health Care Education/Training Program
DX: G81.90 Hemiplegia, unspecified affecting unspecified side (principal); S14.121A Central cord syndrome at C1 level of cervical spinal cord, initial encounter; S22.43XA Multiple fractures of ribs, bilateral, initial encounter for closed fracture; F10.239 Alcohol dependence with withdrawal, unspecified; G93.40 Encephalopathy, unspecified; F15.10 Other stimulant abuse, uncomplicated; R29.6 Repeated falls; F12.90 Cannabis use, unspecified, uncomplicated; I10 Essential (primary) hypertension; J44.9 Chronic obstructive pulmonary disease, unspecified; N40.1 Benign prostatic hyperplasia with lower urinary tract symptoms; F17.210 Nicotine dependence, cigarettes, uncomplicated; M54.2 Cervicalgia; Q55.22 Retractile testis; R29.898 Other symptoms and signs involving the musculoskeletal system; L84 Corns and callosities; M62.81 Muscle weakness (generalized); M47.812 Spondylosis without myelopathy or radiculopathy, cervical region; F32.9 Major depressive disorder, single episode, unspecified; M10.9 Gout, unspecified; H10.9 Unspecified conjunctivitis; W19.XXXA Unspecified fall, initial encounter
CPT/HCPCS: 12345; 36415; 36600; 70450; 70496; 70498; 70544; 70551; 71045; 72125; 72128; 72141; 73521; 73523; 80053; 80061; 80306; 80307; 81003; 82533; 82550; 82607; 82746; 82805; 82977; 83036; 83605; 83735; 84443; 84484; 84550; 85025; 85610; 85651; 86140; 86592; 86705; 86706; 86709; 86803; 87040; 87340; 87426; 87804; 87806; 93005; 94640; 96372; 97110; 97116; 97162; 97166; 97530; 97535; 99282; J0696; J0834; J1650; J2060; J3411; J3535; J7030; J7512; Q0163; Q9967

== ENCOUNTER → 2020-08-22 09:20 | Outpatient (BNVA) | payer MEDICARE, MEDICAID, SELFPAY | PROVIDERS: PCP Internal Medicine; Visit Provider Orthopaedic Surgery | DX: S14.121A Central cord syndrome at C1 level of cervical spinal cord, initial encounter (principal); M54.2 Cervicalgia; M47.812 Spondylosis without myelopathy or radiculopathy, cervical region | CPT/HCPCS: 72040 ==

== ENCOUNTER 2020-08-22 09:53 | Inpatient (IN) | payer MEDICARE, MEDICAID, SELFPAY ==
[2020-08-22] VITALS (12 sets, daily range): BP systolic 112–145; BP diastolic 61–95; PULSE 79–113; RESP 16–24; TEMP 36.1–36.9; O2SAT 92–97; BMI 31.0
--- NOTE | 2020-08-22 10:02 | W.ED.NECK ---
Documented by User: DIPESH Woodruff 08/22/20 11:43 HPI - Neck Pain/Injury General: Chief Complaint: Neuro Symptoms/Deficit Stated Complaint: Neck pain Time Seen by Provider: 08/22/20 10:02 Source: patient Mode of arrival: wheelchair Limitations: no limitations History of Present Illness: HPI Narrative: Patient is a 55-year-old male who presents to the ED today at the request of Dr. Young for a plan for admission and anterior cervical discectomy and fusion surgery tomorrow. Patient has complaints of right upper extremity weakness and paresthesias. He is also having complaints of right lower extremity weakness as well as bowel incontinence. Patient tells me he has not been ambulatory since 07/23. States he was recently admitted due to frequent falls and alcohol withdrawal. Duration: constant and progressively worsening Relieving factors: none Exacerbating factors: none Associated symptoms: Reports difficulty walking; Denies headache(s) or nausea Treatments prior to arrival: none Review of Systems Const: Denies: fever(s) or chills Eyes: Denies: change in vision or blurry vision Card: Denies: chest pain, palpitations, irregular heart rhythm, lightheadedness, syncope or dyspnea on exertion Resp: Denies: dyspnea, productive cough or pain on inspiration GI: Denies: abdominal pain, nausea, vomiting, heartburn or diarrhea : Denies: difficulty urinating or dysuria Musc: Reports: neck pain, limited range of motion and muscle weakness; Denies: back pain or joint pain Skin/Breast: Denies: rash Neuro: Reports: numbness in extremities, weakness in extremities, difficulty walking and frequent falls; Denies: headache(s) [facility] ED PFSH: Medical History COPD (chronic obstructive pulmonary disease) Left testicular pain Lower urinary tract symptoms (LUTS) Retractile testis Surgical History S/P hip arthroscopy Family History Mother No problems noted. Father , 45-Cancer Cancer Social History Smoking and tobacco status: current every day smoker Alcohol intake: current Alcohol intake frequency: 3 or more drinks per day Marital status: Current occupational status: disabled History of recent travel: No Physical Exam Const: COMMON NORMALS: no acute distress, patient oriented x3, no limitations, alert and well nourished ORIENTATION/CONSCIOUSNESS: Yes awake, Yes oriented to person, Yes oriented to place and Yes oriented to time HENMT: COMMON NORMALS: normocephalic and atraumatic HEAD & SCALP: normocephalic and atraumatic Neck/C-Spine: COMMON NORMALS: full ROM, no lymphadenopathy, supple and no meningeal signs Chest: COMMONS NORMALS: normal inspection of the chest Resp: COMMON NORMALS: normal respiratory effort and clear to auscultation bilaterally AUSCULTATION: clear to auscultation bilaterally Cardio: COMMON NORMALS: regular rhythm RATE: tachycardic RHYTHM: regular rhythm GI: COMMON NORMALS: Normal to inspection, nondistended, normoactive bowel sounds present, Soft to palpation, non-tender, No hepatosplenomegaly present and no masses PALPATION: Yes Soft to palpation and Yes No hepatosplenomegaly present : COMMON NORMALS: Yes no CVA tenderness BLADDER/KIDNEY EXAM: Yes no CVA tenderness Back/Pelvis: COMMON NORMALS: no CVA tenderness and thoracic and lumbar spine normal to inspection Neuro: COMMON NORMALS: patient oriented x3 SENSORIUM/ORIENTATION: Yes alert, Yes oriented to person, Yes oriented to place and Yes oriented to time MENINGEAL SIGNS: Yes no meningeal signs SPEECH: speech normal GAIT: Yes Unable to assess gait OTHER: decreased strength with hip flexion on right; he has normal strength of knee extension, ankle/toe dorsiflexion decreased strength of R UE elbow and wrist extension when compared left Skin: COMMON NORMALS: no rashes or lesions noted GENERAL SKIN EXAM: no rashes or lesions noted Course Vital Signs: Vital signs: Vital Signs Temperature 96.9 F L 08/22/20 10:02 Pulse Rate 110 H 08/22/20 10:19 Respiratory Rate 18 08/22/20 10:19 Blood Pressure 112/84 08/22/20 10:19 Pulse Oximetry 95 08/22/20 10:19 MDM - Neck Pain/Injury MDM Narrative: Medical decision making narrative: Will order pre-op labs and rapid COVID. I have spoken to Dr. Araya who took report from Dr. Young and she will speak to hospitalist for admission. Hospitalist apparently declined patient and wanted Dr. Young to admit patient. Dr. Araya has spoken to Dr. Young and he will admit. Lab Data: Labs: Lab Results 08/22/20 08/22/20 08/22/20 Range/Units 10:40 10:40 10:40 WBC 6.7 (4.0-10.0) 10^3/ uL RBC 4.94 (4.1-5.3) 10^6/u L Hgb 15.7 (11.7-16.6) g/dL Hct 46.4 (42.0-52.0) % MCV 93.9 (80-94) fL MCH 31.8 (28.0-34.0) pg MCHC 33.8 (30.0-36.0) g/dL RDW 11.5 L (12.1-15.1) % Plt Count 462 H (130-400) 10^3/c mm MPV 9.0 (7.4-10.4) fL Neut % (Auto) 49.3 % Lymph % (Auto) 39.3 % Cataño % (Auto) 8.4 % Eos % (Auto) 2.0 % Baso % (Auto) 0.8 % Neut # (Auto) 3.29 (1.8-7.7) 10^3/u L Lymph # (Auto) 2.6 (0.8-4.8) 10^3/u L Cata[place] # (Auto) 0.6 (0.2-0.9) 10^3/u L Eos # (Auto) 0.1 (0.0-0.8) 10^3/u L Baso # (Auto) 0.1 (0.0-0.1) 10^3/u L Nucleated RBC % (a uto) 0 % Nucleated RBCs # 0.0 /100WBC PT 12.70 (12.1-14.9) SECO NDS INR 0.93 (0.8-1.2) APTT 27.6 (23.9-36.7) SECO NDS Sodium 136 (136-145) mmol/L Potassium 3.7 (3.5-5.1) mmol/L Chloride 100 (98-107) mmol/L Carbon Dioxide 28 (22-29) mmol/L Anion Gap 11.7 (5-19) BUN 10 (6-20) mg/dL Creatinine 0.6 L (0.7-1.2) mg/dL GFR Calculation 139.4 H (90-130) mL/min Glucose 156 H (65-115) mg/dL Calculated Osmolal ity 284 L (285-295) mOsm/k g Calcium 9.3 (8.5-10.5) mg/dL Total Bilirubin 0.4 (0.15-1.2) mg/dL AST 22 (0-40) U/L ALT 43 H (0-41) U/L Alkaline Phosphata se 166 H (40-130) IU/L Total Protein 6.7 (6.6-8.7) g/dL Albumin 4.3 (3.5-5.2) g/dL Globulin 2.4 (1.3-4.6) g/dL Urine Color (Yellow) Urine Appearance (CLEAR) Urine pH (5-7) Ur Specific Gravit y (1.005-1.030) Urine Protein (Negative) Urine Glucose (UA) (Normal) Urine Ketones (Negative) Urine Blood (Negative) Urine Nitrate (Negative) Urine Bilirubin (Negative) Urine Urobilinogen (Negative) mg/dL Ur Leukocyte Dede ase (Negative) SARS-CoV-2 Ag (Rap id) (Negative) 08/22/20 08/22/20 Range/Units 10:40 10:56 WBC (4.0-10.0) 10^3/ uL RBC (4.1-5.3) 10^6/u L Hgb (11.7-16.6) g/dL Hct (42.0-52.0) % MCV (80-94) fL MCH (28.0-34.0) pg MCHC (30.0-36.0) g/dL RDW (12.1-15.1) % Plt Count (130-400) 10^3/c mm MPV (7.4-10.4) fL Neut % (Auto) % Lymph % (Auto) % Cata[place] % (Auto) % Eos % (Auto) % Baso % (Auto) % Neut # (Auto) (1.8-7.7) 10^3/u L Lymph # (Auto) (0.8-4.8) 10^3/u L [place] # (Auto) (0.2-0.9) 10^3/u L Eos # (Auto) (0.0-0.8) 10^3/u L Baso # (Auto) (0.0-0.1) 10^3/u L Nucleated RBC % (a uto) % Nucleated RBCs # /100WBC PT (12.1-14.9) SECO NDS INR (0.8-1.2) APTT (23.9-36.7) SECO NDS Sodium (136-145) mmol/L Potassium (3.5-5.1) mmol/L Chloride (98-107) mmol/L Carbon Dioxide (22-29) mmol/L Anion Gap (5-19) BUN (6-20) mg/dL Creatinine (0.7-1.2) mg/dL GFR Calculation (90-130) mL/min Glucose (65-115) mg/dL Calculated Osmolal ity (285-295) mOsm/k g Calcium (8.5-10.5) mg/dL Total Bilirubin (0.15-1.2) mg/dL AST (0-40) U/L ALT (0-41) U/L Alkaline Phosphata se (40-130) IU/L Total Protein (6.6-8.7) g/dL Albumin (3.5-5.2) g/dL Globulin (1.3-4.6) g/dL Urine Color Yellow (Yellow) Urine Appearance Clear (CLEAR) Urine pH 5.0 (5-7) Ur Specific Gravit y 1.020 (1.005-1.030) Urine Protein Neg (Negative) Urine Glucose (UA) Norm (Normal) Urine Ketones Negative (Negative) Urine Blood Neg (Negative) Urine Nitrate Negative (Negative) Urine Bilirubin Neg (Negative) Urine Urobilinogen Norm (Negative) mg/dL Ur Leukocyte Dede ase Negative (Negative) SARS-CoV-2 Ag (Rap id) Negative (Negative) Discharge Plan Discharge Patient Disposition: Admitted As Inpatient Clinical Impression: Central cord synd/C5-C7, Central cord synd/C1-C4 Condition: Stable Coding Level of Care Code ED Bi Consultant for Chg Fwd Exam Comprehensive Documented by User: Dayna Araya MD 08/22/20 11:44 HPI - Neck Pain/Injury General: Chief Complaint: Neuro Symptoms/Deficit Stated Complaint: Neck pain Time Seen by Provider: 08/22/20 10:02 PFS ED PFSH: Medical History COPD (chronic obstructive pulmonary disease) Left testicular pain Lower urinary tract symptoms (LUTS) Retractile testis Surgical History S/P hip arthroscopy Family History Mother No problems noted. Father , 45-Cancer Cancer Social History Smoking and tobacco status: current every day smoker Alcohol intake: current Alcohol intake frequency: 3 or more drinks per day Marital status: Current occupational status: disabled History of recent travel: No Course ED course: I saw this patient with DIPESH Woodruff. I also spoke with Dr. Young about this patient. He is requesting to have the patient admitted for preop for surgery tomorrow. The patient has central cord syndrome that was diagnosed on a prior admission. He was followed up in the office today and worsening so he plans to proceed to surgery. The patient also has a history of alcohol use but tells me he has not had any alcohol since being in the hospital the last time. He otherwise has not had any medical complaints. He has right upper extremity weakness and right and to some degree left lower extremity weakness as well. He has been having some bowel incontinence. No fevers, cough. He did have one episode of diarrhea yesterday. Dr. Cohen will consult on him from a medical standpoint. Preop labs and EKG have been done in the ER. Rapid Covid was sent for preop as well. Vital Signs: Vital signs: Vital Signs Temperature 96.9 F L 08/22/20 10:02 Pulse Rate 110 H 08/22/20 10:19 Respiratory Rate 18 08/22/20 10:19 Blood Pressure 112/84 08/22/20 10:19 Pulse Oximetry 95 08/22/20 10:19 MDM - Neck Pain/Injury Lab Data: Labs: Lab Results 08/22/20 08/22/20 08/22/20 Range/Units 10:40 10:40 10:40 WBC 6.7 (4.0-10.0) 10^3/ uL RBC 4.94 (4.1-5.3) 10^6/u L Hgb 15.7 (11.7-16.6) g/dL Hct 46.4 (42.0-52.0) % MCV 93.9 (80-94) fL MCH 31.8 (28.0-34.0) pg MCHC 33.8 (30.0-36.0) g/dL RDW 11.5 L (12.1-15.1) % Plt Count 462 H (130-400) 10^3/c mm MPV 9.0 (7.4-10.4) fL Neut % (Auto) 49.3 % Lymph % (Auto) 39.3 % Cataño % (Auto) 8.4 % Eos % (Auto) 2.0 % Baso % (Auto) 0.8 % Neut # (Auto) 3.29 (1.8-7.7) 10^3/u L Lymph # (Auto) 2.6 (0.8-4.8) 10^3/u L Cataño # (Auto) 0.6 (0.2-0.9) 10^3/u L Eos # (Auto) 0.1 (0.0-0.8) 10^3/u L Baso # (Auto) 0.1 (0.0-0.1) 10^3/u L Nucleated RBC % (a uto) 0 % Nucleated RBCs # 0.0 /100WBC PT 12.70 (12.1-14.9) SECO NDS INR 0.93 (0.8-1.2) APTT 27.6 (23.9-36.7) SECO NDS Sodium 136 (136-145) mmol/L Potassium 3.7 (3.5-5.1) mmol/L Chloride 100 (98-107) mmol/L Carbon Dioxide 28 (22-29) mmol/L Anion Gap 11.7 (5-19) BUN 10 (6-20) mg/dL Creatinine 0.6 L (0.7-1.2) mg/dL GFR Calculation 139.4 H (90-130) mL/min Glucose 156 H (65-115) mg/dL Calculated Osmolal ity 284 L (285-295) mOsm/k g Calcium 9.3 (8.5-10.5) mg/dL Total Bilirubin 0.4 (0.15-1.2) mg/dL AST 22 (0-40) U/L ALT 43 H (0-41) U/L Alkaline Phosphata se 166 H (40-130) IU/L Total Protein 6.7 (6.6-8.7) g/dL Albumin 4.3 (3.5-5.2) g/dL Globulin 2.4 (1.3-4.6) g/dL Urine Color (Yellow) Urine Appearance (CLEAR) Urine pH (5-7) Ur Specific Gravit y (1.005-1.030) Urine Protein (Negative) Urine Glucose (UA) (Normal) Urine Ketones (Negative) Urine Blood (Negative) Urine Nitrate (Negative) Urine Bilirubin (Negative) Urine Urobilinogen (Negative) mg/dL Ur Leukocyte Dede ase (Negative) SARS-CoV-2 Ag (Rap id) (Negative) 08/22/20 08/22/20 Range/Units 10:40 10:56 WBC (4.0-10.0) 10^3/ uL RBC (4.1-5.3) 10^6/u L Hgb (11.7-16.6) g/dL Hct (42.0-52.0) % MCV (80-94) fL MCH (28.0-34.0) pg MCHC (30.0-36.0) g/dL RDW (12.1-15.1) % Plt Count (130-400) 10^3/c mm MPV (7.4-10.4) fL Neut % (Auto) % Lymph % (Auto) % [place]ata[place] % (Auto) % Eos % (Auto) % Baso % (Auto) % Neut # (Auto) (1.8-7.7) 10^3/u L Lymph # (Auto) (0.8-4.8) 10^3/u L Cata[place] # (Auto) (0.2-0.9) 10^3/u L Eos # (Auto) (0.0-0.8) 10^3/u L Baso # (Auto) (0.0-0.1) 10^3/u L Nucleated RBC % (a uto) % Nucleated RBCs # /100WBC PT (12.1-14.9) SECO NDS INR (0.8-1.2) APTT (23.9-36.7) SECO NDS Sodium (136-145) mmol/L Potassium (3.5-5.1) mmol/L Chloride (98-107) mmol/L Carbon Dioxide (22-29) mmol/L Anion Gap (5-19) BUN (6-20) mg/dL Creatinine (0.7-1.2) mg/dL GFR Calculation (90-130) mL/min Glucose (65-115) mg/dL Calculated Osmolal ity (285-295) mOsm/k g Calcium (8.5-10.5) mg/dL Total Bilirubin (0.15-1.2) mg/dL AST (0-40) U/L ALT (0-41) U/L Alkaline Phosphata se (40-130) IU/L Total Protein (6.6-8.7) g/dL Albumin (3.5-5.2) g/dL Globulin (1.3-4.6) g/dL Urine Color Yellow (Yellow) Urine Appearance Clear (CLEAR) Urine pH 5.0 (5-7) Ur Specific Gravit y 1.020 (1.005-1.030) Urine Protein Neg (Negative) Urine Glucose (UA) Norm (Normal) Urine Ketones Negative (Negative) Urine Blood Neg (Negative) Urine Nitrate Negative (Negative) Urine Bilirubin Neg (Negative) Urine Urobilinogen Norm (Negative) mg/dL Ur Leukocyte Dede ase Negative (Negative) SARS-CoV-2 Ag (Rap id) Negative (Negative) Discharge Plan Discharge Patient Disposition: Admitted As Inpatient Clinical Impression: Central cord synd/C5-C7, Central cord synd/C1-C4 Condition: Stable Coding Level of Care Code ED Bi Consultant for Chg Fwd Exam Comprehensive
--- NOTE | 2020-08-22 10:18 | XR_ITS ---
WS: [id number] Portable AP upright chest, 08/22/2020 Clinical Data: admission; surgery clearance Comparison: Portable chest, 08/11/2020. Findings: No nodules or masses are seen. The heart is normal. The pulmonary vascularity is not increa sed. No pneumonia or pneumothorax is seen. The aortic arch and descending aorta show mild tortuosity. There are small pleural effusions. Small old granulomas are seen throughout the lungs. There are old fractures of the right first through eighth ribs. There is a healed fracture of the midshaft of the right clavicle. There is a calcification above the left greater tuberosity which may represent calcif ic bursitis or tendinitis.. XR/XR chest 1V portable [id number] Impression: 1. Atherosclerosis and old granulomatous disease.. 2. Old right rib fractures. 3. Small bilateral effusions.
--- NOTE | 2020-08-22 10:19 | ECG_ITS ---
[facility] Test Date: 2020-08-22 Pat Name: Spenser Lunsford Department: Room: Gender: Male Telephone Claims Representative: : 1965 Requested By: Yuly Shah Order Number: [id number] Reading MD: MOMO WHITE Measurements Intervals [place] Rate: 110 P: 79 FL: 124 QRS: 57 QRSD: 88 T: 110 QT: 341 QTc: 461 Interpretive Statements SINUS TACHYCARDIA POSSIBLE LEFT ATRIAL ENLARGEMENT [-0.1mV P WAVE IN V1/V2] NONSPECIFIC T-WAVE ABNORMALITY ABNORMAL RHYTHM ECG Compared to ECG 08/03/2020 05:42:27 Sinus rhythm no longer present T-wave abnormality still present Electronically Signed On 08-22-2020 20:30:46 LOAD MANAGER by MOMO WHITE [id number]
--- NOTE | 2020-08-22 10:49 | PC.PHAR ---
pt states that his 8 year old and 12 year old daughters help him with his medications-pt states the medications we went over are the medications that he is taking-pt states he ran out of his cyclobenzaprine a few days ago-pt states he doesnt think that he got the thera tabs-pt states he hasnt been taking the flomax for 2 weeks or so because it makes him pee to much-ext med history shows quetiapine 50mg hs was filled on 06/28/2020 30d/s pt states the took 100mg on 08/21/2019-pt states he takes prn
[2020-08-22 10:50] LABS: Basophils # 0.1 10^3/uL (0.0-0.1); Basophils % 0.8 %; Eosinophils # 0.1 10^3/uL (0.0-0.8); Hematocrit 46.4 % (42.0-52.0); Hemoglobin 15.7 g/dL (11.7-16.6); Lymphocytes # 2.6 10^3/uL (0.8-4.8); Lymphocytes % 39.3 %; Mean Corpuscular HGB Conc 33.8 g/dL (30.0-36.0); Mean Corpuscular Hemoglobin 31.8 pg (28.0-34.0); Mean Corpuscular Volume 93.9 fL (80-94); Monocytes # 0.6 10^3/uL (0.2-0.9); Monocytes % 8.4 %; Neutrophils # 3.29 10^3/uL (1.8-7.7); Neutrophils % 49.3 %; Nucleated Red Blood Cells % 0 %; Platelet Count 462 10^3/cmm (130-400); Red Blood Count 4.94 10^6/uL (4.1-5.3); Red Cell Distribution Width 11.5 % (12.1-15.1); White Blood Count 6.7 10^3/uL (4.0-10.0)
[2020-08-22 11:07] LABS: INR 0.93 (0.8-1.2)
[2020-08-22 11:08] LABS: Partial Thromboplastin Time 27.6 SECONDS (23.9-36.7)
[2020-08-22 11:09] LABS: Alanine Aminotransferase 43 U/L (0-41); Albumin Level 4.3 g/dL (3.5-5.2); Alkaline Phosphatase 166 IU/L (40-130); Anion Gap 11.7 (5-19); Aspartate Amino Transferase 22 U/L (0-40); Blood Urea Nitrogen 10 mg/dL (6-20); Calcium 9.3 mg/dL (8.5-10.5); Carbon Dioxide 28 mmol/L (22-29); Chloride 100 mmol/L (98-107); Globulin 2.4 g/dL (1.3-4.6); Glomerular Filtration Rate 139.4 mL/min (90-130); Glucose 156 mg/dL (65-115); Osmolality Calculated 284 mOsm/kg (285-295); Potassium 3.7 mmol/L (3.5-5.1); Sodium 136 mmol/L (136-145); Total Bilirubin 0.4 mg/dL (0.15-1.2); Total Protein 6.7 g/dL (6.6-8.7)
[2020-08-22 11:10] LABS: Add Urine Microscopic? NO
[2020-08-22] MEDS: sodium chloride 0.9% 1,000 ML 999 ML IV (11:13)
[2020-08-22 11:19] LABS: SARS Covid-2 Antigen Negative (Negative)
[2020-08-22 11:26] LABS: Bilirubin Urine Neg (Negative); Blood Urine Neg (Negative); Glucose Urine UA Norm (Normal); Ketones Urine Negative (Negative); Leukocyte Esterase Urine Negative (Negative); Nitrate Urine Negative (Negative); Protein Urine Neg (Negative); Urine Appearance Clear (CLEAR); Urine Color Yellow (Yellow); Urobilinogen Urine Norm (Negative)
--- NOTE | 2020-08-22 11:54 | PC.NURSE ---
Helped into bed from wheelchair, gave warm blankets
--- NOTE | 2020-08-22 12:23 | PC.NURSE ---
COVID test Negative
--- NOTE | 2020-08-22 12:29 | P.CONIM_ITS ---
Providers/Reason For Consult Consulting Physican/Specialty*: Mina Cohen MD Reason for Consult*: Medical Management Requesting Physcian: Dr. Young Primary Care Provider: Edward Garcia DO History of Present Illness History of Present Illness Spenser Lunsford is a 55 year old male who was recently admitted and discharged from the hospital on August 13 for central cord syndrome. At that time he was evaluated by orthopedic spine surgery, and they agreed that he had showed signi ficant stenosis at C3, through C6 and would follow-up in clinic. Patient reports since discharge he has not been able to ambulate. He is occasionally incontinent of stool. He has weakness most pronounced in his right lower extremity and right upper extremity. He has significant paresthesias. He was seen today in the orthopedic office and directed to the ER for admission for possible surgery tomorrow. He denies any history of Covid. He denies any exposure to Covid. Patient reports no fevers. He denies any shortness of breath or cough. He reports he is used no drugs or alcohol in over a month. He denies any significant withdrawal symptoms. In the emergency department he was screened with routine labs and urinalysis, showing no acute concerns. Review of Systems General: Reports: 10 or more systems reviewed and unremarkable except in HPI and below Const: Denies: fever(s) Eyes: Denies: change in vision ENMT: Denies: throat pain Card: Denies: chest pain Resp: Denies: dyspnea GI: Reports: fecal incontinence and change in bowel habits; Denies: abdominal pain : Reports: difficulty starting urination Musc: Reports: neck pain and back pain Skin/Breast: Reports: rash Neuro: Denies: headache(s) Psych: Reports: anxiety Endo: Denies: polyuria Soto/Lymph: Denies: easy bruising All/Imm: Denies: urticaria Meds/Allergies Home Medications and Allergies Home Medications Medication Instructions Recorded Confirmed Last Taken Type artificial tears(hypromellose) 1 drp EYE-BOTH Q4H PRN 14 Days #1 08/13/20 08/22/20 Unknown Rx [Isopto Tears] ml duloxetine 30 mg PO DAILY 14 Days #14 cap 08/13/20 08/22/20 08/20/20 Rx multivitamin with folic acid 1 tab PO DAILY #0 tab 08/13/20 08/22/20 Unknown Rx [Thera] pantoprazole 40 mg PO DAILY 30 Days #30 tab 08/13/20 08/22/20 08/21/20 Rx alprazolam 0.25 mg PO BID PRN 08/22/20 08/22/20 08/20/20 History aspirin 81 mg PO QAM 08/22/20 08/22/20 08/21/20 History cyclobenzaprine 5 mg PO TID PRN 08/22/20 08/22/20 Unknown History hydrocodone-acetaminophen 1 tab PO Q8H PRN 08/22/20 08/22/20 08/21/20 History quetiapine 50 mg PO BEDTIME 08/22/20 08/22/20 08/21/20 History see pharmacy comment tamsulosin 0.4 mg PO BEDTIME 08/22/20 08/22/20 Unknown History Allergies Allergy/AdvReac Type Severity Reaction Status Date / Time No Known Allergies Allergy Verified 08/22/20 10:45 PFSH Acute PFSH: Medical History (Updated 08/22/20 @ 12:42 by Mina Cohen MD) Alcoholism Central cord synd/C5-C7 COPD (chronic obstructive pulmonary disease) Degenerative arthritis of spine Depression Drug use GERD (gastroesophageal reflux disease) Gout Left testicular pain Lower urinary tract symptoms (LUTS) Retractile testis Surgical History S/P hip arthroscopy Family History Mother No problems noted. Father , 45-Cancer Cancer Social History Smoking and tobacco status: current every day smoker Alcohol intake: current Alcohol intake frequency: 3 or more drinks per day Marital status: Current occupational status: disabled History of recent travel: No Vitals/I&O/Wt Last Vital Signs Temp 96.9 F L 08/22/20 10:02 Pulse 95 08/22/20 12:22 Resp 18 08/22/20 12:22 BP 126/94 08/22/20 12:22 Pulse Ox 95 08/22/20 12:22 Weight last 48 hrs Weight 95.254 kg Physical Exam Narrative: EXAM NARRATIVE: General exam is a conversant white male, in no distress. Urinal is by the bedside with a small amount of urine HEENT: Pupils equally round. Oropharynx clear. Tongue midline. Neck is supple no lymphadenopathy or thyromegaly Cardiovascular regular rate and rhythm without murmur. No S3 or S4 Lungs clear no wheezing or crackles Abdomen is soft, positive bowel sounds. No obvious organomegaly deferred Extremities no cyanosis clubbing or edema, cap refill brisk Skin seborrheic dermatitis noted over face, classic findings Neurologic: Diminished strength right upper and right lower extremity. Subjective paresthesias to both. Deep diminished range of motion with extension of fingers on the right, and dorsiflexion of the foot on the right. I could not demonstrate saddle paresthesia/decreased sensation on exam. I did not check a rectal. Data Other Data: Other data: EKG demonstrates sinus rhythm, normal axis, rate of 110, no acute changes Chest x-ray reviewed by me no infiltrate, granulomatous disease. Cervical spine CT DJD C3-C7, no fracture INR 0.93 ALT 43, alk phos 166, bilirubin normal Albumin 4.3 Urinalysis normal Rapid Covid negative A&P Assessment and plan (1) Central cord synd/C5-C7: Patient nonambulatory, complaining of fecal incontinence and certainly has weakness on the right side of his body. Previous MRI of the brain demonstrates no previous CVA. Physical findings indicate a central cord syndrome noted on MRI. Orthopedic spine surgery has admitted the patient for possible surgery tomorrow. I do not see any direct contraindications for surgery. Will need physical therapy and Occupational Therapy consults following surgery. Status: Acute (2) Drug use: Patient reports he has been drug-free for the last month Status: Inactive (3) Alcoholism: Patient reports he has been alcohol free for the last month. Monitor for withdrawal but I would not expect it at this point. Add thiamine, multivitamin Status: Acute (4) GERD (gastroesophageal reflux disease): Continue Protonix Status: Inactive (5) Tobacco dependency: Encourage abstinence Status: Acute Additional A&P Information Depression, continue duloxetine Chronic pain. Continue hydrocodone. Seborrheic dermatitis Full code SCDs for DVT prophylaxis. Holding anticoagulation as surgery is planned Consult Attestations Medical Necessity Statement: As per primary Time Spent in Patient Care: Greater than 35 minutes Coding Level of Care Code Acute Conference Service Coordinator for Chg Fwd Diagnoses Central cord synd/C5-C7 Drug use F19.90 Alcoholism F10.20 GERD (gastroesophageal reflux disease) K21.9 Tobacco dependency F17.200
[2020-08-22] MEDS: HYDROcodone-acetaminophen 5-325 mg Tablet 1 TAB PO (18:05)
[2020-08-22] MEDS: thiamine 100 mg Tablet PO (18:05)
[2020-08-22] MEDS: cyclobenzaprine 10 mg Tablet 5 MG PO (21:18)
[2020-08-22] MEDS: quetiapine 25 mg Tablet 50 MG PO (21:18)
[2020-08-22] MEDS: ALPRAZolam 0.25 mg Tablet PO (21:18)
[2020-08-23] VITALS (20 sets, daily range): BP systolic 117–152; BP diastolic 71–94; PULSE 82–115; RESP 16–18; TEMP 36.3–37.8; O2SAT 93–99
--- NOTE | 2020-08-23 | XR_ITS ---
WS: [id number] C-ARM RADIOGRAPHS CERVICAL SPINE; 3 IMAGES HISTORY: OR PICS COMPARISON: 08/22/2020. Intraoperative imaging during anterior spinal fusion extending from C3 to C6. Interbody spacers at C3 -4, C4-5 and C5-6. Alignment appears satisfactory. Patient is intubated. XR/XR cervical spine 1ort [id number] IMPRESSION: Intraoperative imaging during anterior cervical fusion with interbody spacers f rom C3 to C6.
--- NOTE | 2020-08-23 | SCC_ITS ---
Procedure Done: 1. Anterior diskectomy C3/4 2. Anterior discectomy C5/6 3. Anterior discectomy C/6/7 4. Insertion of cage C3/4 5. Insertion of Cage C4/5 6. Insertion of cage C6/7 7. Instrumentation with anterior plate from C3-C6 8. Use of allograft 65.4 seconds of fluoroscopic guidance, for a cumulative dose of 5.43 mGy, was provided to Dr. Young by the radiology department. C-arm images of the cervical spine were saved for the patient's permanent record. JOHANA
--- NOTE | 2020-08-23 08:03 | P.HP_ITS ---
Providers/Chief Complaint Admitting Physician: Meet Young DO Primary Care Provider: Edward Garcia DO Chief Complaint: Neck pain History of Present Illness Spenser Lunsford is a 55 year old male who was recently admitted and discharged from the hospital on August 13 for central cord syndrome. At that time he was evaluated by orthopedic spine surgery, and they agreed that he had showed significant stenosis at C3, through C6 and would follow-up in clinic. Patient reports since discharge he has not been able to ambulate. He is occasionally incontinent of stool. He has weakness most pronounced in his right lower extremity and right upper extremity. He has significant paresthesias. He was seen today in the orthopedic office and directed to the ER for admission for possible surgery tomorrow. He denies any history of Covid. He denies any exposure to Covid. Patient reports no fevers. He denies any shortness of breath or cough. He reports he is used no drugs or alcohol in over a month. He denies any significant withdrawal symptoms. In the emergency department he was screened with routine labs and urinalysis, showing no acute concerns. Review of Systems General: Reports: 10 or more systems reviewed and unremarkable except in HPI and below Const: Denies: fever(s) or chills Eyes: Denies: change in vision or blurry vision ENMT: Denies: throat pain Card: Denies: chest pain, palpitations, irregular heart rhythm, lightheadedness, syncope or dyspnea on exertion Resp: Denies: dyspnea, productive cough or pain on inspiration GI: Reports: fecal incontinence and change in bowel habits; Denies: abdominal pain, nausea, vomiting, heartburn or diarrhea : Reports: difficulty starting urination; Denies: difficulty urinating or dysuria Musc: Reports: neck pain, back pain, limited range of motion and muscle weakness; Denies: joint pain Skin/Breast: Reports: rash Neuro: Reports: numbness in extremities, weakness in extremities, difficulty walking and frequent falls; Denies: headache(s) Psych: Reports: anxiety Endo: Denies: polyuria Soto/Lymph: Denies: easy bruising All/Imm: Denies: urticaria Medications/Allergies Home Medications Medication Instructions Recorded Confirmed Last Taken Type artificial tears(hypromellose) 1 drp EYE-BOTH Q4H PRN 14 Days #1 08/13/20 08/22/20 Unknown Rx [Isopto Tears] ml duloxetine 30 mg PO DAILY 14 Days #14 cap 08/13/20 08/22/20 08/20/20 Rx multivitamin with folic acid 1 tab PO DAILY #0 tab 08/13/20 08/22/20 Unknown Rx [Thera] pantoprazole 40 mg PO DAILY 30 Days #30 tab 08/13/20 08/22/20 08/21/20 Rx Bone Growth Stimulator [id number] #1 ea 08/22/20 08/22/20 Unknown Rx alprazolam 0.25 mg PO BID PRN 08/22/20 08/22/20 08/20/20 History aspirin 81 mg PO QAM 08/22/20 08/22/20 08/21/20 History cyclobenzaprine 5 mg PO TID PRN 08/22/20 08/22/20 Unknown History hydrocodone-acetaminophen 1 tab PO Q8H PRN 08/22/20 08/22/20 08/21/20 History quetiapine 50 mg PO BEDTIME 08/22/20 08/22/20 08/21/20 History see pharmacy comment tamsulosin 0.4 mg PO BEDTIME 08/22/20 08/22/20 Unknown History Allergies Allergy/AdvReac Type Severity Reaction Status Date / Time No Known Allergies Allergy Verified 08/22/20 10:45 PFSH Acute PFSH: Medical History (Updated 08/22/20 @ 12:42 by Mina Cohen MD) Alcoholism Central cord synd/C5-C7 COPD (chronic obstructive pulmonary disease) Degenerative arthritis of spine Depression Drug use GERD (gastroesophageal reflux disease) Gout Left testicular pain Lower urinary tract symptoms (LUTS) Retractile testis Surgical History S/P hip arthroscopy Family History Mother No problems noted. Father , 45-Cancer Cancer Social History Smoking and tobacco status: current every day smoker Alcohol intake: current Alcohol intake frequency: 3 or more drinks per day Marital status: Current occupational status: disabled History of recent travel: No Vitals/I&O/Wt Last Vital Signs Temp 97.8 F 08/23/20 07:22 Pulse 89 08/23/20 07:22 Resp 16 08/23/20 07:22 BP 138/88 08/23/20 07:22 Pulse Ox 96 08/23/20 07:22 08/22/20 08/23/20 08/23/20 22:59 06:59 14:59 Output Total 275 / 275 200 / 475 Balance -275 / 725 -200 / 525 Weight last 48 hrs Weight 210 lb Physical Exam Narrative: EXAM NARRATIVE: EXAM NARRATIVE: CONSTITUTIONAL: The patient is normal appearing, well groomed, cooperative and in no apparent distress. GENERAL: Patient in no acute distress. Well nourished. CARDIAC: Regular rate and rhythm. CHEST: Normal inspirator effort, normal respiratory rate. ABDOMEN: Soft and non-tender. SKIN: Clear, warm and intact. NEURO?PSYCH: The patient is alert and oriented to person, place and time. NEUROVASCULAR: Upper Extremity Sensory - SILT. Motor Strength: Shoulder abduction C5: 5/5; Wrist extension C6: 5/5; Elbow extension C7: 5/5; Hand Information Technology Security Analyst C8: 5/5; Finger abduction T1: 5/5. Radial/ Ulnar/ Median in intact Lower Extremity Sensory - SILT. Motor Strength: Hip flexion L2/3; Ant/inner thigh: 5/5; Hip adduction L2/3: 5/5; Knee extension L4 Lat thigh: 5/5; Toe dorsiflexion L5: 5/5; Ankle dorsiflexion L5/ S1: 5/5; Plantar flexion S1: 5/5. DTR: Triceps 2+; Brachioradialis 2+; Patellar 2+; Achilles 2+. Right side 3/5 MUSCULOSKELETAL: UPPER EXTREMITIES: The patient had full active ROM in fingers, wrist, elbow, and shoulder. The patient demonstrated ability to fully flex/extend/abduct/adduct fingers, make ok sign, cross 2nd/3rd digits, extend 1st digit fully.. Radial pulse 2+, CR<2 seconds. LOWER EXTREMITIES: Pt has full, active ROM of toes, ankle, knee, and hip. Dorsalis pedis & posterior tibialis pulses 2+, CR<2 seconds. SPINE: Skin warm, dry, intact. Data : 08/22/20 10:40 08/22/20 10:40 A&P Assessment and plan (1) Central cord synd/C1-C4: Status: Acute (2) Central cord synd/C5-C7: Patient is admitted to the hospital because he cannot take care of himself at home. He generally sleeps on the floor because he cannot get into bed and no one is there to help him. He is having bowel and bladder issues Magno getting worse. This point my plan is to do a C3-4 C4-5 C5-6 ACDF. He will likely need to go to some sort of a halfway or rehab facility. He will need a social service consult. Status: Acute Attestations Medical Necessity Statement*: Patient is unable to take care of himself. He will likely need to go to rehab or halfway after his surgery today. Which would likely require 2 more nights Coding Level of Care Code Acute Street Railway Line Installer for Chg Fwd Diagnoses Central cord synd/C1-C4 S14.121A Central cord synd/C5-C7
[2020-08-23] MEDS: HYDROcodone-acetaminophen 5-325 mg Tablet 1 TAB PO (08:35)
--- NOTE | 2020-08-23 08:54 | PM.PN ---
Subjective Subjective: Interval history: Spenser reports he is doing okay. He is eager to have surgery. No concerns last night. Reports his right upper extremity and right lower extremity are no better. Medications: Reviewed: Yes Vitals/I&O/Wt Last Vital Signs Temp 97.8 F 08/23/20 07:22 Pulse 89 08/23/20 07:22 Resp 16 08/23/20 07:22 BP 138/88 08/23/20 07:22 Pulse Ox 96 08/23/20 07:22 08/22/20 08/23/20 08/23/20 22:59 06:59 14:59 Output Total 275 / 275 200 / 475 250 / 250 Balance -275 / 725 -200 / 525 -250 / -250 Weight last 48 hrs Weight 95.254 kg Physical Exam Narrative: EXAM NARRATIVE: General exam is no apparent distress. 1 temperature of 100.1 was noted overnight Neck is supple no lymphadenopathy or thyromegaly Cardiovascular regular rate and rhythm without murmur. No S3 or S4 Lungs clear no wheezing or crackles Abdomen is soft, positive bowel sounds. No obvious organomegaly Extremities no cyanosis clubbing or edema, cap refill brisk Skin seborrheic dermatitis noted over face, overall unchanged Neurologic: Diminished strength right upper and right lower extremity. Subjective paresthesias to both. Deep diminished range of motion with extension of fingers on the right, and dorsiflexion of the foot on the right. Data : 08/22/20 10:40 08/22/20 10:40 A&P Assessment and plan (1) Central cord synd/C5-C7: Patient nonambulatory, complaining of fecal incontinence and certainly has weakness on the right side of his body. Previous MRI of the brain demonstrates no previous CVA. Physical findings indicate a central cord syndrome noted on MRI. Symptoms of this have been present for quite some time, weeks. Orthopedic spine surgery has admitted the patient for surgery today I do not see any direct contraindications for surgery. Temperature elevation was noted, but no evidence currently of infection. We will continue to monitor. Will need physical therapy and Occupational Therapy consults following surgery. Status: Acute (2) Drug use: Patient reports he has been drug-free for the last month Status: Inactive (3) Alcoholism: Patient reports he has been alcohol free for the last month. Monitor for withdrawal but I would not expect it at this point. No evidence of withdrawal today. Add thiamine, multivitamin Status: Acute (4) GERD (gastroesophageal reflux disease): Continue Protonix Status: Inactive (5) Tobacco dependency: Encourage abstinence Status: Acute Additional A&P Information Depression, continue duloxetine Chronic pain. Continue hydrocodone. Seborrheic dermatitis Full code SCDs for DVT prophylaxis. Holding anticoagulation as surgery is planned Attestations Medical Necessity Statement*: Needs continued hospitalization for definitive treatment of central cord syndrome with paresis. Coding Level of Care Code Acute Media Manager for Chg Fwd Diagnoses Central cord synd/C5-C7 Drug use F19.90 Alcoholism F10.20 GERD (gastroesophageal reflux disease) K21.9 Tobacco dependency F17.200
[2020-08-23] MEDS: sodium chloride 0.9% 1,000 ML 75 ML IV ×2 (11:45→21:59)
--- NOTE | 2020-08-23 13:30 | PC.NURSE ---
Patient left the floor with surgery at 1315.
--- NOTE | 2020-08-23 13:33 | W.PM.OPSUD ---
Surgery/Procedure H&P Update DATE OF PROCEDURE: August 23, 2020 DATE H&P PERFORMED: 08/23/20 H&P UPDATE INFORMATION: I have reviewed H&P completed within last 30 days and I have examined patient prior to procedure PLANNED PROCEDURE: Operation Date: 08/23/20 12:30 Proposed Procedures p Anterior Cervical Discectomy & Fusion ACDF(Not Applicable) - Meet Young DO
--- NOTE | 2020-08-23 13:51 | P.ANESASSM_ITS ---
Pre-Anesthetic Assessment Pre-Anesthetic Assessment: Height/Weight: Height 1.75 m Weight 95.254 kg Temp Pulse Resp BP Pulse Ox 97.7 F 82 16 125/85 93 08/23/20 11:49 08/23/20 11:49 08/23/20 11:49 08/23/20 11:49 08/23/20 11:49 Preop Diagnosis: Central cord syndrome Proposed Procedure: Operation Date: 08/23/20 12:30 Proposed Procedures p Anterior Cervical Discectomy & Fusion ACDF(Not Applicable) - Meet Young, DO Was Beta Caro taken within 24 hours: N/A Social: Social History: Alcohol and Tobacco Exam: Pre-Anes Outpt Exam: alert, oriented x 3 and regular rate & rhythm Additional Exam Findings (including area of procedure): rhonchi Airway: Submandibular: WNL Cervical ROM: WNL MP: 2 Dentition: Chipped and Loose Additional comments: Very poor dentitioin, multiple missing and chipped, loose Pulmonary: Pulmonary: COPD Musc/skel: Musc/skel: Weakness Comments: Right hand/leg weakness Neuropsych: Neuropsych: Anxiety, Depression and Neuropathy Anesthetic Plan: ASA status: 3 Other: A.line Risk of > 500 ml blood loss (7ml/kg in children): No Meds/Allergies Current Medications: Current Medications Generic Name Dose Route Start Last Admin Trade Name Freq PRN Reason Stop Dose Admin Hydrocodone Bitart /Acetaminophen 1 tab 08/22/20 16:36 08/23/20 08:35 Hydrocodone-Acet aminophen 5-325 Mg Tablet PO 1 tab Q4H PRN Administration PAIN Alprazolam 0.25 mg 08/22/20 16:36 08/22/20 21:18 Alprazolam 0.25 Mg Tablet PO 0.25 mg BID PRN Administration Anxiety Cyclobenzaprine HC l 5 mg 08/22/20 16:39 08/22/20 21:18 Cyclobenzaprine 10 Mg Tablet PO 5 mg TID PRN Administration Muscle Spasm Duloxetine HCl 30 mg 08/23/20 09:00 08/23/20 08:33 Duloxetine 30 Mg Capsule PO Not Given DAILY CHARBEL Sodium Chloride 1,000 mls @ 75 ml s/hr 08/23/20 09:00 08/23/20 11:45 Sodium Chloride 0.9% IV 75 mls/hr .[id number] CHARBEL Administration Multivitamins Ther apeutic 1 tab 08/23/20 09:00 08/23/20 08:33 Multivitamin The rapeutic Tablet PO Not Given DAILY CHARBEL Pantoprazole Sodiu m 40 mg 08/23/20 09:00 08/23/20 08:[address] 40 Mg Tablet PO Not Given DAILY CHARBEL Quetiapine Fumarat e 50 mg 08/22/20 21:00 08/22/20 21:18 Quetiapine 25 Mg Tablet PO 50 mg BEDTIME CHARBEL Administration Tamsulosin HCl 0.4 mg 08/22/20 21:00 08/22/20 21:19 Tamsulosin 0.4 M g Capsule PO Not Given BEDTIME CHARBEL PFSH Anesthesia PFSH: Medical History (Updated 08/22/20 @ 12:42 by Mina Cohen MD) Alcoholism Central cord synd/C5-C7 COPD (chronic obstructive pulmonary disease) Degenerative arthritis of spine Depression Drug use GERD (gastroesophageal reflux disease) Gout Left testicular pain Lower urinary tract symptoms (LUTS) Retractile testis Surgical History S/P hip arthroscopy Family History Mother No problems noted. Father , 45-Cancer Cancer Social History Smoking and tobacco status: current every day smoker Alcohol intake: current Alcohol intake frequency: 3 or more drinks per day Marital status: Current occupational status: disabled History of recent travel: No Data Anesthesia CBC & Chem 7: 08/22/20 10:40 08/22/20 10:40 Other Labs: Laboratory Results - last 48 hr 08/22/20 08/22/20 08/22/20 10:40 10:40 10:40 WBC 6.7 RBC 4.94 Hgb 15.7 Hct 46.4 MCV 93.9 MCH 31.8 MCHC 33.8 RDW 11.5 L Plt Count 462 H MPV 9.0 Neut % (Auto) 49.3 Lymph % (Auto) 39.3 [place] % (Auto) 8.4 Eos % (Auto) 2.0 Baso % (Auto) 0.8 Neut # (Auto) 3.29 Lymph # (Auto) 2.6 [place] # (Auto) 0.6 Eos # (Auto) 0.1 Baso # (Auto) 0.1 Nucleated RBC % (auto) 0 Nucleated RBCs # 0.0 PT 12.70 INR 0.93 APTT 27.6 Sodium 136 Potassium 3.7 Chloride 100 Carbon Dioxide 28 Anion Gap 11.7 BUN 10 Creatinine 0.6 L GFR Calculation 139.4 H Glucose 156 H Calculated Osmolality 284 L Calcium 9.3 Total Bilirubin 0.4 AST 22 ALT 43 H Alkaline Phosphatase 166 H Total Protein 6.7 Albumin 4.3 Globulin 2.4 Urine Color Urine Appearance Urine pH Ur Specific [place] Urine Protein Urine Glucose (UA) Urine Ketones Urine Blood Urine Nitrate Urine Bilirubin Urine Urobilinogen Ur Leukocyte Esterase SARS-CoV-2 Ag (Rapid) 08/22/20 08/22/20 10:40 10:56 WBC RBC Hgb Hct MCV MCH MCHC RDW Plt Count MPV Neut % (Auto) Lymph % (Auto) [place] % (Auto) Eos % (Auto) Baso % (Auto) Neut # (Auto) Lymph # (Auto) [place] # (Auto) Eos # (Auto) Baso # (Auto) Nucleated RBC % (auto) Nucleated RBCs # PT INR APTT Sodium Potassium Chloride Carbon Dioxide Anion Gap BUN Creatinine GFR Calculation Glucose Calculated Osmolality Calcium Total Bilirubin AST ALT Alkaline Phosphatase Total Protein Albumin Globulin Urine Color Yellow Urine Appearance Clear Urine pH 5.0 Ur Specific [place] 1.020 Urine Protein Neg Urine Glucose (UA) Norm Urine Ketones Negative Urine Blood Neg Urine Nitrate Negative Urine Bilirubin Neg Urine Urobilinogen Norm Ur Leukocyte Esterase Negative SARS-CoV-2 Ag (Rapid) Negative Cardiac Studies: No Data to Display
[2020-08-23] MEDS: midazolam 1 mg/mL INJ 2 mL 2 MG IVP (13:56)
[2020-08-23] MEDS: sodium chloride 0.9% 1,000 ML 30 ML IV (14:12)
--- NOTE | 2020-08-23 15:21 | PC.RESP ---
Smoking Cessation information sent to patient.
[2020-08-23] MEDS: thrombin 5,000 unit SDV 5000 UNIT XX (15:44)
--- NOTE | 2020-08-23 16:13 | ANES.PROC ---
Anesthesia Procedures Procedure/Date: 08/23/20 Arterial Line: Time Out Performed: Yes Consent: requested by attending/covering physician, from patient, risks and benefits reviewed and patient agrees to proceed Size (Gauge): 20 Technique Used: guide wire technique Post-Procedure: dry sterile dressing placed Patient Tolerated Procedure: well Complications: none Site: right and radial Additional Comments: 3 attempts at right radial.
--- NOTE | 2020-08-23 18:43 | P.OP_ITS ---
Operative Report Date of procedure: August 23, 2020 Pre-op Diagnosis: Central cord syndrome Procedure Done: 1. Anterior diskectomy C3/4 2. Anterior discectomy C5/6 3. Anterior discectomy C/6/7 4. Insertion of cage C3/4 5. Insertion of Cage C4/5 6. Insertion of cage C6/7 7. Instrumentation with anterior plate from C3-C6 6. Use of allograft Surgeon: Meet Young Anesthesia: General Estimated blood loss (mL): 5 Condition: stable Disposition: PACU Procedure: 1. Anterior diskectomy C3/4 2. Anterior discectomy C5/6 3. Anterior discectomy C/6/7 4. Insertion of cage C3/4 5. Insertion of Cage C4/5 6. Insertion of cage C6/7 7. Instrumentation with anterior plate from C3-C6 6. Use of allograft Patient is brought to the operative suite after undergoing anesthesia was placed in the supine position all areas impingement well-padded neuro monitoring was attached. Patient was prepped and draped in normal sterile fashion. Skin incision made over the anterior neck. Skin was undermined retractors placed platysma's was split and then blunt dissection was made down to the anterior ce rvical spine. The C3-4 C4-5 C5-6 levels were identified under C-arm guidance. Retractors were placed attention was brought to the C3-4 level. The ossific spurs were taken down anteriorly. And then discectomy was performed using curette and high-speed bur. The Kerrison rongeur was also used to take down the osteophytes posteriorly and the posterior longitudinal ligament posteriorly is brought more to the right side because patient was having all right-sided symptoms. And had large disc herniation on this right side. The disc was identified posterior longitudinal ligament was taken down and the dura was identified and felt to be adequately decompressed the C4 nerve root was traced out the C3-4 foramen. And again felt to be adequately decompressed is also traced out the left side felt to be adequately decompressed. Attention was then brought to the size of the disc base. This was done by trialing lollipop retractors. The size 8 lollipop was used and then the size 8 cage was used and packed with osteoamp allograft bone. And then tamped into the C3-4 disc base. Next attention was brought to the C4-5 to space. The ossific spurs were taken down anteriorly. And then discectomy was performed using curette and high-speed bur. The Kerrison rongeur was also used to take down the osteophytes posteriorly and the posterior longitudinal ligament posteriorly is brought more to the right side because patient was having all right-sided symptoms. And had large disc herniation on this right side. The disc was identified posterior longitudinal ligament was taken down and the dura was identified and felt to be adequately decompressed the C5 nerve root was traced out the C4-5 foramen. And again felt to be adequately decompressed is also traced out the left side felt to be adequately decompressed. Attention was then brought to the size of the disc base. This was done by trialing lollipop retractors. The size 6 lollipop was used and then the size 6 cage was used and packed with osteoamp allograft bone. And then tamped into the C4/5 disc base. Next attention was brought to the C5/6 disk space. The ossific spurs were taken down anteriorly. And then discectomy was performed using curette and high-speed bur. The Kerrison rongeur was also used to take down the osteophytes posteriorly and the posterior longitudinal ligament posteriorly is brought more to the right side because patient was having all right-sided symptoms. And had large disc herniation on this right side. The disc was identified posterior longitudinal ligament was taken down and the dura was identified and felt to be adequately decompressed the C6 nerve root was traced out the C5/6 foramen. And again felt to be adequately decompressed is also traced out the left side felt to be adequately decompressed. Attention was then brought to the size of the disc base. This was done by trialing lollipop retractors. The size 6 lollipop was used and then the size 6 cage was used and packed with osteoamp allograft bone. And then tamped into the C5/6 disc base. Next the attention was brought to placing the anterior plate. AP lateral fluoroscopy ensured that the plate was in preposition. It was slightly to the right. 2 screws were placed at each level 2 screws at C3-C4 to a C5-C6. Screws were then locked in position. AP lateral fluoroscopy ensured that the hardware was in appropriate position. Wounds were irrigated and platysmas closed with 2- 0 Vicryl skin was closed with 2-0 Vicryl and Monocryl suture and skin glue. Patient was placed in a soft collar and transferred to the PACU in stable condition.
--- NOTE | 2020-08-23 20:03 | P.ANESPOST_ITS ---
Inpatient post-anesthesia follow up: Airway intact: Yes Vital signs: Temperature 97.8 F Pulse Rate [Monito r] 113 Pulse Rate 99 Respiratory Rate 18 Blood Pressure [Le ft Arm] 112/84 Blood Pressure 134/89 Pulse Oximetry 98 Oxygen Delivery Me thod Nasal Cannula Oxygen Flow Rate 3 Fraction of Inspir ed Oxygen Hydration adequate: Yes Nausea and vomiting: No Pain level: 3 Vinnie tional Comments: Sedated
[2020-08-23] MEDS: ALPRAZolam 0.25 mg Tablet PO (20:56)
[2020-08-23] MEDS: tamsulosin 0.4 mg Capsule PO (20:56)
[2020-08-23] MEDS: cyclobenzaprine 10 mg Tablet 5 MG PO (20:57)
[2020-08-23] MEDS: quetiapine 25 mg Tablet 50 MG PO (20:58)
--- NOTE | 2020-08-23 21:15 | SUR.PHASEI ---
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
--- NOTE | 2020-08-23 21:19 | SUR.PHASEI ---
1942 ALSO AT HANDOFF FLOOR NURSE INFORMED THERE WAS ATTEMTED CANO INSERTION IN OR AND ON 2ND ATTEMPT A COUDE WAS USED BUT RN WAS UNABLE TO CATH PT IN OR.
[2020-08-23] MEDS: ketorolac 30 mg/mL INJ IVP (21:51)
[2020-08-24] MEDS: ketorolac 30 mg/mL INJ IVP ×3 (02:29→17:11)
[2020-08-24] MEDS: HYDROcodone-acetaminophen 5-325 mg Tablet PO ×4 (03:27→21:04)
[2020-08-24] MEDS: enoxaparin 40 mg/0.4 mL Syringe SUBCUT (05:32)
[2020-08-24] MEDS: aspirin 81 mg EC Tablet PO (05:32)
[2020-08-24 06:13] LABS: Basophils % 0.2 %; Hematocrit 37.6 % (42.0-52.0); Hemoglobin 12.7 g/dL (11.7-16.6); Lymphocytes # 1.1 10^3/uL (0.8-4.8); Lymphocytes % 8.4 %; Mean Corpuscular HGB Conc 33.8 g/dL (30.0-36.0); Mean Corpuscular Hemoglobin 31.7 pg (28.0-34.0); Mean Corpuscular Volume 93.8 fL (80-94); Mean Platelet Volume 9.3 fL (7.4-10.4); Neutrophils # 10.61 10^3/uL (1.8-7.7); Nucleated Red Blood Cells % 0 %; Platelet Count 373 10^3/cmm (130-400); Red Blood Count 4.01 10^6/uL (4.1-5.3); Red Cell Distribution Width 11.1 % (12.1-15.1); White Blood Count 12.8 10^3/uL (4.0-10.0)
[2020-08-24 06:30] LABS: Alanine Aminotransferase 32 U/L (0-41); Albumin Level 3.6 g/dL (3.5-5.2); Alkaline Phosphatase 133 IU/L (40-130); Aspartate Amino Transferase 28 U/L (0-40); Blood Urea Nitrogen 14 mg/dL (6-20); Calcium 8.8 mg/dL (8.5-10.5); Carbon Dioxide 25 mmol/L (22-29); Chloride 104 mmol/L (98-107); Globulin 2.6 g/dL (1.3-4.6); Glucose 149 mg/dL (65-115); Osmolality Calculated 289 mOsm/kg (285-295); Sodium 138 mmol/L (136-145); Total Bilirubin 0.2 mg/dL (0.15-1.2); Total Protein 6.2 g/dL (6.6-8.7)
[2020-08-24 08:00] VITALS: BP 113/73; PULSE 93; RESP 17; TEMP 36.5; O2SAT 93
[2020-08-24] MEDS: duloxetine 30 mg Capsule PO (08:04)
[2020-08-24] MEDS: multivitamin therapeutic Tablet 1 TAB PO (08:04)
[2020-08-24] MEDS: docusate sodium 100 mg Capsule PO ×2 (08:04→17:11)
[2020-08-24] MEDS: pantoprazole DR 40 mg Tablet PO (08:04)
--- NOTE | 2020-08-24 09:09 | P.PN_ITS ---
Subjective Subjective: Interval history: patient doing well this am in good spirits currently working with Therapy already making significant improvements Vitals/I&O/Wt Last Vital Signs Temp 97.7 F 08/24/20 08:00 Pulse 93 08/24/20 08:00 Resp 17 08/24/20 08:00 BP 113/73 08/24/20 08:00 Pulse Ox 93 08/24/20 08:00 08/23/20 08/24/20 08/24/20 22:59 06:59 14:59 Intake Total 160 / 260 1540 / 1800 Output Total 5 / 255 1300 / 1555 200 / 200 Balance 155 / 5 240 / 245 -200 / -200 Weight last 48 hrs Weight 210 lb Physical Exam Narrative: EXAM NARRATIVE: pt standing with a walker. Improved movement of right hand Data : 08/24/20 05:40 08/24/20 05:40 A&P Additional A&P Information POD#1 C3/4,C4/5, C5/6 ACDF plan to keep working with therapy Social servis telehealth case manager eval Attestations Medical Necessity Statement*: need to work with therapy Procedures Arterial Line Size (Gauge): 20 Coding Level of Care Code Acute Order Processing Specialist for Chg [place]
[2020-08-24 12:00] VITALS: BP 163/83; PULSE 112; RESP 18; TEMP 36.8; O2SAT 93
[2020-08-24] MEDS: sodium chloride 0.9% 1,000 ML 75 ML IV (12:03)
[2020-08-24 16:00] VITALS: BP 156/94; PULSE 106; RESP 18; TEMP 36.9; O2SAT 96
--- NOTE | 2020-08-24 16:38 | P.PN_ITS ---
Subjective Subjective: Interval history: s/p OR yesetrday where he underwent C3/4,C4/5, C5/6 ACDF, improving rigth hand function, working with PT/OT Medications: Reviewed: Yes Vitals/I&O/Wt Last Vital Signs Temp 98.4 F 08/24/20 16:00 Pulse 106 H 08/24/20 16:00 Resp 18 08/24/20 16:00 BP 156/94 08/24/20 16:00 Pulse Ox 96 08/24/20 16:00 08/24/20 08/24/20 08/24/20 06:59 14:59 22:59 Intake Total 1600 / 1860 1150 / 1150 Output Total 1300 / 1555 300 / 300 Balance 300 / 305 850 / 850 Data : 08/24/20 05:40 08/24/20 05:40 A&P Assessment and plan (1) Central cord synd/C5-C7: s/p C3/4,C4/5, C5/6 ACDF yesterday, working with PT/OT, overall appears to be with improving strength. Status: Acute (2) Drug use: Patient reports he has been drug-free for the last month Status: Inactive (3) Alcoholism: Patient reports he has been alcohol free for the last month. Monitor for withdrawal but I would not expect it at this point. No evidence of withdrawal today. Continue thiamine, multivitamin Status: Acute (4) GERD (gastroesophageal reflux disease): Continue Protonix Status: Inactive (5) Tobacco dependency: Encourage abstinence Status: Acute Additional A&P Information Depression, continue duloxetine qd and xanax prn Chronic pain. Continue hydrocodone. Seborrheic dermatitis Full code Dvt ppx: lovenox Attestations Medical Necessity Statement*: per admitting physician note Procedures Arterial Line Size (Gauge): 20 Coding Level of Care Code Acute Radiation Officer for Chg Fwd Diagnoses Central cord synd/C5-C7 Drug use F19.90 Alcoholism F10.20 GERD (gastroesophageal reflux disease) K21.9 Tobacco dependency F17.200
[2020-08-24 20:00] VITALS: BP 160/89; PULSE 105; RESP 14; TEMP 36.6; O2SAT 84
[2020-08-24] MEDS: cyclobenzaprine 10 mg Tablet 5 MG PO (21:03)
[2020-08-24] MEDS: ALPRAZolam 0.25 mg Tablet PO (21:03)
[2020-08-24 21:05] VITALS: PULSE 102; RESP 18; O2SAT 93
[2020-08-24] MEDS: quetiapine 25 mg Tablet 50 MG PO (21:05)
[2020-08-25] VITALS (12 sets, daily range): BP systolic 142–164; BP diastolic 79–101; PULSE 90–99; RESP 12–18; TEMP 36.2–37.2; O2SAT 93–97
[2020-08-25] MEDS: aspirin 81 mg EC Tablet PO (05:24)
[2020-08-25] MEDS: enoxaparin 40 mg/0.4 mL Syringe SUBCUT (05:24)
[2020-08-25] MEDS: cyclobenzaprine 10 mg Tablet 5 MG PO ×3 (05:29→20:36)
[2020-08-25] MEDS: morphine 4 mg/mL SDV 1 mL IVP ×4 (05:30→23:09)
--- NOTE | 2020-08-25 10:06 | PC.SOCIAL ---
IM follow initialed, explained and copy provided to patient. He verbalized understanding and has no questions or concerns.
--- NOTE | 2020-08-25 11:40 | PC.NURSE ---
Notified nurse of blood pressure 154/100
[2020-08-25] MEDS: docusate sodium 100 mg Capsule PO ×2 (12:17→17:17)
[2020-08-25] MEDS: pantoprazole DR 40 mg Tablet PO (12:17)
[2020-08-25] MEDS: duloxetine 30 mg Capsule PO (12:17)
[2020-08-25] MEDS: multivitamin therapeutic Tablet 1 TAB PO (12:17)
[2020-08-25] MEDS: HYDROcodone-acetaminophen 5-325 mg Tablet PO ×2 (12:25→20:37)
[2020-08-25] MEDS: ALPRAZolam 0.25 mg Tablet PO (12:26)
--- NOTE | 2020-08-25 14:46 | PM.PN ---
Subjective Subjective: Interval history: continues to improve currently working with OT. Pain controlled Vitals/I&O/Wt Last Vital Signs Temp 98.9 F 08/25/20 11:40 Pulse 99 08/25/20 11:40 Resp 18 08/25/20 11:40 BP 154/100 08/25/20 11:40 Pulse Ox 95 08/25/20 11:40 08/24/20 08/25/20 08/25/20 22:59 06:59 14:59 Intake Total 140 / 140 Output Total 600 / 900 400 / 1300 200 / 200 Balance -600 / 250 -400 / -150 -60 / -60 Physical Exam Narrative: EXAM NARRATIVE: Moving fingers in Right hand better than yeterday able to ambulate 10 feet Data : 08/24/20 05:40 08/24/20 05:40 A&P Additional A&P Information POD#2 C3-6 ACDF continue therapy case management for d/c planning Attestations Medical Necessity Statement*: continue therapy Procedures Arterial Line Size (Gauge): 20 Coding Level of Care Code Acute Central Communications Specialist for [facility]g [facility]
--- NOTE | 2020-08-25 15:57 | PM.PN ---
Subjective Subjective: Interval history: Patient continues to report improved strength of her upper and lower extremities. Participating with physical therapy. Blood pressure ranging between 150-160/100 systolic. Afebrile and hemodynamically stable Medications: Reviewed: Yes Vitals/I&O/Wt Last Vital Signs Temp 98.9 F 08/25/20 11:40 Pulse 99 08/25/20 11:40 Resp 18 08/25/20 15:12 BP 154/100 08/25/20 11:40 Pulse Ox 95 08/25/20 15:12 08/25/20 08/25/20 08/25/20 06:59 14:59 22:59 Intake Total 140 / 140 Output Total 400 / 1300 200 / 200 Balance -400 / -150 -60 / -60 Physical Exam Narrative: EXAM NARRATIVE: GEN: Awake, alert and oriented, no acute distress HEENT cervical collar in place CVS: S1S2 N RS: CTA B/L Abd: Soft, nt/nd , bs+ SENIOR JAVA DATA ARCHITECT: Lower extremity strength, per Ortho exam Data : 08/24/20 05:40 08/24/20 05:40 A&P Assessment and plan (1) Central cord synd/C5-C7: s/p C3/4,C4/5, C5/6 ACDF on 08/23 , working with PT/OT, overall appears to be with improving strength. Status: Acute (2) Drug use: Patient reports he has been drug-free for the last month Status: Inactive (3) Alcoholism: Patient reports he has been alcohol free for the last month. Monitor for withdrawal but I would not expect it at this point. No evidence of withdrawal today. Continue thiamine, multivitamin Status: Acute (4) GERD (gastroesophageal reflux disease): Continue Protonix Status: Inactive (5) Tobacco dependency: Encourage abstinence Status: Acute (6) Hypertension: Systolic blood pressure ranging between 1 3-1 64, diastolic 90-100 never related in part to pain, however review of numbers from last admission shows systolic blood pressure up to 1 60-1 80 systolic additionally. Add amlodipine 5 mg p.o. daily for essential hypertension Status: Acute Additional A&P Information Depression, continue duloxetine qd and xanax prn Chronic pain. Continue hydrocodone. Seborrheic dermatitis Leukocytosis likely to be postoperative. Trend with a.m. labs. No current localizing signs or symptoms of infection Full code Dvt ppx: lovenox Dispo discharge to SNF pending Attestations Medical Necessity Statement*: Please see admitting team's note Procedures Arterial Line Size (Gauge): 20 Coding Level of Care Code Acute Head Of English for Chg Fwd Diagnoses Central cord synd/C5-C7 Drug use F19.90 Alcoholism F10.20 GERD (gastroesophageal reflux disease) K21.9 Tobacco dependency F17.200 Hypertension I10
[2020-08-25] MEDS: amlodipine 5 mg Tablet PO (17:17)
[2020-08-25] MEDS: quetiapine 25 mg Tablet 50 MG PO (20:37)
[2020-08-25] MEDS: tamsulosin 0.4 mg Capsule PO (20:37)
[2020-08-26] VITALS (10 sets, daily range): BP systolic 124–149; BP diastolic 78–87; PULSE 83–112; RESP 16–18; TEMP 36.7–37.4; O2SAT 93–95
[2020-08-26] MEDS: HYDROcodone-acetaminophen 5-325 mg Tablet PO ×4 (02:39→17:52)
[2020-08-26] MEDS: morphine 4 mg/mL SDV 1 mL IVP ×2 (04:10→09:46)
--- NOTE | 2020-08-26 05:01 | PC.NURSE ---
SHIFT SUMMARY Has rested well tonight. Has been medicated for pain which he says is pretty much generalized. Has received po Hydrocodone X2 and IV Morphine X2. Has c/o sore throat. Has taken ices well tonight. Says they help his sore throat. Voiding large output per urinal. Requires assist due to weakness in arms and legs. Says weakness is getting better. Dressing to anterior neck and cervical collar in place
[2020-08-26 05:09] LABS: Basophils # 0.1 10^3/uL (0.0-0.1); Basophils % 0.8 %; Eosinophils # 0.2 10^3/uL (0.0-0.8); Eosinophils % 2.4 %; Hematocrit 38.2 % (42.0-52.0); Hemoglobin 12.6 g/dL (11.7-16.6); Lymphocytes # 2.5 10^3/uL (0.8-4.8); Lymphocytes % 32.3 %; Mean Corpuscular Hemoglobin 31.7 pg (28.0-34.0); Mean Corpuscular Volume 96.2 fL (80-94); Mean Platelet Volume 9.3 fL (7.4-10.4); Monocytes # 0.8 10^3/uL (0.2-0.9); Monocytes % 9.9 %; Neutrophils # 4.28 10^3/uL (1.8-7.7); Neutrophils % 54.5 %; Nucleated Red Blood Cells % 0 %; Platelet Count 321 10^3/cmm (130-400); Red Blood Count 3.97 10^6/uL (4.1-5.3); Red Cell Distribution Width 11.6 % (12.1-15.1); White Blood Count 7.9 10^3/uL (4.0-10.0)
[2020-08-26] MEDS: aspirin 81 mg EC Tablet PO (05:34)
[2020-08-26] MEDS: enoxaparin 40 mg/0.4 mL Syringe SUBCUT (05:35)
[2020-08-26 06:41] LABS: Alanine Aminotransferase 18 U/L (0-41); Albumin Level 3.6 g/dL (3.5-5.2); Alkaline Phosphatase 126 IU/L (40-130); Anion Gap 12.5 (5-19); Aspartate Amino Transferase 13 U/L (0-40); Blood Urea Nitrogen 9 mg/dL (6-20); Calcium 8.8 mg/dL (8.5-10.5); Carbon Dioxide 30 mmol/L (22-29); Chloride 100 mmol/L (98-107); Globulin 2.9 g/dL (1.3-4.6); Glomerular Filtration Rate 139.4 mL/min (90-130); Glucose 140 mg/dL (65-115); Osmolality Calculated 289 mOsm/kg (285-295); Potassium 3.5 mmol/L (3.5-5.1); Sodium 139 mmol/L (136-145); Total Bilirubin 0.3 mg/dL (0.15-1.2); Total Protein 6.5 g/dL (6.6-8.7)
[2020-08-26] MEDS: docusate sodium 100 mg Capsule PO ×2 (08:23→17:52)
[2020-08-26] MEDS: duloxetine 30 mg Capsule PO (08:23)
[2020-08-26] MEDS: amlodipine 5 mg Tablet PO (08:24)
[2020-08-26] MEDS: multivitamin therapeutic Tablet 1 TAB PO (08:24)
[2020-08-26] MEDS: pantoprazole DR 40 mg Tablet PO (08:24)
--- NOTE | 2020-08-26 10:22 | P.PN_ITS ---
Subjective Subjective: Interval history: patient continues to improve pain controlled Vitals/I&O/Wt Last Vital Signs Temp 98.7 F 08/26/20 07:49 Pulse 90 08/26/20 07:49 Resp 17 08/26/20 09:46 BP 124/79 08/26/20 07:49 Pulse Ox 95 08/26/20 07:49 08/25/20 08/26/20 08/26/20 22:59 06:59 14:59 Intake Total 240 / 380 840 / 1220 240 / 240 Output Total 500 / 700 1700 / 2400 Balance -260 / -320 -860 / -1180 240 / 240 Physical Exam Narrative: EXAM NARRATIVE: More movement in hands and feet. Able to ambulate with walker Data : 08/26/20 04:38 08/26/20 04:38 A&P Additional A&P Information POD#3 C3/4, C4/5, C5/6 ACDF D/C IVs OK to D/C to retirement Needs to work with therapy Attestations Medical Necessity Statement*: OK to D/C to Skilled Nursing Needs therapy Procedures Arterial Line Size (Gauge): 20 Coding Level of Care Code Acute Bullet Assembly Press Operator for Joe Ledezma
[2020-08-26] MEDS: ALPRAZolam 0.25 mg Tablet PO (13:20)
--- NOTE | 2020-08-26 17:48 | PM.PN ---
Subjective Subjective: Interval history: Having some back pain. Not more than previously. Does state that he feels he needs to be more careful that he gets somewhat choked up when trying to drink water in bed. Feels he realizes he needs to sit up fully before trying to drink. Asks to be set up with Dr. Garcia for follow-up after discharge. Overall he has made quite a bit of progress with return of power in his upper extremities but feels still has ways to go. Vitals/I&O/Wt Last Vital Signs Temp 99.3 F 08/26/20 15:49 Pulse 83 08/26/20 15:49 Resp 17 08/26/20 15:49 BP 128/80 08/26/20 15:49 Pulse Ox 94 08/26/20 15:49 08/26/20 08/26/20 08/26/20 06:59 14:59 22:59 Intake Total 840 / 1220 720 / 720 Output Total 1700 / 2400 100 / 100 Balance -860 / -1180 620 / 620 Physical Exam Const: COMMON NORMALS: no acute distress, patient oriented x3 and alert ORIENTATION/CONSCIOUSNESS: Yes awake OTHER: Sitting up in chair. Comfortable. Conversant. HENMT: COMMON NORMALS: oropharynx normal Neck/C-Spine: COMMON NORMALS: no JVD Resp: COMMON NORMALS: normal respiratory effort and clear to auscultation bilaterally AUSCULTATION: clear to auscultation bilaterally Cardio: COMMON NORMALS: no JVD, regular rhythm, S1 normal heart sound present, S2 normal heart sound present and No murmurs present (Cardio) RHYTHM: regular rhythm HEART SOUNDS: S1 normal heart sound present and S2 normal heart sound present GI: COMMON NORMALS: Normal to inspection, nondistended, normoactive bowel sounds present, Soft to palpation and non-tender PALPATION: Yes Soft to palpation Extremity: COMMON NORMALS: no joint enlargement and no pedal edema Neuro: COMMON NORMALS: patient oriented x3 and moves all extremities (Weakness upper extremities, right more than left. Improving compared to De) SENSORIUM/ORIENTATION: Yes alert Skin: COMMON NORMALS: no rashes or lesions noted GENERAL SKIN EXAM: no rashes or lesions noted Data : 08/26/20 04:38 08/26/20 04:38 A&P Assessment and plan (1) Central cord synd/C5-C7: Still present upper extremity weakness, but gradually improving following C3/4,C4/5, C5/6 ACDF on 08/23 Continue work with PT, OT. Arrangements are being made for placement to SNF for further rehabilitation. He states is eager to further work with therapy. Status: Acute (2) Drug use: Patient reports he has been drug-free for the last month Status: Inactive (3) Alcoholism: States that he was drinking to help with pain control. 3-4 beers before sleep. States that he has now stopped entirely. Patient reports he has been alcohol free for the last month. Monitor for withdrawal but I would not expect it at this point. Continue thiamine, multivitamin Status: Acute (4) GERD (gastroesophageal reflux disease): Continue Protonix Status: Inactive (5) Tobacco dependency: Encourage abstinence Status: Acute (6) Hypertension: Today mostly at goal. Monitor. Amlodipine 5 mg p.o. daily for essential hypertension Status: Acute Additional A&P Information Depression, continue duloxetine qd and xanax prn Chronic pain. Continue hydrocodone. Seborrheic dermatitis Leukocytosis resolved. Likely to be postoperative. Attestations Medical Necessity Statement*: Continue admission for postoperative assessment management and arrangements for further rehabilitation. Procedures Arterial Line Size (Gauge): 20 Coding Level of Care Code Acute Tool And Die Supervisor for Chg Fwd Diagnoses Central cord synd/C5-C7 Drug use F19.90 Alcoholism F10.20 GERD (gastroesophageal reflux disease) K21.9 Tobacco dependency F17.200 Hypertension I10
[2020-08-26] MEDS: cyclobenzaprine 10 mg Tablet 5 MG PO (17:52)
[2020-08-26] MEDS: magnesium hydroxide 30 mL UDC PO (17:52)
[2020-08-26] MEDS: quetiapine 25 mg Tablet 50 MG PO (21:16)
[2020-08-27] VITALS (8 sets, daily range): BP systolic 124–134; BP diastolic 78–84; PULSE 83–104; RESP 16–18; TEMP 36.4–36.8; O2SAT 92–95
[2020-08-27] MEDS: HYDROcodone-acetaminophen 5-325 mg Tablet PO ×3 (00:07→11:48)
[2020-08-27] MEDS: enoxaparin 40 mg/0.4 mL Syringe SUBCUT (05:34)
[2020-08-27] MEDS: aspirin 81 mg EC Tablet PO (05:34)
[2020-08-27] MEDS: ALPRAZolam 0.25 mg Tablet PO (05:36)
[2020-08-27] MEDS: cyclobenzaprine 10 mg Tablet 5 MG PO (05:36)
--- NOTE | 2020-08-27 08:01 | P.PN_ITS ---
Subjective Subjective: Interval history: slight more pain today, stopped IV pain meds yesterday Vitals/I&O/Wt Last Vital Signs Temp 97.5 F L 08/27/20 04:00 Pulse 83 08/27/20 04:00 Resp 18 08/27/20 04:00 BP 130/78 08/27/20 04:00 Pulse Ox 95 08/27/20 04:00 08/26/20 08/27/20 08/27/20 22:59 06:59 14:59 Intake Total 460 / 1180 Output Total 200 / 300 625 / 925 300 / 300 Balance 260 / 880 -625 / 255 -300 / -300 Physical Exam Narrative: EXAM NARRATIVE: unchanged progressing with PT Data : 08/26/20 04:38 08/26/20 04:38 A&P Additional A&P Information S/P ACDF C3-6 D/C to skilled facility continue working with PT OK to D/C today Attestations Medical Necessity Statement*: needs placement Procedures Arterial Line Size (Gauge): 20 Coding Level of Care Code Acute Senior Information Developer for Vimalg Darien
[2020-08-27] MEDS: duloxetine 30 mg Capsule PO (08:34)
[2020-08-27] MEDS: pantoprazole DR 40 mg Tablet PO (08:34)
[2020-08-27] MEDS: multivitamin therapeutic Tablet 1 TAB PO (08:34)
[2020-08-27] MEDS: docusate sodium 100 mg Capsule PO (08:34)
[2020-08-27] MEDS: amlodipine 5 mg Tablet PO (08:34)
--- NOTE | 2020-08-27 11:08 | PC.SOCIAL ---
*IMM UPDATE* Gave pt IMM update. Left copy with patient. Initialed, dated, timed and placed in chart.
--- NOTE | 2020-08-27 11:26 | P.PN_ITS ---
Subjective Subjective: Interval history: Denies any complaints. Eager to continue to work with physical therapy. Although progress is slow, he is excited about achieving improvements in his symptoms in upper extremities and mobility. Vitals/I&O/Wt Last Vital Signs Temp 97.9 F 08/27/20 11:24 Pulse 90 08/27/20 11:24 Resp 18 08/27/20 11:24 BP 134/82 08/27/20 11:24 Pulse Ox 95 08/27/20 11:24 08/26/20 08/27/20 08/27/20 22:59 06:59 14:59 Intake Total 460 / 1180 600 / 600 Output Total 200 / 300 625 / 925 300 / 300 Balance 260 / 880 -625 / 255 300 / 300 Physical Exam Const: COMMON NORMALS: no acute distress, patient oriented x3 and alert GENERAL APPEARANCE: cooperative ORIENTATION/CONSCIOUSNESS: Yes awake OTHER: Sitting up in bed. Comfortable. HENMT: COMMON NORMALS: oropharynx normal Neck/C-Spine: COMMON NORMALS: no JVD Resp: COMMON NORMALS: normal respiratory effort and clear to auscultation bilaterally AUSCULTATION: clear to auscultation bilaterally Cardio: COMMON NORMALS: no JVD, regular rhythm, S1 normal heart sound present, S2 normal heart sound present and No murmurs present (Cardio) RHYTHM: regular rhythm HEART SOUNDS: S1 normal heart sound present and S2 normal heart sound present GI: COMMON NORMALS: Normal to inspection, nondistended, normoactive bowel sounds present, Soft to palpation and non-tender PALPATION: Yes Soft to palpation Extremity: COMMON NORMALS: no joint enlargement and no pedal edema Neuro: COMMON NORMALS: patient oriented x3 and moves all extremities (Weakness upper extremities, right more than left. Gradually improving.) SENSORIUM/ORIENTATION: Yes alert Skin: COMMON NORMALS: no rashes or lesions noted GENERAL SKIN EXAM: no rashes or lesions noted Data : 08/26/20 04:38 08/26/20 04:38 A&P Assessment and plan (1) Central cord synd/C5-C7: Still present upper extremity weakness, but gradually improving following C3/4,C4/5, C5/6 ACDF on 08/23 Continue work with PT, OT. Arrangements are being made for placement to SNF for further rehabilitation. He states is eager to further work with therapy. Status: Acute (2) Difficulty in walking: His mobility is slowly improving. He states he is eager to continue working with physical therapy encouraged by progress. Decreased endurance, suspicion of stress, range of motion and poor balance are limiting factors. Now improving to minimal assist with contact-guard with sit to stand, stand to sit. Chair to bed with moderate assist, verbal cueing. Continue therapy. Continue arrangements for placement to rehabilitation versus discharge home if mobility and safety improves sufficiently. Status: Acute (3) Drug use: Patient reports he has been drug-free for the last month Status: Inactive (4) Alcoholism: States that he was drinking to help with pain control. 3-4 beers before sleep. States that he has now stopped entirely. Patient reports he has been alcohol free for the last month. Monitor for withdrawal but I would not expect it at this point. Continue thiamine, multivitamin Status: Acute (5) GERD (gastroesophageal reflux disease): Continue Protonix Status: Inactive (6) Tobacco dependency: Encourage abstinence Status: Acute (7) Hypertension: Mostly at goal. Monitor. Amlodipine 5 mg p.o. daily for essential hypertension Status: Acute Additional A&P Information Depression, continue duloxetine qd and xanax prn Chronic pain. Continue hydrocodone. Seborrheic dermatitis Leukocytosis resolved. Likely to be postoperative. Attestations Medical Necessity Statement*: Continue postoperative care, therapy and mobilization, and disposition planning and arrangements with either r ehabilitation if bed becomes available or return home if achieves sufficient independence and safe level of mobility. Procedures Arterial Line Size (Gauge): 20 Coding Level of Care Code Acute Sas Bi Developer for Chg Fwd Diagnoses Central cord synd/C5-C7 Difficulty in walking R26.2 Drug use F19.90 Alcoholism F10.20 GERD (gastroesophageal reflux disease) K21.9 Tobacco dependency F17.200 Hypertension I10
--- NOTE | 2020-08-27 13:08 | P.DS_ITS ---
Discharge Providers Date of Admission: 08/22/20 11:30 Date of Discharge: August 27, 2020 Attending Provider at Admission: Meet Young DO Attending Provider at Discharge: Meet Young DO Primary Care Provider: Edward Garcia DO Diagnoses at Discharge Discharge Diagnosis (1) Central cord synd/C5-C7: Status: Acute (2) Difficulty in walking: Status: Acute (3) Drug use: Status: Inactive (4) Alcoholism: Status: Acute (5) GERD (gastroesophageal reflux disease): Status: Inactive (6) Tobacco dependency: Status: Acute (7) Hypertension: Status: Acute Reason for Visit Reason for Visit: Neck pain Hospital Course Hospital Course Patient was admitted to the hospital on 08/22/2020 he was unable to walk. He will be stuck on the floor at home. Admitted to the hospital perform surgery on 08/23/2020. He had a C3-C6 ACDF. Patient progressively improved his motor strength continue to have weakness in his hands however is progressively improving range of motion is improving. Patient's stay was uneventful other than progressively getting stronger. At this point he is being discharged to a alf facility to help build the strength and for safety he he should not go home. Until he build the strength back up. Discharge Data Data Completed and Pending: Completed Studies During Hospitalization Category Date Time Status XR cervical spine 1Vport 77710 Rout ine Exams 08/23/20 Completed XR chest 1V holly ble 10165 Urgent Exams 08/22/20 10:18 Completed Pending at discharge Category Date Time Status SARS Covid-2 Anti gen Routine Lab 08/27/20 12:20 Received Labs from last 24 hours 08/27/20 12:20 SARS-CoV-2 Ag (Rap id) Pending Vitals: Last Vital Signs Temp 97.9 F 08/27/20 11:24 Pulse 90 08/27/20 11:24 Resp 18 08/27/20 11:24 BP 134/82 08/27/20 11:24 Pulse Ox 95 08/27/20 11:24 Discharge Plan Discharge Patient Disposition: Xfer SNF Condition: Stable Prescriptions: New acetaminophen 325 mg Tablet 650 mg PO Q4H PRN (Reason: Mild Pain or fever >101.5) Qty: 90 RF: 0 amlodipine 5 mg Tablet 5 mg PO DAILY Qty: 30 RF: 0 DOK 100 mg Capsule 100 mg PO BID Qty: 90 RF: 0 enoxaparin 40 mg/0.4 mL Syringe 40 mg SUBCUT Q24H Qty: 30 RF: 0 Continued (DME) Bone Growth Stimulator E0748 See Rx Instructions .Route .MEDSUPPLY Qty: 1 RF: 0 Isopto Tears 0.5 % Drops 1 drp eye-both Q4H PRN (Reason: Dry Eye(S)) 14 Days Qty: 1 RF: 0 pantoprazole 40 mg Tablet,Delayed Release (Dr/Ec) 40 mg PO DAILY 30 Days Qty: 30 RF: 0 duloxetine 30 mg Capsule,Delayed Release(Dr/Ec) 30 mg PO DAILY 14 Days Qty: 14 RF: 0 multivitamin with folic acid [Thera] 400 mcg Tablet 1 tab PO DAILY Qty: 0 RF: 0 hydrocodone-acetaminophen 5-325 mg tablet 1 tab PO Q8H PRN (Reason: Pain) RF: 0 alprazolam 0.25 mg tablet 0.25 mg PO BID PRN (Reason: Anxiety) RF: 0 cyclobenzaprine 5 mg tablet 5 mg PO TID PRN (Reason: Muscle Spasm) RF: 0 quetiapine 50 mg tablet 50 mg PO BEDTIME RF: 0 aspirin 81 mg tablet,delayed release (DR/EC) 81 mg PO QAM RF: 0 tamsulosin 0.4 mg capsule 0.4 mg PO BEDTIME RF: 0 Discharge Orders: Discharge Order (Routine); Ordered 08/27/20 Ordered By: Parminder Stone Referrals: Meet Young DO [Physician] - 1 week Gulshan Garcia MD [Physician] - 1 week Discharge Diet: Usual diet Discharge Activity: As per PT/OT instructions Activity Restrictions/Additional Instructions: Continue attempts to stop smoking. Abstain from any alcohol as it will lead to progressive worsening of your bal ance, more difficulties with walking. More risk of falls and injury. Please continue to monitor blood pressure twice daily, record values to bring to your appointment. Please discuss with your primary care doctor referral to pain management clinic. Thank you for choosing [facility] for your care! The following is a list of instructions, from your provider, to follow upon your discharge to ensure you have the optimal recovery from your recent injury or surgery. Anterior Cervical Discectomy and Fusion: What to Expect at Home Your Recovery Follow-up care is a samano part of your treatment and safety. Be sure to make and go to all appointments, and call your doctor if you are having problems. If you do not already have a follow-up appointment made, call office in the next 1-3 days to make follow up appointment for 2 weeks at [phone]. It is also a good idea to know your test results and keep a list of the medicines you take. You can expect your neck to feel stiff or sore after surgery. This should improve in the weeks after surgery. But it may take 4 to 6 months for you to get better completely. You may have trouble sitting or standing in one position for very long and may need pain medicine in the weeks after your surgery. It may take 4 to 6 weeks to get back to your usual activities, but it may depend on what kind of surgery you had. Your throat will feel sore and it may be difficult to swallow for the first 3 days after your surgery. As long as you can get liquids down without difficulty, this should slowly improve, otherwise call our office or seek medical attention if it becomes increasingly difficult to get anything down including liquids. Avoid hot liquids for first 3-5 days. Soothing foods/liquids such as jello, pudding, and luke warm soups are recommended until swallowing improves. Staying elevated will also help, it's advised you keep propped up at while sleeping to help reduce the swelling. You may use an ice pack directly on your incision or around it on the front of your neck, using a cloth to protect your skin; and a heating pad to the back of your neck as needed. Do not use over the counter anti-inflammatory medications (Ibuprofen, Motrin, Aleve, Advil, etc) Taking these meds after having a fusion can delay fusion rates, we recommend you avoid them for the first 3 [address] your surgery[address] Dr. Young may advise you to work with a physical therapist to strengthen the muscles around your neck and back - this will be discussed at your follow - up appointments. The pain or numbness you were having in your arms before surgery should get better or go away completely. This care sheet gives you a general idea about how long it will take for you to recover. But each person recovers at a different pace. Follow the steps below to get better as quickly as possible. How can you care for yourself at home? Activity ? Rest when you feel tired. Getting enough sleep will help you recover. ? Try to walk each day. Start by walking a little more than you did the day before. Bit by bit, increase the amount you walk. Walking boosts blood flow and helps prevent pneumonia and constipation. Walking may also decrease your muscle soreness after surgery. ? No lifting anything that is more that 5 pounds. This may include heavy grocery bags and milk containers, a heavy briefcase or backpack, cat litter or dog food bags, a child, or a vacuum cleaner wall. ? Avoid strenuous activities, such as bicycle riding, jogging, weightlifting, or aerobic exercise, until your doctor says it is okay. ? Do not drive until your follow-up visit after your surgery, or until your doctor says it isokay. ? Avoid taking long car trips for 2 to 4 weeks after surgery. Your neck may become tired and painful from sitting too long in one position. ? You will probably need to take 4 to 6 weeks off from work. It depends on the type of work you do and how you feel. ? You may have sex as soon as you feel able, but avoid positions that put stress on your neck or cause pain. Diet ? You can eat your normal diet. If your stomach is upset, try bland, low-fat foods like plain rice, broiled chicken, toast, and yogurt ? Drink plenty of fluids. If you have kidney, heart, or liver disease and have to limit fluids, talk with your doctor before you increase the amount of fluids you drink. ? You may notice that your bowel movements are not regular right after your surgery. This is common. Try to avoid constipation and straining with bowel movements. You may want to take a fiber supplement every day. If you have not had a bowel movement after a couple of days, ask your doctor about taking a mild laxative. Medicines ? Take pain medicines exactly as directed. 1. If Dr. Young gave you a prescription medicine for pain, take lt as prescribed. 2. Do not take two or more pain medicines at the same time unless the doctor told you to. Many pain medicines have acetaminophen, which is Tylenol. Too much acetaminophen {Tylenol) can be harmful. 3. If you think your pain pill is making you sick to your stomach: 4. Take your pills after meals (unless your doctor has told you not to). 5. Ask your Dr. for a different pain pill. Incisioncare ? Remove your dressing 48hours after your surgery. Ok to shower and get the incision wet. Do not overtly wash your incision. When done, pad dry, leave open to air thereafter. Avoid creams and ointments directly on your incision. ? Your sutures in the incision will dissolve and fall out on their own. ? Keep the area clean and dry. You may cover it with a gauze bandage if it weeps or rubs against clothing; if you choose to do this, change the dressing everyday. Other instructions ? Use a heating pad, hot water bottle, or gentle massage on your back to reduce stiffness. Avoid putting heat on your incision When should you call for help? ? Call 911 anytime you think you may need emergency care. For example, call if: ? You pass out (lose consciousness). ? You have sudden chest pain and shortness of breath, or you cough upblood. ? You cannot swallow. ? You have severe pain in your neck or back. ? Call your Dr. or seek immediate medical care if: ? You have pain that does not get better after you take pain pills. ? You have loose stitches, or your incision comes open. ? You have blood or fluid draining from the incision. ? You have signs of infection, such as: 1. Increased pain, swelling, warmth, or redness. 2. Red streaks leading from the site. 3. Pus draining from the site. 4. Swollen lymph nodes in your neck or armpits. 5. A fever. ? You have severe pain in your arms. ? You have new or increased weakness or numbness in your arms. ? Watch closely for any changes in your health, and be sure to contact your doctor if: ? You do not have a bowel movement after taking a laxative. 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
[2020-08-27 13:37] LABS: SARS Covid-2 Antigen Negative (Negative)
== END 2020-08-27 14:11 | disposition skilled nursing facility (03) | DRG 30 ==
LOC: ER 12:54 → MEDSURG 18:16
PROVIDERS: Internal Medicine; Student in an Organized Health Care Education/Training Program; Admitting Provider Orthopaedic Surgery; Emergency Provider Physician Assistant; PCP Internal Medicine; Visit Provider Orthopaedic Surgery
PROC: 0RB30ZZ Excision of Cervical Vertebral Disc, Open Approach (ICD-10-PCS; CPT 22551; principal; 2020-08-23 12:30)
DX: S14.121A Central cord syndrome at C1 level of cervical spinal cord, initial encounter (principal); X58.XXXA Exposure to other specified factors, initial encounter; M48.02 Spinal stenosis, cervical region; F10.21 Alcohol dependence, in remission; J44.9 Chronic obstructive pulmonary disease, unspecified; M47.9 Spondylosis, unspecified; F32.9 Major depressive disorder, single episode, unspecified; K21.9 Gastro-esophageal reflux disease without esophagitis; M10.9 Gout, unspecified; N40.1 Benign prostatic hyperplasia with lower urinary tract symptoms; Q55.22 Retractile testis; F17.210 Nicotine dependence, cigarettes, uncomplicated; G89.29 Other chronic pain; L21.9 Seborrheic dermatitis, unspecified; F19.21 Other psychoactive substance dependence, in remission; I10 Essential (primary) hypertension; Z79.891 Long term (current) use of opiate analgesic; Z79.82 Long term (current) use of aspirin
CPT/HCPCS: 12345; 36415; 71045; 72020; 72040; 76000; 80053; 81003; 85025; 85610; 85730; 87426; 93005; 94640; 96372; 96374; 97110; 97116; 97163; 97166; 97530; 97535; 99283; C1713; C9359; J0690; J1650; J1885; J2250; J2270; J2704; J3010; J3490; J7030; J7611; L0174

== ENCOUNTER → 2020-10-04 10:36 | Outpatient (BNVA) | payer MEDICARE, MEDICAID, SELFPAY | PROVIDERS: PCP Internal Medicine; Visit Provider Orthopaedic Surgery | DX: Z48.89 Encounter for other specified surgical aftercare (principal); Z98.1 Arthrodesis status | CPT/HCPCS: 72040 ==

== ENCOUNTER → 2020-10-16 08:20 | Outpatient (BNVA) | payer MEDICARE, MEDICAID, SELFPAY | PROVIDERS: PCP Internal Medicine; Visit Provider Podiatrist Foot & Ankle Surgery | DX: M79.671 Pain in right foot (principal); M21.611 Bunion of right foot | CPT/HCPCS: 73630 ==

== ENCOUNTER → 2020-11-15 11:05 | Outpatient (BNVA) | payer MEDICARE, MEDICAID, SELFPAY | PROVIDERS: PCP Internal Medicine; Visit Provider Orthopaedic Surgery | DX: Z48.89 Encounter for other specified surgical aftercare (principal) | CPT/HCPCS: 72040 ==

== ENCOUNTER → 2021-09-16 16:25 | Outpatient (BNVA) | payer MEDICARE, MEDICAID, SELFPAY | PROVIDERS: PCP Family Medicine Adult Medicine; Visit Provider Urology | DX: N13.8 Other obstructive and reflux uropathy (principal); N40.1 Benign prostatic hyperplasia with lower urinary tract symptoms; R33.9 Retention of urine, unspecified; N30.80 Other cystitis without hematuria; Q55.22 Retractile testis; N45.1 Epididymitis; R32 Unspecified urinary incontinence; N52.9 Male erectile dysfunction, unspecified | CPT/HCPCS: 81003; 87086 ==

== ENCOUNTER → 2021-10-14 12:57 | Outpatient (BNVA) | payer MEDICARE, MEDICAID, SELFPAY | PROVIDERS: PCP Family Medicine Adult Medicine; Visit Provider Urology | DX: N40.1 Benign prostatic hyperplasia with lower urinary tract symptoms (principal); N13.8 Other obstructive and reflux uropathy; Q55.22 Retractile testis; N45.1 Epididymitis; R32 Unspecified urinary incontinence; N52.9 Male erectile dysfunction, unspecified | CPT/HCPCS: 81003 ==

== ENCOUNTER → 2022-05-11 07:58 | Outpatient (BNVA) | payer MEDICARE, MEDICAID, SELFPAY | PROVIDERS: PCP Family Medicine Adult Medicine; Visit Provider Podiatrist Foot & Ankle Surgery | DX: M21.611 Bunion of right foot (principal); L84 Corns and callosities; M21.41 Flat foot [pes planus] (acquired), right foot; M21.42 Flat foot [pes planus] (acquired), left foot; M20.42 Other hammer toe(s) (acquired), left foot; M20.41 Other hammer toe(s) (acquired), right foot | CPT/HCPCS: 99213; 99214 ==

== ENCOUNTER → 2022-06-08 07:58 | Outpatient (BNVA) | payer MEDICARE, MEDICAID, SELFPAY | PROVIDERS: PCP Family Medicine Adult Medicine; Visit Provider Podiatrist Foot & Ankle Surgery | DX: M21.611 Bunion of right foot (principal); L84 Corns and callosities; M21.41 Flat foot [pes planus] (acquired), right foot; M21.42 Flat foot [pes planus] (acquired), left foot; M20.42 Other hammer toe(s) (acquired), left foot; M20.41 Other hammer toe(s) (acquired), right foot | CPT/HCPCS: 73630; 99214 ==

== ENCOUNTER → 2022-08-12 08:02 | Outpatient (BNVA) | payer MEDICARE, MEDICAID, SELFPAY | PROVIDERS: PCP Family Medicine Adult Medicine; Visit Provider Podiatrist Foot & Ankle Surgery | DX: M21.611 Bunion of right foot (principal); L84 Corns and callosities; M21.41 Flat foot [pes planus] (acquired), right foot; M21.42 Flat foot [pes planus] (acquired), left foot; M20.42 Other hammer toe(s) (acquired), left foot; M20.41 Other hammer toe(s) (acquired), right foot | CPT/HCPCS: 99214 ==

== ENCOUNTER → 2022-09-30 08:32 | Outpatient (BNVA) | payer MEDICARE, MEDICAID, SELFPAY | PROVIDERS: PCP Family Medicine Adult Medicine; Visit Provider Podiatrist Foot & Ankle Surgery | DX: M21.611 Bunion of right foot (principal); L84 Corns and callosities; M21.41 Flat foot [pes planus] (acquired), right foot; M21.42 Flat foot [pes planus] (acquired), left foot; M20.42 Other hammer toe(s) (acquired), left foot; M20.41 Other hammer toe(s) (acquired), right foot | CPT/HCPCS: 99213 ==